=== PATIENT | female | born 1945 | race Hispanic/Latino ===

== ENCOUNTER 2023-07-24 15:57 | Inpatient (IN) | payer OTHER ==
--- OUTSIDE RECORDS SUMMARY | 2023-07-24 16:01 | XMS REPORT | Continuity of Care Document ---
:1945 Author Organization [facility] t Address [address] [facility] [address] [place] [id number] Care Team Providers Name Role Phone José Morrison Attending Clinician Unavailable Grady Murphy Attending Clinician Jocelyn-Mbayo_A_AH Attending Clinician Unavailable Jocelyn-Mbayo_A_AH Admitting Clinician Unavailable Payers Payer Name Policy Type Policy Number Effective Date Expiration Date S boris [facility] [id number] [facility]:00 (MEDICARE REPLACEMENT/ADVANT AGE - HMO) Problems Condition Condition Condition Status Onset Resolution Last Treating Co mments Source Name Details Category Date Date Treatment Clinician Date Obesity Obesity Problem Active 2019- [place] 5-22 Family 00:00: Practic 00 e Gallstone Gallstone Problem Active Lizbeth martinez 5-22 Family 00:00: Practic 00 e Hyperchole Hyperchole Problem Active 2019-0 V illage sterolemia sterolemia 5-22 Fa georges 00:00: Practic 00 e Major Major Problem Active 2019- [place] 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 Fa georges disorder Disorder 00:00: Practi c 00 e Cholecysti Problem Active 2023-02-13 M emoria tis Cholecysti 10:09:58 l without tis [place] calculus without (disorder) calculus (disorder) Active Problem 02/13/2023 [facility] Dementia Dementia Problem Active 2023-02-13 Memoria (disorder) (disorder) 10:09:58 l Active [place] Problem 02/13/2023 [facility] Hypertensi Hypertens Problem Active 2023-02-13 Memoria ve fabby 10:09:58 l disorder, disorder, Herm musa systemic systemic arterial arterial (disorder) (disorder) Active Problem 02/13/2023 [facility] Hyperlipid Hyperlipi Problem Active 2023-02-13 Memoria emia demia 10:09:58 l (disorder) (disorder) He rmann Active Problem 02/13/2023 [facility] Hypothyroi Hypothyro Problem Active 2023-02-13 Memoria dism idism 10:09:58 l (disorder) (disorder) He rmann Active Problem 02/13/2023 [facility] Labile Labile Problem Active 2023-02-13 [place] bro affect affect 10:09:58 l (finding) (finding) Herm musa Active Problem 02/13/2023 [facility] Memory Memory Problem Active 2023-02-13 Mem oria impairment impairment 10:09:58 l (finding) (finding) Herm musa Active Problem 02/13/2023 [facility] Morbid Morbid Problem Active 2023-02-13 [place] bro obesity obesity 10:09:58 l (disorder) (disorder) He rmann Active Problem 02/13/2023 [facility] 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 (disorder) (disorder) Active Problem 02/13/2023 [facility] [id number] Tobacco Problem Commo n use Spirit disorder - [facility] [id number] Acquired Problem Comm on hypothyroi Spirit dism - [facility] [id number] Mixed Problem Common hyperlipid Spirit emia - [facility] [id number] Alzheimer' Problem C ommon 17711 s disease Spirit with early - [facility] onset [facility] [id number] Incontinen Problem Com mon ce of Spirit feces, - [facility] unspecifie [facility] fecal [facility] incontinen Medica l ce type Center [id number] Current Problem Common moderate Spirit episode of - [facility] major [facility] without Center prior episode [id number] Body mass Problem Com mon index Spirit [BMI] - [facility] 40.0-44.9, [facility] [id number] Essential Problem Comm on hypertensi Spirit on - [facility] [id number] Morbid Problem Commo n 9104 (severe) Spirit obesity - [facility] due to [facility] [id number] Generalize Problem Com mon d anxiety Spirit disorder - [facility] Alzheimer' Alzheimer' Problem C ommon s disease 's disease Spi rit with late - CHI onset [facility] [id number] Elevated Problem Commo n fasting Spirit blood - [facility] sugar [facility] [id number] Noncomplia Problem Co mmon nce with Spirit dietary - [facility] restrictio [facility] Allergies, Adverse Reactions, Alerts Allergy Allergy Status Severity Reaction(s) Onset Inactive Treating Comm ents Source Name Type Date Date Clinician No Known No Known Active Memori a Medicati Medicati l on on Jayro Allergie Allergie s s Social History Social Habit Start Date Stop Date Quantity Comments Source History of Tobacco Current Smoker Co mmon Spirit - [facility] Use [facility] [place] Sex Assigned At Com mon Spirit - [facility] Smoking Status Start Date Stop Date Source Light Tobacco Smoker [facility] Practice Tobacco smoking status 2022-07-22 16:07:25 Tommyor rbuen Dial Medications Ordered Filled Start Stop Current Ordering Indication Dosage Frequency Signature Comments Components Source Medication Medication Date Date Medication? Clinician (SIG) Name Name memantine Yes = 1 tab, [place] bro 10 mg oral 2-28 PO, BID, # l tablet 17:48: 180 tab, 3 Lily nn 00 Refill(s), Pharmacy: [id number] memantine Yes = 1 tab, [place] bro 10 mg oral 2-28 PO, BID, # l tablet 17:48: 180 tab, 3 Lily nn 00 Refill(s), Pharmacy: [id number] Aricept 10 Yes 10 mg = 1 Me moria mg oral 8-25 tab, PO, l tablet 16:13: Bedtime, # Lily nn 00 90 tab, 3 Refill(s), Pharmacy: [facility] #[id number] Aricept 10 2021-0 Yes 10 mg = 1 Me moria mg oral 8-25 tab, PO, l tablet 16:13: Bedtime, # Lily nn 00 90 tab, 3 Refill(s), Pharmacy: [facility] #[id number] Aricept 10 2021-0 Yes 10 mg = 1 Me moria mg oral 8-25 tab, PO, l tablet 16:13: Bedtime, # Lily nn 00 90 tab, 3 Refill(s), Pharmacy: [facility] #[id number] cholestyram 2021-0 Yes 4 gm, PO, M emoria ine 8-25 BID, 0 l 16:09: Refill(s) [place] cholestyram 2021-0 Yes 4 gm, PO, M emoria ine 8-25 BID, 0 l 16:09: Refill(s) Jayro cholestyram 2021-0 Yes 4 gm, PO, M emoria ine 8-25 BID, 0 l 16:09: Refill(s) [place] memantine Yes = 1 tab, [place] bro 10 mg oral 3-23 PO, BID, # l tablet 14:44: 180 tab, 3 Lily nn 00 Refill(s), Pharmacy: [facility] #[id number], 142.24, cm, 07/18/20 11:38:00 CDT, Height, 85, kg, 07/18/20 11:38:00 CDT, Weight memantine Yes = 1 tab, [place] bro 10 mg oral 3-23 PO, BID, # l tablet 14:44: 180 tab, 3 Lily nn 00 Refill(s), Pharmacy: [facility] #[id number], 142.24, cm, 07/18/20 11:38:00 CDT, Height, 85, kg, 07/18/20 11:38:00 CDT, Weight memantine 0 Yes = 1 tab, [place] bro 10 mg oral 3-23 PO, BID, # l tablet 14:44: 180 tab, 3 Lily nn 00 Refill(s), Pharmacy: [facility] #[id number], 142.24, cm, 07/18/20 11:38:00 CDT, Height, 85, kg, 07/18/20 11:38:00 CDT, Weight memantine 2021-0 Yes = 1 tab, [place] bro 10 mg oral 2-25 PO, BID, # l tablet 16:17: 60 tab, 6 Shan n 00 Refill(s), Pharmacy: [facility] #[id number], 142.24, cm, 07/18/20 11:38:00 CDT, Height, 85, kg, 07/18/20 11:38:00 CDT, Weight memantine 2021-0 Yes = 1 tab, [place] bro 10 mg oral 2-25 PO, BID, # l tablet 16:17: 60 tab, 6 Shan n 00 Refill(s), [id number], 142.24, cm, 07/18/20 11:38:00 CDT, Height, 85, kg, 07/18/20 11:38:00 CDT, Weight memantine 2021-0 Yes = 1 tab, [place] bro 10 mg oral 2-25 PO, BID, # l tablet 16:17: 60 tab, 6 Shan n 00 Refill(s), [id number], 142.24, cm, 07/18/20 11:38:00 CDT, Height, 85, kg, 07/18/20 11:38:00 CDT, Weight Donepezil 2020-0 Yes 10 mg = 1 Mem oria hydrochlori 9-01 tab, PO, l de 10 MG 14:38: Bedtime, # Her phillips Oral Tablet 00 90 tab, 3 [Aricept] Refill(s), [id number], 142.24, cm, 07/18/20 11:38:00 CDT, Height, 85, kg, 07/18/20 11:38:00 CDT, Weight Donepezil 2020-0 Yes 10 mg = 1 Mem oria hydrochlori 9-01 tab, PO, l de 10 MG 14:38: Bedtime, # Her phillips Oral Tablet 00 90 tab, 3 [Aricept] Refill(s), [id number], 142.24, cm, 07/18/20 11:38:00 CDT, Height, 85, kg, 07/18/20 11:38:00 CDT, Weight Donepezil 2020-0 Yes 10 mg = 1 Mem oria hydrochlori 9-01 tab, PO, l de 10 MG 14:38: Bedtime, # Her phillips Oral Tablet 00 90 tab, 3 [Aricept] Refill(s), Pharmacy: [facility] #[id number], 142.24, cm, 07/18/20 11:38:00 CDT, Height, 85, kg, 07/18/20 11:38:00 CDT, Weight Donepezil 2020-0 Yes 10 mg = 1 Mem oria hydrochlori 8-25 tab, PO, l de 10 MG 16:25: Bedtime, # Her phillips Oral Tablet 00 30 tab, 4 [Aricept] Refill(s), Pharmacy: [facility] #[id number], 142.24, cm, 07/18/20 11:38:00 CDT, Height, 85, kg, 07/18/20 11:38:00 CDT, Weight Donepezil 2020-0 Yes 10 mg = 1 Mem oria hydrochlori 8-25 tab, PO, l de 10 MG 16:25: Bedtime, # Her phillips Oral Tablet 00 30 tab, 4 [Aricept] Refill(s), Pharmacy: [facility] #[id number], 142.24, cm, 07/18/20 11:38:00 CDT, Height, 85, kg, 07/18/20 11:38:00 CDT, Weight Donepezil 2020-0 Yes 10 mg = 1 Mem oria hydrochlori 8-25 tab, PO, l de 10 MG 16:25: Bedtime, # Her phillips Oral Tablet 00 30 tab, 4 [Aricept] Refill(s), Pharmacy: [facility] #[id number], 142.24, cm, 07/18/20 11:38:00 CDT, Height, 85, kg, 07/18/20 11:38:00 CDT, Weight Lidocaine Lidocaine 2020-0 No 10mg Com mon 5-10 Spirit 00:00: - [facility] 00 [facility] Celestone Celestone 2020-0 No 6mg Com mon Soluspan Soluspan 5-10 Spirit (Betamethas (Betamethas 00:00: - CHI one) one) 00 [facility] Lidocaine Lidocaine 2020-0 No 10mg Com mon 5-10 Spirit 00:00: - [facility] 00 [facility] Celestone Celestone 2020-0 No 6mg Com mon Soluspan Soluspan 5-10 Spirit (Betamethas (Betamethas 00:00: - CHI one) one) 00 [facility] Lidocaine Lidocaine 2020-0 No 10mg Com mon 5-10 Spirit 00:00: - [facility]I 00 [facility] Celestone Celestone 2020-0 No 6mg Com mon Soluspan Soluspan 5-10 Spirit (Betamethas (Betamethas 00:00: - CHI one) one) 00 [facility] Lidocaine Lidocaine 2020-0 No 10mg Com mon 5-10 Spirit 00:00: - [facility]I 00 [facility] Celestone Celestone 2020-0 No 6mg Com mon Soluspan Soluspan 5-10 Spirit (Betamethas (Betamethas 00:00: - CHI one) one) 00 [facility] Lidocaine Lidocaine 2020-0 No 10mg Com mon 5-10 Spirit 00:00: - [facility]I 00 [facility] Celestone Celestone 2020-0 No 6mg Com mon Soluspan Soluspan 5-10 Spirit (Betamethas (Betamethas 00:00: - CHI one) one) 00 [facility] Lidocaine Lidocaine 2020-0 No 10mg Com mon 5-10 Spirit 00:00: - [facility]I 00 [facility] Celestone Celestone 2020-0 No 6mg Com mon Soluspan Soluspan 5-10 Spirit (Betamethas (Betamethas 00:00: - CHI one) one) 00 [facility] Lidocaine Lidocaine 2020-0 No 10mg Com mon 5-10 Spirit 00:00: - [facility]I 00 [facility] Celestone Celestone 2020-0 No 6mg Com mon Soluspan Soluspan 5-10 Spirit (Betamethas (Betamethas 00:00: - CHI one) one) 00 [facility] Donepezil 2020-0 Yes 10 mg = 1 Mem oria hydrochlori 2-12 tab, PO, l de 10 MG 17:41: Bedtime, # Her phillips Oral Tablet 00 30 tab, 4 [Aricept] Refill(s), Pharmacy: [facility] #[id number], 142.24, cm, 07/18/20 11:38:00 CDT, Height, 85, kg, 07/18/20 11:38:00 CDT, Weight Donepezil 2021-0 Yes 10 mg = 1 Mem oria hydrochlori 2-12 tab, PO, l de 10 MG 17:41: Bedtime, # Her phillips Oral Tablet 00 30 tab, 4 [Aricept] Refill(s), Pharmacy: [facility] #[id number], 142.24, cm, 07/18/20 11:38:00 CDT, Height, 85, kg, 07/18/20 11:38:00 CDT, Weight Donepezil 1-0 Yes 10 mg = 1 Mem oria hydrochlori 2-12 tab, PO, l de 10 MG 17:41: Bedtime, # Her phillips Oral Tablet 00 30 tab, 4 [Aricept] Refill(s), Pharmacy: [facility] #[id number], 142.24, cm, 07/18/20 11:38:00 CDT, Height, 85, kg, 07/18/20 11:38:00 CDT, Weight Donepezil 2020-0 Yes 10 mg = 1 Mem oria hydrochlori 8-21 tab, PO, l de 10 MG 16:46: Bedtime, # Her phillips Oral Tablet 00 30 tab, 4 [Aricept] Refill(s), [id number], 142.24, cm, 07/18/20 11:38:00 CDT, Height, 85, kg, 07/18/20 11:38:00 CDT, Weight Donepezil 2020-0 Yes 10 mg = 1 Mem oria hydrochlori 8-21 tab, PO, l de 10 MG 16:46: Bedtime, # Her phillips Oral Tablet 00 30 tab, 4 [Aricept] Refill(s), Pharmacy: [facility] #[id number], 142.24, cm, 07/18/20 11:38:00 CDT, Height, 85, kg, 07/18/20 11:38:00 CDT, Weight Donepezil 2020-0 Yes 10 mg = 1 Mem oria hydrochlori 8-21 tab, PO, l de 10 MG 16:46: Bedtime, # Her phillips Oral Tablet 00 30 tab, 4 [Aricept] Refill(s), Pharmacy: [facility] #[id number], 142.24, cm, 07/18/20 11:38:00 CDT, Height, 85, kg, 07/18/20 11:38:00 CDT, Weight Donepezil 2020-0 Yes 10 mg = 1 Mem oria hydrochlori 5-21 tab, PO, l de 10 MG 17:04: Bedtime, # Her phillips Oral Tablet 00 30 tab, 4 [Aricept] Refill(s), Pharmacy: [facility] #[id number] Memantine 2020-0 Yes 10 mg = 1 Mem oria hydrochlori 5-21 tab, PO, l de 10 MG 17:04: BID, # 60 Herm musa Oral Tablet 00 tab, 6 [Namenda] Refill(s), Pharmacy: [id number] Donepezil 2020-0 Yes 10 mg = 1 Mem oria hydrochlori 5-21 tab, PO, l de 10 MG 17:04: Bedtime, # Her phillips Oral Tablet 00 30 tab, 4 [Aricept] Refill(s), Pharmacy: [facility] #[id number] Memantine 2020-0 Yes 10 mg = 1 Mem oria hydrochlori 5-21 tab, PO, l de 10 MG 17:04: BID, # 60 Herm musa Oral Tablet 00 tab, 6 [Namenda] Refill(s), Pharmacy: [id number] Donepezil 2020-0 Yes 10 mg = 1 Mem oria hydrochlori 5-21 tab, PO, l de 10 MG 17:04: Bedtime, # Her phillips Oral Tablet 00 30 tab, 4 [Aricept] Refill(s), Pharmacy: [id number] Memantine 2020-0 Yes 10 mg = 1 Mem oria hydrochlori 5-21 tab, PO, l de 10 MG 17:04: BID, # 60 Herm musa Oral Tablet 00 tab, 6 [Namenda] Refill(s), Pharmacy: [id number] Memantine 2020-0 Yes 5 mg = 1 [place] bro hydrochlori 1-23 tab, PO, l de 5 MG 17:55: BID, # 60 Lily nn Oral Tablet 00 tab, 6 [Namenda] Refill(s), Pharmacy: [id number] Memantine 2020-0 Yes 5 mg = 1 [place] bro hydrochlori 1-23 tab, PO, l de 5 MG 17:55: BID, # 60 Lily nn Oral Tablet 00 tab, 6 [Namenda] Refill(s), Pharmacy: [id number] Memantine 2020-0 Yes 5 mg = 1 [place] bro hydrochlori 1-23 tab, PO, l de 5 MG 17:55: BID, # 60 Lily nn Oral Tablet 00 tab, 6 [Namenda] Refill(s), Pharmacy: [facility] #[id number] Donepezil 2020-0 Yes 10 mg = 1 Mem oria hydrochlori 1-23 tab, PO, l de 10 MG 17:51: Bedtime, # Her phillips Oral Tablet 00 30 tab, 4 [Aricept] Refill(s), Pharmacy: [id number] Donepezil 2020-0 Yes 10 mg = 1 Mem oria hydrochlori 1-23 tab, PO, l de 10 MG 17:51: Bedtime, # Her phillips Oral Tablet 00 30 tab, 4 [Aricept] Refill(s), Pharmacy: [id number] Donepezil 2020-0 Yes 10 mg = 1 Mem oria hydrochlori 1-23 tab, PO, l de 10 MG 17:51: Bedtime, # Her phillips Oral Tablet 00 30 tab, 4 [Aricept] Refill(s), Pharmacy: [id number] Donepezil 2019-0 Yes 10 mg = 1 Mem oria hydrochlori 9-17 tab, PO, l de 10 MG 15:46: Bedtime, # Her phillips Oral Tablet 32 30 tab, 4 [Aricept] Refill(s), Pharmacy: [id number] Donepezil 2019-0 Yes 10 mg = 1 Mem oria hydrochlori 9-17 tab, PO, l de 10 MG 15:46: Bedtime, # Her phillips Oral Tablet 32 30 tab, 4 [Aricept] Refill(s), Pharmacy: [facility] #[id number] Donepezil 2019-0 Yes 10 mg = 1 Mem oria hydrochlori 9-17 tab, PO, l de 10 MG 15:46: Bedtime, # Her phillips Oral Tablet 32 30 tab, 4 [Aricept] Refill(s), [id number] Donepezil 2019-0 Yes 10 mg = 1 Mem oria hydrochlori 5-10 tab, PO, l de 10 MG 15:02: Bedtime, # Her phillips Oral Tablet 02 30 tab, 4 [Aricept] Refill(s), Pharmacy: [id number] Donepezil 2019-0 Yes 10 mg = 1 Mem oria hydrochlori 5-10 tab, PO, l de 10 MG 15:02: Bedtime, # Her phillips Oral Tablet 02 30 tab, 4 [Aricept] Refill(s), [id number] Donepezil 2019-0 Yes 10 mg = 1 Mem oria hydrochlori 5-10 tab, PO, l de 10 MG 15:02: Bedtime, # Her phillips Oral Tablet 02 30 tab, 4 [Aricept] Refill(s), [id number] Donepezil 2019-0 No 10 mg = 1 Mem oria hydrochlori 2-07 tab, PO, l de 10 MG 15:55: Bedtime, # Her phillips Oral Tablet 00 30 tab, 4 [Aricept] Refill(s), [id number] Donepezil 2019-0 No 10 mg = 1 Mem oria hydrochlori 2-07 tab, PO, l de 10 MG 15:55: Bedtime, # Her phillips Oral Tablet 00 30 tab, 4 [Aricept] Refill(s), [id number] Donepezil 2019-0 No 10 mg = 1 Mem oria hydrochlori 2-07 tab, PO, l de 10 MG 15:55: Bedtime, # Her phillips Oral Tablet 00 30 tab, 4 [Aricept] Refill(s), [id number] Donepezil 2018- No 5 mg = 1 [place] bro hydrochlori 2-19 tab, PO, l de 5 MG 15:23: Bedtime, # Herm musa Oral Tablet 00 30 tab, 3 [Aricept] Refill(s), [id number] Donepezil 2017-11 No 5 mg = 1 [place] bro hydrochlori 2-19 tab, PO, l de 5 MG 15:23: Bedtime, # Herm musa Oral Tablet 00 30 tab, 3 [Aricept] Refill(s), [id number] Donepezil 2017-11 No 5 mg = 1 [place] bro hydrochlori 2-19 tab, PO, l de 5 MG 15:23: Bedtime, # Herm musa Oral Tablet 00 30 tab, 3 [Aricept] Refill(s), [id number] lisinopril 2017-11 Yes 40 mg = 1 Me moria 40 mg oral 1-20 tab, PO, l tablet 16:34: Daily, # Jayro 00 30 tab, 0 Refill(s) metoprolol 2017-11 Yes 100 mg = 1 M emoria 100 mg oral 1-20 tab, PO, l tablet, 16:34: Daily, # Shan n extended 00 30 tab, 0 release Refill(s) amLODIPine 2017-11 Yes 5 mg = 1 Mem oria 5 mg oral 1-20 tab, PO, l tablet 16:34: Daily, # Jayro 00 30 tab, 0 Refill(s) levothyroxi 2017-11 Yes 88 Memori a ne 88 mcg 1-20 microgram l (0.088 mg) 16:34: = 1 tab, Her phillips oral tablet 00 PO, Daily, # 30 tab, 0 Refill(s) pravastatin 2017-11 Yes 20 mg = 1 M emoria 20 mg oral 1-20 tab, PO, l tablet 16:34: Bedtime, # Lily nn 00 30 tab, 0 Refill(s) amLODIPine 2017-11 Yes 5 mg = 1 Mem oria 5 mg oral 1-20 tab, PO, l tablet 16:34: Daily, # [place] 00 30 tab, 0 Refill(s) metoprolol 2017-11 Yes 100 mg = 1 M emoria 100 mg oral 1-20 tab, PO, l tablet, 16:34: Daily, # Shan n extended 00 30 tab, 0 release Refill(s) escitalopra 2017-11 Yes 10 mg = 1 M emoria m 10 mg 1-20 tab, PO, l oral tablet 16:34: Daily, # He rmann 00 30 tab, 0 Refill(s) pravastatin 2017-11 Yes 20 mg = 1 M emoria 20 mg oral 1-20 tab, PO, l tablet 16:34: Bedtime, # Lily nn 00 30 tab, 0 Refill(s) lisinopril 2017-11 Yes 40 mg = 1 Me moria 40 mg oral 1-20 tab, PO, l tablet 16:34: Daily, # [place] 00 30 tab, 0 Refill(s) levothyroxi 2017-11 Yes 88 Memori a ne 88 mcg 1-20 microgram l (0.088 mg) 16:34: = 1 tab, Her phillips oral tablet 00 PO, Daily, # 30 tab, 0 Refill(s) amLODIPine 2017-11 Yes 5 mg = 1 Mem oria 5 mg oral 1-20 tab, PO, l tablet 16:34: Daily, # [place] 00 30 tab, 0 Refill(s) metoprolol 2017-11 Yes 100 mg = 1 M emoria 100 mg oral 1-20 tab, PO, l tablet, 16:34: Daily, # Shan n extended 00 30 tab, 0 release Refill(s) escitalopra 2017-11 Yes 10 mg = 1 M emoria m 10 mg 1-20 tab, PO, l oral tablet 16:34: Daily, # Rai rmann 00 30 tab, 0 Refill(s) pravastatin 2017-11 Yes 20 mg = 1 M emoria 20 mg oral 1-20 tab, PO, l tablet 16:34: Bedtime, # Lily nn 00 30 tab, 0 Refill(s) lisinopril 2017-11 Yes 40 mg = 1 Me moria 40 mg oral 1-20 tab, PO, l tablet 16:34: Daily, # Jayro 00 30 tab, 0 Refill(s) levothyroxi 2017-11 Yes 88 Memori a ne 88 mcg 1-20 microgram l (0.088 mg) 16:34: = 1 tab, Her phillips oral tablet 00 PO, Daily, # 30 tab, 0 Refill(s) escitalopra 2017-11 Yes 10 mg = 1 M emoria m 10 mg 1-20 tab, PO, l oral tablet 16:34: Daily, # He rmann 00 30 tab, 0 Refill(s) Levothyroxi Levothyroxi Yes José 1 tablet Common ne Sodium ne Sodium Morrison in the Sp ange morning on - [facility] an empty [facility] Amlodipine Amlodipine Yes José 1 tablet Common Besylate Besylate Morrison [facility] Escitalopra Escitalopra Yes José 1 tablet Common m Oxalate m Oxalate Morrison Spir it [facility] Lisinopril Lisinopril Yes José 1 tablet Common Morrison [facility] Pravastatin Pravastatin Yes José 1 tablet Common Sodium Sodium Morrison [facility] Ursodiol Ursodiol Yes José as Commo n Morrison directed [facility] Multivitami Multivitami Yes José as Common ns ns Morrison directed [facility] Donezepil Donezepil Yes José one tablet Common HCl-10 mg HCl-10 mg Morrison Spir [facility] Metoprolol Metoprolol Yes José 1 tablet Common Succinate Succinate Morrison Spir it ER ER [facility] Memantine Memantine Yes José 1 tablet Common HCl HCl Morrison [facility] Donezepil Donezepil No Donezepil HCl-10 mg HCl-10 mg HCl-10 mg 10 mg 10 mg 10 mg amLODIPine amLODIPine No 1{table QD amLODIPine Besylate 5 Besylate 5 t} Besylate 5 MG MG MG Escitalopra Escitalopra No Escitalopr m Oxalate m Oxalate am Oxalate 10 MG 10 MG 10 MG Pravastatin Pravastatin No Pravastati Sodium 20 Sodium 20 n Sodium MG MG 20 MG Lisinopril Lisinopril No Lisinopril 40 MG 40 MG 40 MG Ursodiol Ursodiol No Ursodiol 300 MG 300 MG 300 MG Donezepil Donezepil No Donezepil HCl-10 mg HCl-10 mg HCl-10 mg 10 mg 10 mg 10 mg Vitamin D Vitamin D No Vitamin D (Cholecalci (Cholecalci (Cholecalc ferol) ferol) iferol) Metoprolol Metoprolol No 1{table QD Metoprolol Succinate Succinate t} Succinate ER 100 MG ER 100 MG ER 100 MG Levothyroxi Levothyroxi No QD Levothyrox ne Sodium ne Sodium ine Sodium 125 MCG 125 MCG 125 MCG Pravastatin Pravastatin No 1{table QD Pravastati Sodium 20 Sodium 20 t} n Sodium MG MG 20 MG Multivitami Multivitami No Multivitam ns - ns - ins - Ursodiol Ursodiol No Ursodiol 300 MG 300 MG 300 MG amLODIPine amLODIPine No 1{table QD amLODIPine Besylate 5 Besylate 5 t} Besylate 5 MG MG MG Escitalopra Escitalopra No Escitalopr m Oxalate m Oxalate am Oxalate 10 MG 10 MG 10 MG Memantine Memantine No 1{table QD Memantine HCl 5 MG HCl 5 MG t} HCl 5 MG Lisinopril Lisinopril No Lisinopril 40 MG 40 MG 40 MG Pravastatin Pravastatin No Pravastati Sodium 20 Sodium 20 n Sodium MG MG 20 MG Levothyroxi Levothyroxi No Levothyrox ne Sodium ne Sodium ine Sodium 125 MCG 125 MCG 125 MCG Metoprolol Metoprolol No Metoprolol Succinate Succinate Succinate ER 100 MG ER 100 MG ER 100 MG Lisinopril Lisinopril No Lisinopril 40 MG 40 MG 40 MG Ursodiol Ursodiol No Ursodiol 300 MG 300 MG 300 MG Pravastatin Pravastatin No Pravastati Sodium 20 Sodium 20 n Sodium MG MG 20 MG Multivitami Multivitami No Multivitam ns - ns - ins - Metoprolol Metoprolol No Metoprolol Succinate Succinate Succinate ER 100 MG ER 100 MG ER 100 MG Memantine Memantine No 1{table QD Memantine HCl 5 MG HCl 5 MG t} HCl 5 MG Levothyroxi Levothyroxi No Levothyrox ne Sodium ne Sodium ine Sodium 125 MCG 125 MCG 125 MCG Vitamin D Vitamin D No Vitamin D (Cholecalci (Cholecalci (Cholecalc ferol) ferol) iferol) Escitalopra Escitalopra No Escitalopr m Oxalate m Oxalate am Oxalate 10 MG 10 MG 10 MG amLODIPine amLODIPine No 1{table QD amLODIPine Besylate 5 Besylate 5 t} Besylate 5 MG MG MG Donezepil Donezepil No Donezepil HCl-10 mg HCl-10 mg HCl-10 mg 10 mg 10 mg 10 mg Pravastatin Pravastatin No 1{table QD Pravastati Sodium 20 Sodium 20 t} n Sodium MG MG 20 MG Metoprolol Metoprolol No 1{table QD Metoprolol Succinate Succinate t} Succinate ER 100 MG ER 100 MG ER 100 MG Multivitami Multivitami No Multivitam ns - ns - ins - Escitalopra Escitalopra No 1{table QD Escitalopr m Oxalate m Oxalate t} am Oxalate 10 MG 10 MG 10 MG Memantine Memantine No 1{table QD Memantine HCl 5 MG HCl 5 MG t} HCl 5 MG Levothyroxi Levothyroxi No Levothyrox ne Sodium ne Sodium ine Sodium 125 MCG 125 MCG 125 MCG Pravastatin Pravastatin No Pravastati Sodium 20 Sodium 20 n Sodium MG MG 20 MG Metoprolol Metoprolol No Metoprolol Succinate Succinate Succinate ER 100 MG ER 100 MG ER 100 MG Escitalopra Escitalopra No Escitalopr m Oxalate m Oxalate am Oxalate 10 MG 10 MG 10 MG Lisinopril Lisinopril No Lisinopril 40 MG 40 MG 40 MG amLODIPine amLODIPine No 1{table QD amLODIPine Besylate 5 Besylate 5 t} Besylate 5 MG MG MG Ursodiol Ursodiol No Ursodiol 300 MG 300 MG 300 MG Vitamin D Vitamin D No Vitamin D (Cholecalci (Cholecalci (Cholecalc ferol) ferol) iferol) Donezepil Donezepil No Donezepil HCl-10 mg HCl-10 mg HCl-10 mg 10 mg 10 mg 10 mg Levothyroxi Levothyroxi No QD Levothyrox ne Sodium ne Sodium ine Sodium 150 MCG 150 MCG 150 MCG Lisinopril Lisinopril No 1{table QD Lisinopril 40 MG 40 MG t} 40 MG Metoprolol Metoprolol No Metoprolol Succinate Succinate Succinate ER 100 MG ER 100 MG ER 100 MG Levothyroxi Levothyroxi No QD Levothyrox ne Sodium ne Sodium ine Sodium 150 MCG 150 MCG 150 MCG Memantine Memantine No 1{table QD Memantine HCl 5 MG HCl 5 MG t} HCl 5 MG Levothyroxi Levothyroxi No Levothyrox ne Sodium ne Sodium ine Sodium 125 MCG 125 MCG 125 MCG Pravastatin Pravastatin No Pravastati Sodium 20 Sodium 20 n Sodium MG MG 20 MG amLODIPine amLODIPine No 1{table QD amLODIPine Besylate 5 Besylate 5 t} Besylate 5 MG MG MG Vitamin D Vitamin D No Vitamin D (Cholecalci (Cholecalci (Cholecalc ferol) ferol) iferol) Ursodiol Ursodiol No Ursodiol 300 MG 300 MG 300 MG Escitalopra Escitalopra No Escitalopr m Oxalate m Oxalate am Oxalate 10 MG 10 MG 10 MG Lisinopril Lisinopril No Lisinopril 40 MG 40 MG 40 MG Metoprolol Metoprolol No 1{table QD Metoprolol Succinate Succinate t} Succinate ER 100 MG ER 100 MG ER 100 MG Donezepil Donezepil No Donezepil HCl-10 mg HCl-10 mg HCl-10 mg 10 mg 10 mg 10 mg Multivitami Multivitami No Multivitam ns - ns - ins - Pravastatin Pravastatin No 1{table QD Pravastati Sodium 20 Sodium 20 t} n Sodium MG MG 20 MG Memantine Memantine No 1{table QD Memantine HCl 5 MG HCl 5 MG t} HCl 5 MG Vitamin D Vitamin D No Vitamin D (Cholecalci (Cholecalci (Cholecalc ferol) ferol) iferol) Escitalopra Escitalopra No Escitalopr m Oxalate m Oxalate am Oxalate 10 MG 10 MG 10 MG amLODIPine amLODIPine No 1{table QD amLODIPine Besylate 5 Besylate 5 t} Besylate 5 MG MG MG Metoprolol Metoprolol No QD Metoprolol Succinate Succinate Succinate ER 100 MG ER 100 MG ER 100 MG Ursodiol Ursodiol No Ursodiol 300 MG 300 MG 300 MG Lisinopril Lisinopril No Lisinopril 40 MG 40 MG 40 MG Levothyroxi Levothyroxi No Levothyrox ne Sodium ne Sodium ine Sodium 125 MCG 125 MCG 125 MCG Levothyroxi Levothyroxi No QD Levothyrox ne Sodium ne Sodium ine Sodium 150 MCG 150 MCG 150 MCG Donezepil Donezepil No Donezepil HCl-10 mg HCl-10 mg HCl-10 mg 10 mg 10 mg 10 mg Pravastatin Pravastatin No QD Pravastati Sodium 20 Sodium 20 n Sodium MG MG 20 MG Multivitami Multivitami No Multivitam ns - ns - ins - Metoprolol Metoprolol No Metoprolol Succinate Succinate Succinate ER 100 MG ER 100 MG ER 100 MG Levothyroxi Levothyroxi No QD Levothyrox ne Sodium ne Sodium ine Sodium 150 MCG 150 MCG 150 MCG Memantine Memantine No 1{table QD Memantine HCl 5 MG HCl 5 MG t} HCl 5 MG Levothyroxi Levothyroxi No Levothyrox ne Sodium ne Sodium ine Sodium 125 MCG 125 MCG 125 MCG Pravastatin Pravastatin No Pravastati Sodium 20 Sodium 20 n Sodium MG MG 20 MG amLODIPine amLODIPine No 1{table QD amLODIPine Besylate 5 Besylate 5 t} Besylate 5 MG MG MG Vitamin D Vitamin D No Vitamin D (Cholecalci (Cholecalci (Cholecalc ferol) ferol) iferol) Ursodiol Ursodiol No Ursodiol 300 MG 300 MG 300 MG Escitalopra Escitalopra No Escitalopr m Oxalate m Oxalate am Oxalate 10 MG 10 MG 10 MG Lisinopril Lisinopril No Lisinopril 40 MG 40 MG 40 MG Metoprolol Metoprolol No 1{table QD Metoprolol Succinate Succinate t} Succinate ER 100 MG ER 100 MG ER 100 MG Donezepil Donezepil No Donezepil HCl-10 mg HCl-10 mg HCl-10 mg 10 mg 10 mg 10 mg Multivitami Multivitami No Multivitam ns - ns - ins - Pravastatin Pravastatin No 1{table QD Pravastati Sodium 20 Sodium 20 t} n Sodium MG MG 20 MG Metoprolol Metoprolol No Metoprolol Succinate Succinate Succinate ER 100 MG ER 100 MG ER 100 MG Multivitami Multivitami No Multivitam ns - ns - ins - Levothyroxi Levothyroxi No Levothyrox ne Sodium ne Sodium ine Sodium 125 MCG 125 MCG 125 MCG Levothyroxi Levothyroxi No QD Levothyrox ne Sodium ne Sodium ine Sodium 125 MCG 125 MCG 125 MCG Lisinopril Lisinopril No 1{table QD Lisinopril 40 MG 40 MG t} 40 MG Metoprolol Metoprolol No 1{table QD Metoprolol Succinate Succinate t} Succinate ER 100 MG ER 100 MG ER 100 MG Pravastatin Pravastatin No 1{table QD Pravastati Sodium 20 Sodium 20 t} n Sodium MG MG 20 MG Escitalopra Escitalopra No 1{table QD Escitalopr m Oxalate m Oxalate t} am Oxalate 10 MG 10 MG 10 MG Memantine Memantine No 1{table QD Memantine HCl 5 MG HCl 5 MG t} HCl 5 MG Vitamin D Vitamin D No Vitamin D (Cholecalci (Cholecalci (Cholecalc ferol) ferol) iferol) amlodipine amlodipine No 1 Q1D amlodipine [facility] 5 mg tablet 5 mg tablet 5 mg F amily Take 1 Take 1 tablet Practic tablet tablet Take 1 e every day every day tablet by oral by oral every day route. route. by oral route. donepezil donepezil No 1 Q1D donepezil [facility] 10 mg 10 mg 10 mg Family tablet Take tablet Take tablet Practic 1 tablet 1 tablet Take 1 e every day every day tablet by oral by oral every day route. route. by oral route. escitalopra escitalopra No 1 Q1D escitalopr [facility] m 10 mg m 10 mg am 10 mg Famil y tablet Take tablet Take tablet Practic 1 tablet 1 tablet Take 1 e every day every day tablet by oral by oral every day route. route. by oral route. levothyroxi levothyroxi No 1 Q1D levothyrox [facility] ne 125 mcg ne 125 mcg ine 125 Family tablet Take tablet Take mcg tablet Practic 1 tablet 1 tablet Take 1 e every day every day tablet by oral by oral every day route. route. by oral route. lisinopril lisinopril No 1 Q1D lisinopril [facility] 40 mg 40 mg 40 mg Family tablet Take tablet Take tablet Practic 1 tablet 1 tablet Take 1 e every day every day tablet by oral by oral every day route. route. by oral route. memantine 5 memantine 5 No 2 BID memantine [place] mg tablet mg tablet 5 mg Famil y Take 2 Take 2 tablet Practic tablets tablets Take 2 e twice a day twice a day tablets by oral by oral twice a route. route. day by oral route. metoprolol metoprolol No 1 BID metoprolol [facility] tartrate tartrate tartrate Fam hannah 100 mg 100 mg 100 mg Practic tablet Take tablet Take tablet e 1 tablet 1 tablet Take 1 twice a day twice a day tablet by oral by oral twice a route. route. day by oral route. pravastatin pravastatin No 1 Q1D pravastati [place] 20 mg 20 mg n 20 mg Family tablet Take tablet Take tablet Practic 1 tablet 1 tablet Take 1 e every day every day tablet by oral by oral every day route. route. by oral route. ursodiol ursodiol No 1mg BID ursodiol Lizbeth martinez 300 mg 300 mg 300 mg Family capsule capsule capsule Practi c Take 1 mg Take 1 mg Take 1 mg e twice a day twice a day twice a by oral by oral day by route. route. oral route. Immunizations Ordered Immunization Filled Immunization Date Status Commen ts Source Name Name [facility] COVID-19 Moderna COVID-19 2021-10-20 Completed [facility] 09:35:00 - [facility] Moderna COVID-19 Moderna COVID-19 2021-10-20 Completed [facility] Vaccine 09:35:00 - [facility] Moderna COVID-19 Moderna COVID-19 2021-10-20 Completed [facility]ine Vaccine 09:35:00 - [facility] Moderna COVID-19 Moderna COVID-19 2021-10-20 Completed [facility] Vaccine 09:35:00 - [facility] Moderna COVID-19 Moderna COVID-19 2021-10-20 Completed [facility] Vaccine Vaccine 09:35:00 - [facility] Moderna COVID-19 Moderna COVID-19 2021-10-20 Completed [facility]ine Vaccine 09:35:00 - [facility] Moderna COVID-19 Moderna COVID-19 2021-10-20 Completed [facility] Vaccine 09:35:00 - [facility] FluAD FluAD 2021-08-07 Completed [facility] 12:53:00 - [facility] FluAD FluAD 2021-08-07 Completed [facility] 12:53:00 [facility] FluAD FluAD 2021-08-07 Completed [facility] 12:53:00 [facility] FluAD FluAD 2021-08-07 Completed [facility] 12:53:00 [facility] FluAD FluAD 2021-08-07 Completed [facility] 12:53:00 [facility] FluAD FluAD 2021-08-07 Completed [facility] 12:53:00 [facility] FluAD FluAD 2021-08-07 Completed [facility] 12:53:00 [facility] Zostavax Zostavax 2019-12-11 Completed [facility] 15:15:00 [facility] Zostavax Zostavax 2019-12-11 Completed [facility] 15:15:00 - [facility] Zostavax Zostavax 2019-12-11 Completed [facility] 15:15:00 - [facility] Zostavax Zostavax 2019-12-11 Completed [facility] 15:15:00 - [facility] Zostavax Zostavax 2019-12-11 Completed [facility] 15:15:00 - [facility] Zostavax Zostavax 2019-12-11 Completed [facility] 15:15:00 - [facility] Zostavax Zostavax 2019-12-11 Completed [facility] 15:15:00 - [facility] Zostavax Zostavax 2019-09-07 Completed [facility] 15:15:00 - [facility] Zostavax Zostavax 2019-09-07 Completed [facility] 15:15:00 - [facility] Zostavax Zostavax 2019-09-07 Completed [facility] 15:15:00 - [facility] Zostavax Zostavax 2019-09-07 Completed [facility] 15:15:00 - [facility] Zostavax Zostavax 2019-09-07 Completed [facility] 15:15:00 - [facility] Zostavax Zostavax 2019-09-07 Completed [facility] 15:15:00 - [facility] Zostavax Zostavax 2019-09-07 Completed [facility] 15:15:00 - [facility] FluAD FluAD 2019-09-06 Completed [facility] 15:15:00 - [facility] FluAD FluAD 2019-09-06 Completed [facility] 15:15:00 - [facility] FluAD FluAD 2019-09-06 Completed [facility] 15:15:00 - [facility] FluAD FluAD 2019-09-06 Completed [facility] 15:15:00 - [facility] FluAD FluAD 2019-09-06 Completed [facility] 15:15:00 - [facility] FluAD FluAD 2019-09-06 Completed [facility] 15:15:00 - [facility] FluAD FluAD 2019-09-06 Completed [facility] 15:15:00 - [facility] PNEUMAVAX 23 PNEUMAVAX 23 2018-09-06 Completed [facility] 15:15:00 - [facility] PNEUMAVAX 23 PNEUMAVAX 23 2018-09-06 Completed [facility] 15:15:00 - [facility] PNEUMAVAX 23 PNEUMAVAX 23 2018-09-06 Completed [facility] 15:15:00 - [facility] PNEUMAVAX 23 PNEUMAVAX 23 2018-09-06 Completed [facility] 15:15:00 - [facility] PNEUMAVAX 23 PNEUMAVAX 23 2018-09-06 Completed [facility] 15:15:00 - [facility] PNEUMAVAX 23 PNEUMAVAX 23 2018-09-06 Completed [facility] 15:15:00 - [facility] PNEUMAVAX 23 PNEUMAVAX 23 2018-09-06 Completed [facility] 15:15:00 - [facility] Vital Signs Vital Name Observation Time Observation Value Comments Source height 2022-07-16 11:00:00 58 [in_i] [facility] weight 2022-07-16 11:00:00 206 [lb_av] [facility] temperature 2022-07-16 11:00:00 98 [degF] [facility] bmi 2022-07-16 11:00:00 43.05 kg/m2 [facility] blood pressure 2022-07-16 11:00:00 139 mm[Hg] [facility] systolic [facility] blood pressure 2022-07-16 11:00:00 83 mm[Hg] [facility] - diastolic [facility] height 2022-04-09 10:10:00 58 [in_i] [facility] weight 2022-04-09 10:10:00 204 [lb_av] [facility] temperature 2022-04-09 10:10:00 97 [degF] [facility] bmi 2022-04-09 10:10:00 42.63 kg/m2 [facility] blood pressure 2022-04-09 10:10:00 121 mm[Hg] [facility] - systolic [facility] blood pressure 2022-04-09 10:10:00 73 mm[Hg] [facility] - diastolic [facility] Height 2020-04-16 00:00:00 56 [in_i] [facility] BMI (Body Mass Index) 2020-04-16 00:00:00 41.3 kg/m2 [facility] Body Weight 2020-04-16 00:00:00 184 [lb_av] [facility] Systolic (mm Hg) 2023-02-10 18:27:00 [place] [facility] [place] Diastolic (mm Hg) 2023-02-10 18:27:00 [facility] [place] Heart Rate 2023-02-10 18:27:00 [facility] Height 2023-02-10 18:27:00 4 [ft_i] [facility] Weight 2023-02-10 18:27:00 [facility] BMI Calculated 2023-02-10 18:27:00 [facility] [place] Systolic (mm Hg) 2020-07-18 16:22:00 [place] [facility] [place] Diastolic (mm Hg) 2020-07-18 16:22:00 [facility] [place] Heart Rate 2020-07-18 16:22:00 [facility] Respitory Rate 2020-07-18 16:22:00 [facility] [place] Temperature Oral (F) 2020-07-18 16:22:00 97.4 F [facility] Height 2020-07-18 16:22:00 142.24 cm [facility] Weight 2020-07-18 16:22:00 [facility] BMI Calculated 2020-07-18 16:22:00 [facility] [place] Systolic (mm Hg) 2020-04-17 16:44:00 [place] [place] Diastolic (mm Hg) 2020-04-17 16:44:00 [facility] [place] Heart Rate 2020-04-17 16:44:00 [facility] Respitory Rate 2020-04-17 16:44:00 [facility] [place] Height 2020-04-17 16:44:00 147.32 cm [facility] Weight 2020-04-17 16:44:00 [facility] BMI Calculated 2020-04-17 16:44:00 [facility] [place] Systolic (mm Hg) 2019-12-20 17:12:00 [place] [facility] [place] Diastolic (mm Hg) 2019-12-20 17:12:00 [facility] [place] Heart Rate 2019-12-20 17:12:00 [facility] [place] Respitory Rate 2019-12-20 17:12:00 [facility] [place] Height 2019-12-20 17:12:00 144.78 cm [facility] Weight 2019-12-20 17:12:00 [facility] BMI Calculated 2019-12-20 17:12:00 [facility] [place] Systolic (mm Hg) 2019-08-14 14:56:00 [place] [facility] [place] Diastolic (mm Hg) 2019-08-14 14:56:00 [facility] [place] Heart Rate 2019-08-14 14:56:00 [facility] Respitory Rate 2019-08-14 14:56:00 [facility] [place] Height 2019-08-14 14:56:00 144.78 cm [facility] Weight 2019-08-14 14:56:00 [facility] BMI Calculated 2019-08-14 14:56:00 [facility] [place] BMI Calculated 2019-04-06 14:40:00 [facility] [place] Height 2019-04-06 14:40:00 144.78 cm [facility] Weight 2019-04-06 14:40:00 [facility] Heart Rate 2019-04-06 14:40:00 [facility] Respitory Rate 2019-04-06 14:40:00 [facility] [place] Systolic (mm Hg) 2019-04-06 14:40:00 [place] [facility] [place] Diastolic (mm Hg) 2019-04-06 14:40:00 [facility] [place] Systolic (mm Hg) 2019-01-04 15:21:00 [place] [facility] [place] Diastolic (mm Hg) 2019-01-04 15:21:00 [facility] [place] Heart Rate 2019-01-04 15:21:00 [facility] [place] Respitory Rate 2019-01-04 15:21:00 [facility] [place] Height 2019-01-04 15:21:00 147.32 cm [facility] Weight 2019-01-04 15:21:00 [facility] BMI Calculated 2019-01-04 15:21:00 [facility] [place] Respitory Rate 2018-10-17 16:27:00 [facility] [place] Systolic (mm Hg) 2018-10-17 16:27:00 [place] Dial Diastolic (mm Hg) 2018-10-17 16:27:00 Tommy Dial Height 2018-10-17 16:27:00 144.78 cm [facility] Weight 2018-10-17 16:27:00 [facility] BMI Calculated 2018-10-17 16:27:00 [facility] [place] Heart Rate 2018-10-17 16:27:00 [facility] Procedures This patient has no known procedures. Plan of Care Planned Activity Planned Date Details Comments Source Instructions [facility] Encounters Start End Encounter Admission Attending Care Care Encounter Source Date/Time Date/Time Type Type Clinicians Facility Department ID 2023-07-13 Outpatient Morrison, STLMLC STLMLC [id number] Common 10:47:00 José [id number] [facility] 2023-04-05 Outpatient Morrison, STLMLC STLMLC [id number] Common 11:03:02 José [id number] [facility] 2022-11-05 Outpatient Morrison, STLMLC STLMLC [id number] Common 10:48:02 José [id number] [facility] 2022-10-14 Outpatient Morrison, STLMLC STLMLC [id number] Common 16:31:01 José [id number] [facility] 2022-04-08 Outpatient Morrison, STLMLC STLMLC [id number] Common 11:43:00 José [facility] 2021-12-23 Outpatient Morrison, STLMLC STLMLC [id number] Common 13:47:31 José [id number] [facility] 2021-12-23 Outpatient Morrison, STLMLC STLMLC [id number] Common 13:23:01 José [id number] [facility] 2021-12-23 Outpatient Morrison, STLMLC STLMLC [id number] Common 13:01:30 José [id number] [facility] 2021-12-23 Outpatient Morrison, STLMLC STLC [id number] Common 12:54:48 José 79081 [facility] 2021-12-23 Outpatient Morrison, STLMLC STLC [id number] Common 12:53:24 José 35916 [facility] 2021-12-23 Outpatient Morrison, STLMLC STLC [id number] Common 12:45:04 José 55446 [facility] 2021-12-23 Outpatient Morrison, STLMLC [facility] [id number] Common 12:40:06 José [id number] [facility] 2021-12-23 Outpatient Morrison, STLC [facility] [id number] Common 11:21:38 José [id number] [facility] 2023-08-16 2023-08-16 Outpatient MHIE MHIE [id number] Memoria 11:00:00 11:00:00 18 sachi Dial 2023-08-16 2023-08-16 Outpatient MHIE MHIE [id number] Memoria 11:00:00 11:00:00 18 sachi Dial 2023-02-10 2023-02-11 Outpatient MHIE MNA [id number] Memoria 18:00:00 04:59:59 Neurology 17 sachi Hannaann 2023-02-10 2023-02-11 Outpatient MHIE MNA [id number] Memoria 18:00:00 04:59:59 Neurology 17 s[place] 2023-02-10 2023-02-10 [id number] 13:00:00 23:59:59 Grady 17 Clif 2023-02-10 2023-02-10 Outpatient MHIE MHIE [id number] Memoria 13:00:00 13:00:00 17 sachi Dial 2023-01-25 2023-01-25 Ambulatory MHIE MNA [id number] Memoria 17:00:00 17:00:00 Pre-Reg Neurology 16 sachi Hannaann 2023-01-25 2023-01-25 Ambulatory MHIE MNA [id number] Memoria 17:00:00 17:00:00 Pre-Reg Neurology 16 sachi Dial 2023-01-25 2023-01-25 Outpatient MHIE MHIE [id number] Memoria 11:00:00 11:00:00 16 sachi Dial 2023-01-25 2023-01-25 Outpatient MARY ANNE MurphySCHER MHMISCHER [id number] 11:00:00 11:00:00 Grady 16 Clif 2022-10-14 2022-10-14 (TEL) STLMLC STLMLC [id number] [facility] 00:00:00 00:00:00 [facility] 2022-09-02 2022-09-02 (TEL) STLMLC STLMLC [id number] Co mmon 00:00:00 00:00:00 [facility] 2022-07-22 2022-07-23 Outpatient nullFlavo MNA [id number] Memoria 16:00:00 04:59:59 r Neurology 15 l Amberly Hannaann 2022-07-22 2022-07-23 Outpatient nullFlavo MNA [id number] Memoria 16:00:00 04:59:59 r Neurology 15 l Amberly Dial 2022-07-22 2022-07-22 Outpatient MARY ANNE MurphySCHER MHMISCHER [id number] 11:00:00 23:59:59 Grady 15 Clif 2022-07-22 2022-07-22 Outpatient MHIE MHIE [id number] Memoria 11:00:00 11:00:00 15 sachi Dial 2022-07-16 2022-07-16 OFFICE STLMLC STLMLC [id number] Co mmon 00:00:00 00:00:00 VISIT [facility] LEVEL 4 [facility] 2022-06-29 2022-06-29 (TEL) STLMLC STLMLC [id number] Co mmon 00:00:00 00:00:00 [facility] 2022-06-04 2022-06-04 (TEL) STLMLC STLMLC [id number] Co mmon 00:00:00 00:00:00 [facility] 2022-04-09 2022-04-09 OFFICE STLMLC STLMLC [id number] Co mmon 00:00:00 00:00:00 VISIT [facility] 4 [facility] 2022-01-22 2022-01-23 Outpatient nullFlavo MNA [id number] Memoria 16:00:00 05:59:59 r Neurology 14 l Amberly Dial 2022-01-22 2022-01-23 Outpatient nullFlavo MNA [id number] Memoria 16:00:00 05:59:59 r Neurology 14 l Amberly Hannaann 2022-01-22 2022-01-22 Outpatient Katherine, MHMISCHER MISCHER [id number] 10:00:00 23:59:59 Grady 14 Clif 2022-01-22 2022-01-22 Outpatient MHIE MHIE [id number] Memoria 10:00:00 10:00:00 14 sachi Dial 2021-08-07 2021-08-07 Outpatient STLMLC STLMLC [id number] Common 00:00:00 00:00:00 [facility] 2021-08-07 2021-08-07 Outpatient STLMLC STLMLC [id number] Common 00:00:00 00:00:00 [facility] 2021-07-22 2021-07-23 Outpatient nullFlavo MNA [id number] Memoria 14:30:00 04:59:59 r Neurology 13 l Amberly Hannaann 2021-07-22 2021-07-23 Outpatient nullFlavo MNA [id number] Memoria 14:30:00 04:59:59 r Neurology 13 l Amberly Hannaann 2021-07-22 2021-07-22 Outpatient Katherine, MHMISCHER MISCHER [id number] 09:30:00 23:59:59 Grady 13 Clif 2021-07-22 2021-07-22 Outpatient MHIE MHIE [id number] Memoria 09:30:00 09:30:00 13 sachi Dial 2021-07-13 2021-07-13 Outpatient STLMLC STLMLC [id number] Common 00:00:00 00:00:00 [facility] 2021-07-09 2021-07-09 Ambulatory nullFlavo MNA [id number] Memoria 16:00:00 16:00:00 Pre-Reg r Neurology 12 sachi Dial 2021-07-09 2021-07-09 Ambulatory nullFlavo MNA [id number] Memoria 16:00:00 16:00:00 Pre-Reg r Neurology 12 l Amberly Dial 2021-07-09 2021-07-09 Outpatient MHIE IE [id number] Memoria 11:00:00 11:00:00 12 sachi Dial 2021-07-09 2021-07-09 [facility] [id number] 11:00:00 11:00:00 Grady 12 Clif 2021-06-11 2021-06-11 Outpatient STLMLC STLMLC [id number] Common 00:00:00 00:00:00 [facility] 2021-06-04 2021-06-04 Outpatient STLMLC STLMLC [id number] Common 00:00:00 00:00:00 [facility] 2021-04-06 2021-04-06 Outpatient STLMLC STLMLC [id number] Common 00:00:00 00:00:00 [facility] 2021-03-16 2021-03-16 Outpatient STLMLC STLMLC [id number] Common 00:00:00 00:00:00 [facility] 2021-02-10 2021-02-10 Outpatient STLMLC STLMLC [id number] Common 00:00:00 00:00:00 [facility] 2021-01-09 2021-01-10 Outpatient nullFlavo MNA [id number] Memoria 17:15:00 05:59:59 r Neurology 11 sachi Dial 2021-01-09 2021-01-10 Outpatient nullFlavo MNA [id number] Memoria 17:15:00 05:59:59 r Neurology 11 sachi Dial 2021-01-09 2021-01-09 Outpatient MARY ANNE MurphySCHER MISCHER [id number] 11:15:00 23:59:59 [place] 11 Clif 2021-01-09 2021-01-09 Outpatient MHIE MHIE [id number] Memoria 11:15:00 11:15:00 11 [place] 2020-11-24 2020-11-24 Outpatient STLMLC STLMLC [id number] Common 00:00:00 00:00:00 [facility] 2020-11-12 2020-11-12 Outpatient STLMLC STLMLC [id number] Common 00:00:00 00:00:00 [facility] 2020-07-18 2020-07-19 Outpatient nullFlavo MNA [id number] Memoria 16:15:00 04:59:59 r Neurology 10 l [place] 2020-07-18 2020-07-19 Outpatient nullFlavo MNA [id number] Memoria 16:15:00 04:59:59 r Neurology 10 l [place] 2020-07-18 2020-07-18 Outpatient MARY ANNE MurphySCHER MISCHER [id number] 11:15:00 23:59:59 Grady Kathy Clif 2020-07-18 2020-07-18 Ambulatory nullFlavo MNA [id number] Memoria 16:15:00 16:15:00 Pre-Reg r Neurology 09 l [place] 2020-07-18 2020-07-18 Ambulatory nullFlavo MNA [id number] Memoria 16:15:00 16:15:00 Pre-Reg r Neurology 09 l [place] 2020-07-18 2020-07-18 Outpatient MHIE MHIE [id number] Memoria 11:15:00 11:15:00 10 [place] 2020-07-18 2020-07-18 Outpatient MHIE MHIE [id number] Memoria 11:15:00 11:15:00 09 l [place] 2020-07-18 2020-07-18 Outpatient HERNESTO Murphy MISCHER [id number] 11:15:00 11:15:00 Grady 09 Clif 2020-07-09 2020-07-09 [facility] [id number] Common 14:00:00 14:00:00 [place] [employer] [employer] [facility] 2020-07-09 2020-07-09 Out[facility] [id number] Common 13:15:00 13:15:[address] [facility] 2020-06-18 2020-06-18 Out[facility] [id number] Common 14:07:00 14:07:[address] [facility] 2020-05-03 2020-05-03 Outpatient Jocelyn-Mbayo VFP VFP [id number] [facility] 12:05:00 12:05:00 _A_AH [id number] Family Practic e 2020-04-22 2020-04-22 Outpatient Jocelyn-Mbayo VFP VFP [phone] [facility] 05:33:00 05:33:00 _A_AH [id number] Family Practic e 2020-04-17 2020-04-18 Outpatient nullFlavo MNA [id number] [facility] 16:30:00 04:59:59 r Neurology 08 l Amberly [place] 2020-04-17 2020-04-18 Outpatient nullFlavo MNA [id number] [facility] 16:30:00 04:59:59 r Neurology 08 l Amberly Dial 2020-04-17 2020-04-17 Outpatient Katherine, MHMISCHER MHMISCHER [id number] 11:30:00 23:59:59 Grady 08 Clif 2020-04-17 2020-04-17 Outpatient MHIE MHIE [id number] Memoria 11:30:00 11:30:00 08 l Jayro 2020-04-17 2020-04-17 [facility] [id number] Common 10:15:00 10:15:[address] [facility] 2020-04-16 2020-04-16 [place] VFP [place] - [id number] V illage 00:00:00 00:00:00 [place] Fam hannah smith PURIFICATION DIRECTOR: Medical - Practi jami 9235 Alisha [email or web address]_ e [facility], [address] [address], [place] [address] , Ph. 2020-04-08 2020-04-08 [facility] [id number] Common 15:00:00 15:00:00 t Bronson [place] Spir it Communication Science [facility] 2020-01-16 2020-01-16 Outpatient Holli VFP [facility] [id number] [facility] 07:20:00 07:20:00 _[id number] [id number] Family Practic e 2019-12-20 2019-12-21 Outpatient nullFlavo MNA [id number] Memoria 17:15:00 05:59:59 r Neurology 07 l Amberly Dial 2019-12-20 2019-12-21 Outpatient nullFlavo MNA [id number] Memoria 17:15:00 05:59:59 r Neurology 07 l Amberly Hannaann 2019-12-20 2019-12-20 Outpatient MARY ANNE MurphySCHER MHMISCHER [id number] 11:15:00 23:59:59 Grady Steven Menezes 2019-12-20 2019-12-20 Outpatient MHIE MHIE [id number] Memoria 11:15:00 11:15:00 07 l Jayro 2019-12-18 2019-12-18 Ambulatory nullFlavo MNA [id number] Memoria 16:30:00 16:30:00 Pre-Reg r Neurology 06 l Amberly Dial 2019-12-18 2019-12-18 Ambulatory nullFlavo MNA [id number] Memoria 16:30:00 16:30:00 Pre-Reg r Neurology 06 l Amberly Dial 2019-12-18 2019-12-18 Outpatient MHIE MHIE [id number] Memoria 10:30:00 10:30:00 Maren Hannaann 2019-12-18 2019-12-18 Outpatient HERNESTO Murphy MISCHER [id number] 10:30:00 10:30:00 Grady Maren Menezes 2019-08-14 2019-08-15 Outpatient nullFlavo MNA [id number] Memoria 15:00:00 04:59:59 r Neurology 05 sachi Hannaann 2019-08-14 2019-08-15 Outpatient nullFlavo MNA [id number] Memoria 15:00:00 04:59:59 r Neurology 05 l [place] Hanna[place] 2019-08-14 2019-08-14 Outpatient MARY ANNE MurphySCHSARA MHMISCHER [id number] 10:00:00 23:59:59 Grady Joana Menezes 2019-08-14 2019-08-14 Outpatient MHIE MHIE [id number] Memoria 10:00:00 10:00:00 05 sachi Dial 2019-04-06 2019-04-07 Outpatient nullFlavo MNA [id number] Memoria 14:30:00 04:59:59 r Neurology 04 sachi Hannaann 2019-04-06 2019-04-07 Outpatient nullFlavo MNA [id number] Memoria 14:30:00 04:59:59 r Neurology 04 sachi Hannaann 2019-04-06 2019-04-06 [id number] 09:30:00 23:59:59 Grady Jesusita Menezes 2019-04-06 2019-04-06 Outpatient MHIE MHIE [id number] Memoria 09:30:00 09:30:00 04 sachi Jayro 2019-02-14 2019-02-14 Outpatient MHIE MHIE [id number] Memoria 09:45:00 09:45:00 03 sachi Jayro 2019-02-14 2019-02-14 Outpatient MHIE MHIE [id number] Memoria 09:45:00 09:45:00 03 sachi [place] 2019-01-04 2019-01-05 Outpatient nullFlavo MNA [id number] Memoria 15:15:00 05:59:59 r Neurology 02 sachi [place] Jayro 2019-01-04 2019-01-05 Outpatient nullFlavo MNA [id number] Memoria 15:15:00 05:59:59 r Neurology 02 sachi [place] Jay[place] 2019-01-04 2019-01-04 [facility] [id number] 09:15:00 23:59:59 Grady Andre Clif 2019-01-04 2019-01-04 Outpatient MHIE MHIE [id number] Memoria 09:15:00 09:15:00 02 sachi [place] 2018-11-15 2018-11-16 Outpatient nullFlavo MNA [id number] Memoria 14:45:00 05:59:59 r Neurology 01 sachi [place] Jayro 2018-11-15 2018-11-16 Outpatient nullFlavo MNA [id number] Memoria 14:45:00 05:59:59 r Neurology 01 l Amberly Dial 2018-11-15 2018-11-15 Outpatient [facility] [id number] 08:45:00 23:59:59 Grady 01 Clif 2018-11-15 2018-11-15 Outpatient MHIE LANDY [id number] Memoria 08:45:00 08:45:00 01 l [place] 2018-10-17 2018-10-18 Outpatient nullFlavo MNA [id number] Memoria 16:30:00 05:59:59 r Neurology 00 l Amberly Dial 2018-10-17 2018-10-18 Outpatient nullFlavo MNA [id number] Memoria 16:30:00 05:59:59 r Neurology 00 l Amberly Dial 2018-10-17 2018-10-17 [facility] [id number] 10:30:00 23:59:59 Grady 00 Clif 2018-10-17 2018-10-17 Outpatient STEPHANIE STEPHANIE [id number] Memoria 10:30:00 10:30:00 00 l [place] 2018-09-05 2018-09-07 Outside nullFlavo MNA [id number] Memoria 19:34:00 04:59:59 Medical r Neurology 00 l Records Amberly Dial 2018-09-05 2018-09-07 Outside nullFlavo MNA [id number] Memoria 19:34:00 04:59:59 Medical r Neurology 00 l Records Amberly Dial 2018-09-05 2018-09-06 Outpatient [facility] [id number] 14:34:00 23:59:59 00 Results Test Description Test Time Test Comments Results Result Comments Source ANEMIA STUDY 2018-10-24 21:44:00 Test Item Value Reference Range Interpretation Comme nts Vitamin B12 Lvl (test code = Vitamin B12 Lvl) [phone] [id number] 21:44:00 Test Item Value Reference Range Interpretation Comments Sed Rate (test code = Sed Rate) 6 [facility] [id number] 21:44:00 Test Item Value Reference Range Interpretation Comments Vitamin B12 Lvl (test code = Vitamin [id number] B12 Lvl) [id number] 21:44:00 Test Item Value Reference Range Interpretation Comments Sed Rate (test code = Sed Rate) [address] [facility]2018-11-27 21:44:00 Test Item Value Reference Range Interpretation Comments Vitamin B12 Lvl (test code = Vitamin [phone] B12 Lvl) [facility] H[id number] 21:44:00 Test Item Value Reference Range Interpretation Comments Sed Rate (test code = Sed Rate) 6 [facility]
[2023-07-24 16:54] LABS: Absolute Lymphocytes (CBC) 0.5 K/uL (0.7-4.9); Hematocrit 38.3 % (36.0-45.0); Lymphocytes % 3.3 % (15.3-44.8); MPV 10.4 fL (7.6-11.3); Platelets 97 thou/uL (152-406); RBC Red Blood Cell Count 3.98 M/uL (3.86-4.86)
[2023-07-24 16:54] LABS: Specific Gravity 1.017 (1.005-1.030); Urine Bacteria 20-50 /HPF (<20); Urine Bilirubin NEGATIVE (Negative); Urine Blood 2+ (Negative); Urine Clarity Extremely Turbid (Clear); Urine Color Yellow (Yellow); Urine Glucose NEGATIVE (Negative); Urine Mucus Slight /HPF (None Seen); Urine Protein 2+ (Negative); Urine Urobilinogen Normal (Normal); Urine WBC Clump Occasional /HPF (None Seen)
[2023-07-24 17:26] LABS: Potassium 3.9 mEq/L (3.5-5.1)
[2023-07-24 17:27] LABS: Troponin High Sensitivity 72.9 pg/mL (<58.9)
--- NOTE | 2023-07-24 18:07 | RAD REPORT ---
EXAM DESCRIPTION: Jaycob Single View07/24/2023 5:42 pm CLINICAL HISTORY: Syncope COMPARISON: Chest Pa And Lat (2 Views) dated 11/10/2018 TECHNIQUE: Portable AP view of the chest. FINDINGS: Central interstitial prominence and perihilar and left basilar patchy opacities. No pneumo thorax or effusion. The cardiomediastinal contours are unremarkable. IMPRESSION: Central opacities as above, suggestive of central congestion. Superimposed pneumonia wou ld be difficult to exclude.
--- NOTE | 2023-07-24 18:22 | RAD REPORT ---
EXAM DESCRIPTION: CT - Head Brain Wo Cont - 07/24/2023 5:47 pm CLINICAL HISTORY: MENTAL STATUS CHANGE COMPARISON: No comparisons TECHNIQUE: Noncontrast head CT images ad were obtained without IV contrast. Multiplanar reformats we re generated and reviewed. All CT scans are performed using dose optimization technique as appropriate and may include automated exposure control or mA/KV adjustment according to patient size. FINDINGS: No intracranial hemorrhage, mass, or edema. Midline structures are unremarkable. Normal ventricular caliber for age. Dong-white matter differentiation is preserved, without evidence of acute infarct. No abnormal extra- axial fluid collections. Patchy white matter changes, nonspecific, but suggest chronic small vessel changes. Mastoid air cells and visualized portions of the paranasal sinuses are clear. No acute bony findings. IMPRESSION: No evidence of an acute intracranial process.
[2023-07-24] MEDS ORDERED: NA CHLORIDE 0.9% 1,000 ML ONE (18:27)
--- NOTE | 2023-07-24 18:33 | RAD REPORT ---
EXAM DESCRIPTION: CT - Abdomen Pelvis Wo Contrast - 07/24/2023 5:49 pm CLINICAL HISTORY: diarrhea COMPARISON: Head Brain Wo Cont dated 07/24/2023 TECHNIQUE: Thin cut axial CT imaging of the abdomen and pelvis was performed without IV contrast. Mu ltiplanar reformats were generated and reviewed. All CT scans are performed using dose optimization technique as appropriate and may include automated exposure control or mA/KV adjustment according to patient size. FINDINGS: No suspicious findings in the lung bases. The liver is mildly enlarged, showing diffuse hepatic parenchymal hypoattenuation suggesting steatosi s. Adrenal glands, spleen, and pancreas show no suspicious findings. Gallbladder and biliary tree are also without suspicious finding. Symmetric renal contour, without suspicious parenchymal findings within limits of noncontrast techniq ue. No evidence of radiopaque calculi or hydroureteronephrosis. Right perinephric and periureteric fa t stranding. No dilated bowel loops or bowel wall thickening. Colonic diverticulosis. No free air, free fluid or i nflammatory stranding. No hernia, mass or bulky lymphadenopathy. The urinary bladder is suboptimally distended limiting evaluation. No suspicious bony findings. IMPRESSION: Nonspecific right perinephric and periureteric fat stranding. This could relate to recen tly passed stone or ongoing pyelonephritis. Please correlate clinically, and with urinalysis results. No other acute intra-abdominal process. Diffuse hepatic parenchymal hypoattenuation suggesting steatosis.
--- NOTE | 2023-07-24 19:00 | ER ---
Nurse's Notes [facility] Name: Carlota Wilkins Age: 78 yrs Sex: Female : 1945 Arrival Date: 07/24/2023 Time: 15:57 Bed 18 Private MD: Diagnosis: Pyelonephritis acute;Altered mental status, unspecified;Severe sepsis without septic shock Presentation: 07/24 16:26 Chief complaint: EMS states: they were called to patient's home for syncopal episode. cm10 Per EMS report, pt has been lethargic all day today and has had 2 episodes of being incontinent of BM. Pt is A\T\Ox3 upon arrival to the ED. Pts daughter states that patient has been lethargic all day today. Coronavirus screen: Client denies travel out of the [place] in the last 14 days. Ebola Screen: Patient denies travel to an Ebola-affected area in the 21 days before illness onset. No symptoms or risks identified at this time. Initial Sepsis Screen: Does the patient meet any 2 criteria? No. Patient's initial sepsis screen is negative. Does the patient have a suspected source of infection? No. Patient's initial sepsis screen is negative. Risk Assessment: Do you want to hurt yourself or someone else? Patient reports desire/thoughts of hurting themselves or someone else. Provider notified. Onset of symptoms was July 24, 2023. 16:26 Method Of Arrival: EMS: [facility] cm10 16:26 Acuity: ELISA 2 cm10 16:34 Care prior to arrival: Medication(s) given: Normal saline infusion, 500 mL, IV cm10 initiated. 18 GA, in the left forearm. 16:35 Chief complaint: Patient's son or daughter states: Pt was last seen to her normal on cm10 Tuesday. Historical: - Allergies: 16:32 No Known Allergies; cm10 - PMHx: 16:32 Dementia; Diabetes mellitus; Hypertensive disorder; Hypothyroidism; Diverticulitis; cm10 - Immunization history:: Adult Immunizations unknown. - Social history:: Smoking status: Patient denies any tobacco usage or history of. Screenin:58 [facility] ED Fall Risk Assessment (Adult) History of falling in the last 3 months, me1 including since admission Yes- single mechanical fall (1 pt) Confusion or Disorientation Yes (5 pts) Intoxicated or Sedated No (0 pts) Impaired Gait Yes (1 pt) Mobility Assist Device Used Yes (1 pt) Altered Elimination Yes (1 pt) Score/Fall Risk Level 3 or more points = High Risk. Abuse screen: Denies threats or abuse. Nutritional screening: No deficits noted. Tuberculosis screening: No symptoms or risk factors identified. Assessment: 16:58 General: Appears uncomfortable, Behavior is calm, cooperative, appropriate for age. me1 General: Reports fatigue for 1-2 days. Pain: Denies pain. Pain: Complains of pain in right leg. Neuro: Level of Consciousness is awake, alert, obeys commands, Oriented to person, time. Cardiovascular: Capillary refill < 3 seconds Patient's skin is warm and dry. Respiratory: Airway is patent Respiratory effort is even, unlabored, Respiratory pattern is regular, symmetrical. GI: Reports incontinence, since today. : Reports incontinence, since today. Vital Signs: 16:26 BP 90 / 57; Pulse 83; Resp 18; Pulse Ox 96% ; cm10 16:33 Temp 99.4(O); Weight 87.09 kg; Height 4 ft. 10 in. ; cm10 16:45 BP 93 / 56; Pulse 81; Resp 20; Pulse Ox 95% on R/A; cm10 17:15 BP 87 / 57; Pulse 76; Resp 17; Pulse Ox 95% on R/A; me1 19:05 BP 102 / 60; Pulse 72; Resp 17; Pulse Ox 95% on R/A; cm10 19:30 BP 100 / 56; Pulse 73; Resp 17; cm10 20:00 BP 95 / 60; Pulse 72; Resp 20; Pulse Ox 96% on R/A; cm10 20:30 BP 107 / 64; Pulse 75; Resp 20; Pulse Ox 93% on R/A; cm10 16:33 Body Mass Index 40.13 (87.09 kg, 147.32 cm) cm10 ED Course: 15:58 Patient arrived in ED. cm10 16:32 Triage completed. cm10 16:33 Arm band placed on Patient placed in an exam room, on a stretcher. cm10 16:38 Brad Mcnulty PA is PHCP. cp 16:38 Brad Villegas MD is Attending Physician. cp 16:56 Eddleman, Mikaela, RN is Primary Nurse. me1 16:57 Basic Metabolic Panel Sent. me1 16:57 CBC with Diff Sent. me1 16:57 Troponin HS Sent. me1 16:58 Patient has correct armband on for positive identification. Placed in gown. Bed in low me1 position. Call light in reach. Side rails up X2. Adult w/ patient. Provided Education on: POC. Daughter verbalized understanding. . 16:58 No provider procedures requiring assistance completed. Maintain EMS IV. Good blood me1 return noted. Site clean \T\ dry. Gauge \T\ site: 18 gauge Left AC. 17:44 XRAY Chest (1 view) In Process Unspecified. EDMS 17:49 CT Head Brain wo Cont In Process Unspecified. EDMS 17:51 Abdomen In Process Unspecified. EDMS 18:15 Lactate w/ 2H reflex if indic. Sent. me1 18:16 Urine Culture Sent. me1 18:44 Blood Culture Adult (2) Sent. me1 18:44 Lactate w/ 2H reflex if indic. Sent. me1 18:59 Amber Douglas FNP is Hospitalizing Provider. cp 20:55 Patient admitted, IV remains in place. me1 Administered Medications: 18:26 Drug: NS 0.9% IV 1000 ml Route: IV; Rate: 1 bolus; Site: left antecubital; me1 18:36 Follow up: IV Status: Completed infusion; IV Intake: 1000ml me1 19:28 Drug: Rocephin IV 1 grams Route: IV; Rate: calculated rate; Site: left forearm; cm10 20:03 Follow up: IV Status: Completed infusion; IV Intake: 100ml cm10 19:34 CANCELLED (Physician Discretion): NS 0.9% IV (30 ml/kg) 30 ml/kg IV at bolus once; cp Sepsis Protocol 20:03 Drug: Zithromax IVPB 500 mg Route: IVPB; Infused Over: 1 hrs; Site: left antecubital; cm10 20:03 Drug: NS 0.9% IV (30 ml/kg) 30 ml/kg Route: IV; Rate: bolus; Site: left antecubital; cm10 Medication: 16:58 VIS not applicable for this client. me1 Intake: 18:36 IV: 1000ml; Total: 1000ml. me1 20:03 IV: 100ml; Total: 1100ml. cm10 Outcome: 19:00 Decision to Hospitalize by Provider. cp 20:54 Admitted to Med/surg accompanied by tech, room 204, Report called to MARCIE Rodriguez me1 20:55 Condition: stable me1 20:55 Instructed on the need for admit. 21:17 Patient left the ED. cm10 Signatures: Dispatcher [employer] EDBrad Kitchen PA PA cp Martinez, Clarissa, RN RN 10 Mikaela Brian RN RN me1
--- NOTE | 2023-07-24 19:00 | EDPHYS ---
Physician Documentation [facility] Name: Carlota Wilkins Age: 78 yrs Sex: Female : 1945 Arrival Date: 07/24/2023 Time: 15:57 Bed 18 Private MD: ED Physician Brad Villegas HPI: 07/24 16:45 This 78 yrs old Female presents to ER via EMS with complaints of Altered cp Mental Status. 16:45 The patient presents with "lethargic". Onset: The symptoms/episode began/occurred cp yesterday, and became worse today. Possible causes: unknown. Associated signs and symptoms: Pertinent positives: weakness, syncopal episode while on toilet with 2 episodes of incontinence, Pertinent negatives: abdominal pain, chest pain, diarrhea, headache, vomiting. Current symptoms: In the emergency department the patient's symptoms are unchanged from the initial presentation, despite EMS interventions. Patient's baseline: Neuro: alert but confused, Motor: no deficits, Ambulation: walks without assistance, Speech: normal. Historical: - Allergies: 16:32 No Known Allergies; cm10 - PMHx: 16:32 Dementia; Diabetes mellitus; Hypertensive disorder; Hypothyroidism; Diverticulitis; cm10 - Immunization history:: Adult Immunizations unknown. - Social history:: Smoking status: Patient denies any tobacco usage or history of. ROS: 16:50 Constitutional: Negative for fever, poor PO intake. cp 16:50 Eyes: Negative for injury, pain, redness, and discharge. cp 16:50 ENT: Negative for drainage from ear(s), ear pain, sore throat, difficulty swallowing, difficulty handling secretions. 16:50 Neck: Negative for pain with movement, pain at rest, stiffness. 16:50 Cardiovascular: Negative for chest pain, edema, palpitations. 16:50 Respiratory: Negative for cough, wheezing. 16:50 Abdomen/GI: Positive for bowel incontinence, Negative for abdominal pain, vomiting, diarrhea, constipation. 16:50 : Negative for hematuria, flank pain, burning with urination. 16:50 Neuro: Positive for altered mental status, syncope, Negative for headache, loss of consciousness, weakness. 16:50 All other systems are negative. Exam: 16:55 Constitutional: The patient appears in no acute distress, alert, awake, cp non-diaphoretic, non-toxic, well developed, well nourished. 16:55 Constitutional: This is a well developed, well nourished patient who is awake, alert, cp and in no acute distress. Head/Face: Normocephalic, atraumatic. 16:55 Eyes: Periorbital structures: appear normal, Pupils: equal, round, and reactive to light and accomodation, Extraocular movements: intact throughout, Conjunctiva: normal, no exudate, no injection, Sclera: no appreciated abnormality, Lids and lashes: appear normal, bilaterally. 16:55 ENT: External ear(s): are unremarkable, Ear canal(s): are normal, clear, TM's: Nose: is normal, Mouth: Lips: moist, Oral mucosa: pink and intact, moist, Posterior pharynx: is normal, airway is patent, no erythema, no exudate. 16:55 Neck: ROM/movement: is normal, is supple, without pain, no range of motions limitations, no meningismus. 16:55 Neck: External neck: is normal. 16:55 Chest/axilla: Inspection: normal. 16:55 Chest/axilla: Palpation: is normal, no crepitus, no tenderness. 16:55 Cardiovascular: Rate: normal, Edema: is not appreciated, JVD: is not appreciated. 16:55 Respiratory: the patient does not display signs of respiratory distress, Respirations: normal, no use of accessory muscles, no shallow respirations, labored breathing, is not present, Breath sounds: are clear throughout, no decreased breath sounds, no stridor, no wheezing. 16:55 Abdomen/GI: Inspection: abdomen appears normal, Bowel sounds: active, all quadrants, Palpation: soft, in all quadrants, nontender, in all quadrants. 16:55 Back: pain, is absent, ROM is normal, CVA tenderness, is absent. 16:55 Skin: cellulitis, is not appreciated, no rash present. 16:55 Neuro: Orientation: to person, situation, Mentation: able to follow commands, slow to respond, Motor: moves all fours, strength is normal, Sensation: no obvious gross deficits. 18:30 ECG was reviewed by the Attending Physician. cp Vital Signs: 16:26 BP 90 / 57; Pulse 83; Resp 18; Pulse Ox 96% ; cm10 16:33 Temp 99.4(O); Weight 87.09 kg; Height 4 ft. 10 in. ; cm10 16:45 BP 93 / 56; Pulse 81; Resp 20; Pulse Ox 95% on R/A; cm10 17:15 BP 87 / 57; Pulse 76; Resp 17; Pulse Ox 95% on R/A; me1 19:05 BP 102 / 60; Pulse 72; Resp 17; Pulse Ox 95% on R/A; cm10 19:30 BP 100 / 56; Pulse 73; Resp 17; cm10 20:00 BP 95 / 60; Pulse 72; Resp 20; Pulse Ox 96% on R/A; cm10 20:30 BP 107 / 64; Pulse 75; Resp 20; Pulse Ox 93% on R/A; cm10 16:33 Body Mass Index 40.13 (87.09 kg, 147.32 cm) cm10 MDM: 16:38 Patient medically screened. cp 19:00 Data reviewed: vital signs, nurses notes, lab test result(s), EKG, radiologic studies, cp plain films. 19:00 Consideration of Admission/Observation Patient was admitted/placed on observation. cp Management of patient was discussed with the following: Hospitalist: Amber Douglas NP will admit after discussion. I considered the following discharge prescriptions or medication management in the emergency department Medications were administered in the Emergency Department. See MAR. Historians other than the Patient: Daughter/Son: daughter provides HPI. Care significantly affected by the following chronic conditions: Diabetes, Hypertension. Counseling: I had a detailed discussion with the patient and/or guardian regarding the historical points, exam findings, and any diagnostic results supporting the discharge/admit diagnosis, the presence of at least one elevated blood pressure reading (>120/80) during this emergency department visit, lab results, radiology results, the need for further work-up and treatment in the hospital. 07/24 16:34 Order name: Basic Metabolic Panel; Complete Time: 18:43 cm10 07/24 18:43 Interpretation: Normal except: NA 134; CO2 20; GLUC 187; BUN 35; CRE 1.84; GFR 28; CA cp 8.2. 07/24 16:34 Order name: CBC with Diff; Complete Time: 19:53 cm10 07/24 17:04 Interpretation: Normal except: WBC 14.50; PLT 97; BRANDON% 89.2; LYM% 3.3; NEUT A 12.9; cp LYMA 0.5. 07/24 16:34 Order name: Troponin HS; Complete Time: 18:43 cm10 07/24 18:43 Interpretation: Abnormal: Troponin HS 72.9. cp 07/24 16:34 Order name: Urine W/Microscopic (UAM); Complete Time: 17:03 cm10 07/24 18:44 Interpretation: Normal except: [facility] Extremely Turbid; UBLD 2+; UPROT 2+; UESTR 500; cp UWBC >50; URBC 5-10; UBACT 20-50; UWBC Clump Occasional. 07/24 16:57 Order name: Urine Culture EDMS 07/24 17:05 Order name: Lactate w/ 2H reflex if indic.; Complete Time: 19:32 cp 07/24 19:32 Interpretation: Reviewed. 07/24 17:05 Order name: Blood Culture Adult (2) cp 07/24 19:43 Order name: Manual Differential; Complete Time: 19:53 EDMS 07/24 19:54 Interpretation: Abnormal: BANDS [F] 21; LYM 1. cp 07/24 19:43 Order name: CBC Smear Scan; Complete Time: 19:53 EDMS 07/24 20:10 Order name: Lactate w/ 2H reflex if indic. EDMS 07/24 20:10 Order name: Urinalysis w/ reflexes EDMS 07/24 20:10 Order name: Basic Metabolic Panel EDMS 07/24 20:10 Order name: Basic Metabolic Panel EDMS 07/24 20:10 Order name: Basic Metabolic Panel EDMS 07/24 20:10 Order name: Basic Metabolic Panel EDMS 07/24 20:10 Order name: CBC with Automated Diff EDMS 07/24 20:10 Order name: CBC with Automated Diff EDMS 07/24 20:10 Order name: CBC with Automated Diff EDMS 07/24 20:10 Order name: CBC with Automated Diff EDMS 07/24 20:10 Order name: Magnesium EDMS 07/24 20:10 Order name: Magnesium EDMS 07/24 20:10 Order name: Magnesium EDMS 07/24 20:10 Order name: Magnesium EDMS 07/24 20:10 Order name: NT PRO-BNP EDMS 07/24 20:10 Order name: NT PRO-BNP EDMS 07/24 20:10 Order name: Troponin High Sensitivity EDUT 07/24 20:10 Order name: Troponin High Sensitivity EDMS 07/24 20:10 Order name: Troponin High Sensitivity EDMS 07/24 16:34 Order name: XRAY Chest (1 view); Complete Time: 18:43 cm10 07/24 18:44 Interpretation: Report review. 07/24 17:05 Order name: CT Head Brain wo Cont; Complete Time: 18:43 07/24 18:44 Interpretation: Report reviewed. 07/24 17:45 Order name: Abdomen ; Complete Time: 18:43 EDMS 07/24 16:34 Order name: EKG; Complete Time: 16:35 cm10 07/24 20:10 Order name: Clear Liquid EDUT 07/24 16:34 Order name: Cardiac monitoring; Complete Time: 16:57 cm10 07/24 16:34 Order name: EKG - Nurse/Tech; Complete Time: 18:26 cm10 07/24 16:34 Order name: IV Saline Lock; Complete Time: 16:57 cm10 07/24 16:34 Order name: Labs collected and sent; Complete Time: 16:57 cm10 07/24 16:34 Order name: O2 Per Protocol; Complete Time: 16:57 cm10 07/24 16:34 Order name: O2 Sat Monitoring; Complete Time: 16:57 cm10 EC:30 Rate is 72 beats/min. Rhythm is regular. [place] interval is prolonged. QRS interval is cp normal. QT interval is normal. T waves are Inverted in leads aVR, V2. Interpreted by me. Reviewed by me. Administered Medications: 18:26 Drug: NS 0.9% IV 1000 ml Route: IV; Rate: 1 bolus; Site: left antecubital; me1 18:36 Follow up: IV Status: Completed infusion; IV Intake: 1000ml me1 19:28 Drug: Rocephin IV 1 grams Route: IV; Rate: calculated rate; Site: left forearm; cm10 20:03 Follow up: IV Status: Completed infusion; IV Intake: 100ml cm10 19:34 CANCELLED (Physician Discretion): NS 0.9% IV (30 ml/kg) 30 ml/kg IV at bolus once; Sepsis Protocol 20:03 Drug: Zithromax IVPB 500 mg Route: IVPB; Infused Over: 1 hrs; Site: left antecubital; cm10 20:03 Drug: NS 0.9% IV (30 ml/kg) 30 ml/kg Route: IV; Rate: bolus; Site: left antecubital; cm10 Disposition Summary: 07/24/23 19:00 Hospitalization Ordered Hospitalization Status: Inpatient Admission cp Provider: Amber Douglas cp Location: Telemetry/MedSurg (Inpatient) cp Condition: Stable cp Problem: new cp Symptoms: have improved cp Bed/Room Type: Standard cp Room Assignment: 204(07/24/23 20:11) as6 Diagnosis - Pyelonephritis acute cp - Altered mental status, unspecified cp - Severe sepsis without septic shock cp Forms: - Medication Reconciliation Form cp - SBAR form cp - Leadership Thank You Letter cp Signatures: Dispatcher [employer] EDMS Brad Mcnulty PA PA cp Victor Manuel Joseph RN RN as6 Ioana Rodriguez RN RN cm10 Mikaela Brian RN RN me1 Corrections: (The following items were deleted from the chart) 17:45 17:25 Abdomen Pelvis W Con+CT.RAD.BRZ ordered. EDMS EDMS 19:34 19:33 NS 0.9% IV (30 ml/kg) 30 ml/kg IV at bolus once; Sepsis Protocol ordered. cp cp 20:11 19:00 cp as6 07/25 20:41 20:28 This 78 yrs old Female presents to ER via EMS with complaints of Altered cp Mental Status. cp 20:41 20:37 The patient presents with "lethargic", cp cp 20:41 20:37 Onset: The symptoms/episode began/occurred yesterday, and became worse today, cp cp 20:41 20:37 Possible causes: unknown, cp cp 20:41 20:37 Associated signs and symptoms: Pertinent positives: weakness, syncopal episode cp while on toilet with 2 episodes of incontinence, Pertinent negatives: abdominal pain, chest pain, diarrhea, headache, vomiting, cp 20:41 20:37 Current symptoms: In the emergency department the patient's symptoms are cp unchanged from the initial presentation, despite EMS interventions, cp 20:41 20:37 Patient's baseline: Neuro: alert but confused, Motor: no deficits, Ambulation: cp walks without assistance, Speech: normal, cp
[2023-07-24] MEDS ORDERED: CEFTRIAXONE 1000 MG/VIAL ONE (19:27)
[2023-07-24] MEDS ORDERED: NA CHLORIDE 0.9% 50 ML ONE (19:28)
[2023-07-24] MEDS ORDERED: AZITHROMYCIN 500 MG INJ IVPB ONE (19:29)
[2023-07-24] MEDS ORDERED: NA CHLORIDE 0.9% 250 ML ONE (19:29)
[2023-07-24 19:42] LABS: White Blood Cell Scan DIFF (OK)
[2023-07-24 19:43] LABS: Blood Morphology Comment NOT SEEN (NOT SEEN); Platelet Estimate DECR
--- NOTE | 2023-07-24 19:52 | P.HP ---
Certification for Inpatient Patient admitted to: Inpatient With expected LOS: <2 Midnights Patient will require the following post-hospital care: None Practitioner: I am a practitioner with admitting privileges, knowledge of patient current condition, hospital course, and medical plan of care. Services: Services provided to patient in accordance with Admission requirements found in Title 42 Section 412.3 of the Code of Federal Regulations Patient History Date of Service: 07/25/23 Reason for admission: Confusion History of Present Illness: 78-year-old [place]-speaking female with a past medical history of hypertension, diabetes, hypothyroidism, diverticulitis, dementia, hypothyroidism, fatty liver COPD, recently stopped smoking, presents to the emergency room [place] for confusion. Daughter is primary historian reports patient has been confused and weak today. Reports she was unable to get off of the commode. Report that she was more confused today, she was alert and oriented x2. No reported fever, chest pain, nausea vomiting diarrhea, edema dizziness. No history of [place] or stroke. No history of kidney disease. Daughter reports patient saw PCP 2 weeks ago was told she was prediabetic, all other labs were normal. Plan to admit for pyelonephritis, metabolic encephalopathy, elevated troponin, Lab evaluation elevated troponin 72.9, elevated lactic 2.6, hyponatremia 134, WBCs leukocytosis WBCs 14.50, left shift 89.2, UA pyelonephritis, leukoesterase 500, nitrite negative, ER course, sepsis bolus given, Zithromax, Rocephin blood cultures, lactic ordered, urine cultures evaluation P 90 / 57; Pulse 83; Resp 18; Pulse Ox 96% ; 16:33 Temp 99.4(O); Weight 87.09 kg; Height 4 ft. EKG normal sinus rhythm 72, CT of the abdomen pelvis Nonspecific right perinephric and periureteric fat stranding. This could relate to recently passed stone or ongoing pyelonephritis. Please correlate clinically, and with urinalysis results. No other acute intra-abdominal process. Diffuse hepatic parenchymal hypoattenuation suggesting steatosis. CT of the head IMPRESSION: No evidence of an acute intracranial process. Chest x-ray IMPRESSION: Central opacities as above, suggestive of central congestion. Superimposed pneumonia would be difficult to exclude Allergies No Known Allergies Allergy (Unverified 07/24/23 20:11) Home Medications: Cholecalciferol (Vitamin D3) [Vitamin D 1000 Iu Tab] 1,000 unit PO DAILY 07/24/23 Cholestyramine (with Sugar) [Cholestyramine Packet] 4 gm PO BID 07/24/23 Donepezil HCl [Aricept] 10 mg PO 169907/24/23 Escitalopram Oxalate [Lexapro] 10 mg PO 169907/24/23 Levothyroxine Sodium [Synthroid] 150 mcg PO 0600 07/24/23 Memantine HCl [Namenda] 10 mg PO BID 07/24/23 Metoprolol Succinate 100 mg PO 169907/24/23 Multivitamin 1 each PO DAILY 07/24/23 Omeprazole [Prilosec] 40 mg PO DAILY 07/24/23 Pravastatin Sodium 20 mg PO 169907/24/23 lisinopriL [Lisinopril] 40 mg PO 169907/24/23 ursodioL [Ursodiol] 300 mg PO BID 07/24/23 Review of Systems 10-point ROS is otherwise unremarkable Physical Examination - Physical Exam General: Alert, In no apparent distress, Oriented x2, Obese, Other (confused, tamazight speaking only) HEENT: Atraumatic, Normocephalic, PERRLA, Mucous membr. moist/pink Neck: Supple, 2+ carotid pulse no bruit, JVD not distended Cardiovascular: No edema, Normal pulses, Regular rate/rhythm Gastrointestinal: Normal bowel sounds, Soft and benign Musculoskeletal: No clubbing, No swelling Integumentary: No rashes, No breakdown Neurological: Normal speech, Normal strength at 5/5 x4 extr, Sensation intact, Cranial nerves 3-12 intact - Studies Laboratory Data (last 24 hrs) 07/24/23 07/24/23 16:30 16:30 WBC 14.50 H Hgb 12.7 Hct 38.3 Plt Count 97 L Sodium 134 L Potassium 3.9 BUN 35 H Creatinine 1.84 H Glucose 187 H Assessment and Plan - Plan Assessment plan Pyelonephritis Metabolic encephalopathy secondary to pyelonephritis acute heart failure unknown baseline Elevated troponin Acute kidney injury Essential hypertension Hyperlipidemia COPD Diabetes uncontrolled Hypothyroidism Dementia Fatty liver DVT prophylaxis heparin Assessment plan Pyelonephritis Metabolic encephalopathy secondary to pyelonephritis Nephrology consulted Dr. Angulo notified, IV fluids, IV antibiotics, Urine cultures, blood cultures elevated lactic 2.6 sepsis bolus given, Zithromax, Rocephin blood cultures, lactic ordered, urine cultures WBCs leukocytosis WBCs 14.50, left shift 89.2, UA pyelonephritis, leukoesterase 500, nitrite negative, ER course, sepsis bolus given, Zithromax, Rocephin blood cultures, lactic ordered, urine cultures Extremely Turbid; UBLD 2+; UPROT 2+; UESTR 500; UWBC >50; URBC 5-10; UBACT 20- 50; UWBC Clump CT of the abdomen pelvis Nonspecific right perinephric and periureteric fat stranding. This could relate to recently passed stone or ongoing pyelonephritis. Please correlate clinically, and with urinalysis results. No other acute intra-abdominal process. Diffuse hepatic parenchymal hypoattenuation suggesting steatosis. CT of the head IMPRESSION: No evidence of an acute intracranial process. Chest x-ray IMPRESSION: Central opacities as above, suggestive of central congestion. Superimposed pneumonia would be difficult to exclude EKG normal sinus rhythm 72, acute heart failure unknown baseline. cardiology consult 72 beats/min. Rhythm is regular. SC interval is prolonged. QRS interval is n ormal. QT interval is normal. T waves are Inverted in leads aVR, V2 BNP 2116 acute heart failure unknown baseline. Elevated troponin No chest pain, trend troponins, troponin 72.9, EKG normal sinus rhythm 72, Acute kidney injury hyponatremia 134, IV fluids, nephrology consulted Essential hypertension Hyperlipidemia Hypothyroidism Dementia Fatty liver Resume appropriate home medications Educated on exercise walking 30 minutes daily, 10-minute increments Daughter reports patient is very and sedentary she refuses to ambulate Fatty liver Diabetes uncontrolled A1c in the a.m. Accu-Cheks, sliding scale insulin DVT prophylaxis heparin Diabetic diet Full code Discharge Plan: Home Plan to discharge in: 48 Hours - Advance Directives Does patient have a Living Will: No Does patient have a Durable POA for Healthcare: No - Code Status/Comfort Care Code Status: Full Code Physician Review: Patient Assessed, Agree with Above Assessment and Plan Critical Care: No Time Spent Managing Pts Care (In Minutes): 50
[2023-07-24] MEDS ORDERED: NA CHLORIDE 0.9% 2,000 ML ONE (20:05)
[2023-07-24] MEDS ORDERED: ONDANSETRON 4 MG/2 ML VIAL IV PRN (20:07)
[2023-07-24] MEDS: HEPARIN 5000 UNIT/ML 1 ML VIAL SQ SCH (20:07)
[2023-07-24] MEDS ORDERED: NA CHLORIDE 0.9% 1,000 ML IV SCH (21:00)
[2023-07-24 21:29] VITALS: BMI 40.7
[2023-07-25] MEDS: HEPARIN 5000 UNIT/ML 1 ML VIAL SQ SCH ×3 (00:06→16:49)
[2023-07-25] MEDS: ACETAMINOPHEN 325 MG TABLET PO PRN ×3 (00:20→22:48)
[2023-07-25] MEDS ORDERED: D50W 25 GM/50 ML SYRINGE IV PRN (01:17)
[2023-07-25] MEDS ORDERED: GLUCAGON 1 MG/VIAL IM PRN (01:17)
[2023-07-25] MEDS: NA CHLORIDE 0.9% 1,000 ML IV SCH ×2 (01:56→16:59)
[2023-07-25] MEDS: FUROSEMIDE 40 MG/4 ML VIAL IV SCH ×3 (02:11→16:48)
[2023-07-25 04:27] LABS: Magnesium 1.7 mg/dL (1.6-2.4); Potassium 3.2 mEq/L (3.5-5.1)
[2023-07-25 04:56] LABS: Absolute Lymphocytes (CBC) 0.5 K/uL (0.7-4.9); Hematocrit 34.3 % (36.0-45.0); Lymphocytes % 3.2 % (15.3-44.8); MCV 96.2 fL (80-100); MPV 11.4 fL (7.6-11.3); Platelets 67 thou/uL (152-406); RBC Red Blood Cell Count 3.57 M/uL (3.86-4.86)
[2023-07-25] MEDS ORDERED: MAGNESIUM SULFATE 1 gm IVPB 1 GM/100 ML BAG IV ONE (05:42)
[2023-07-25] MEDS: INSULIN -REGULAR HUMAN 50 UNIT/0.5 ML ML SQ SCH ×4 (08:43→21:00)
[2023-07-25] MEDS ORDERED: POTASSIUM CL SA 10 MEQ TAB PO ONE ×2 (09:00→22:55)
[2023-07-25] MEDS ORDERED: CEFTRIAXONE 1,000 MG in NA CHLORIDE 0.9% 50 ML IVPB SCH (09:00)
[2023-07-25] MEDS ORDERED: CIPROFLOXACIN 400mg IV 400 MG/200 ML BAG IV SCH (09:00)
--- NOTE | 2023-07-25 09:16 | P.CNS ---
Date of Consult: 07/25/23 Reason for Consult: [facility] Requesting Physician: sana brock Chief Complaint: Confusion History of Present Illness: 78-year-old English-speaking female with a past medical history of hypertension, diabetes, hypothyroidism, diverticulitis, dementia, hypothyroidism, fatty liver COPD, recently stopped smoking, presents to the emergency room [place] for confusion. Daughter is primary historian reports patient has been confused and weak today. Reports she was unable to get off of the commode. Report that she was more confused today, she was alert and oriented x2. No reported fever, chest pain, nausea vomiting diarrhea, edema dizziness. No history of [place] or stroke. No history of kidney disease. Daughter reports patient saw PCP 2 weeks ago was told she was prediabetic, all other labs were normal. Plan to admit for pyelonephritis, metabolic encephalopathy, elevated troponin. Denies NSAIDs. Denies bladder difficulties. Allergies No Known Allergies Allergy (Unverified 07/24/23 20:11) Home medications list reviewed: Yes Home Medications: Cholecalciferol (Vitamin D3) [Vitamin D 1000 Iu Tab] 1,000 unit PO DAILY 07/24/23 Cholestyramine (with Sugar) [Cholestyramine Packet] 4 gm PO BID 07/24/23 Donepezil HCl [Aricept] 10 mg PO 1700 07/24/23 Escitalopram Oxalate [Lexapro] 10 mg PO 1700 07/24/23 Levothyroxine Sodium [Synthroid] 150 mcg PO 0600 07/24/23 Memantine HCl [Namenda] 10 mg PO BID 07/24/23 Metoprolol Succinate 100 mg PO 1700 07/24/23 Multivitamin 1 each PO DAILY 07/24/23 Omeprazole [Prilosec] 40 mg PO DAILY 07/24/23 Pravastatin Sodium 20 mg PO 1700 07/24/23 lisinopriL [Lisinopril] 40 mg PO 1700 07/24/23 ursodioL [Ursodiol] 300 mg PO BID 07/24/23 - Past Medical/Surgical History Diabetic: No -: hypothyroid -: pre diabetic -: HTN -: dementia -: diverticulitis -: CKD/ Proteinuria (Dr. Angulo/ Dr. Ambrocio) -: pancreatis -: recent "stone' - Social History Place of Residence: Home Review of Systems 10-point ROS is otherwise unremarkable General: Weakness, Malaise Physical Examination Temp Pulse Resp BP Pulse Ox 97.5 F 70 20 102/53 L 93 07/25/23 04:00 07/25/23 08:44 07/25/23 04:00 07/25/23 08:44 07/25/23 04:00 General: In no apparent distress, Oriented x3, Cooperative HEENT: Atraumatic Neck: Supple Respiratory: Clear to auscultation bilaterally Cardiovascular: No edema, Regular rate/rhythm Gastrointestinal: Soft and benign, Non-distended Musculoskeletal: No clubbing, No contractures Integumentary: No rashes, No cyanosis Neurological: Normal speech Laboratory Data (last 24 hrs) 07/24/23 07/24/23 16:30 16:30 WBC 14.50 H Hgb 12.7 Hct 38.3 Plt Count 97 L Sodium 134 L Potassium 3.9 BUN 35 H Creatinine 1.84 H Glucose 187 H Imagings Data: EXAM DESCRIPTION: CT - Abdomen Pelvis Wo Contrast - 07/24/2023 5:49 pm CLINICAL HISTORY: diarrhea COMPARISON: Head Brain Wo Cont dated 07/24/2023 TECHNIQUE: Thin cut axial CT imaging of the abdomen and pelvis was performed without IV contrast. Multiplanar reformats were generated and reviewed. All CT scans are performed using dose optimization technique as appropriate and may include automated exposure control or mA/KV adjustment according to patient size. FINDINGS: No suspicious findings in the lung bases. The liver is mildly enlarged, showing diffuse hepatic parenchymal hypoattenuation suggesting steatosis. Adrenal glands, spleen, and pancreas show no suspicious findings. Gallbladder and biliary tree are also without suspicious finding. Symmetric renal contour, without suspicious parenchymal findings within limits of noncontrast technique. No evidence of radiopaque calculi or hydroureteronephrosis. Right perinephric and periureteric fat stranding. No dilated bowel loops or bowel wall thickening. Colonic diverticulosis. No free air, free fluid or inflammatory stranding. No hernia, mass or bulky lymphadenopathy. The urinary bladder is suboptimally distended limiting evaluation. No suspicious bony findings. IMPRESSION: Nonspecific right perinephric and periureteric fat stranding. This could relate to recently passed stone or ongoing pyelonephritis. Please correlate clinically, and with urinalysis results. No other acute intra-abdominal process. Diffuse hepatic parenchymal hypoattenuation suggesting steatosis. EXAM DESCRIPTION: RADChest Single View07/24/2023 5:42 pm CLINICAL HISTORY: Syncope COMPARISON: Chest Pa And Lat (2 Views) dated 11/10/2018 TECHNIQUE: Portable AP view of the chest. FINDINGS: Central interstitial prominence and perihilar and left basilar patchy opacities. No pneumothorax or effusion. The cardiomediastinal contours are unremarkable. IMPRESSION: Central opacities as above, suggestive of central congestion. Sup erimposed pneumonia would be difficult to exclude. Conclusions/Impression: Stage I TRINITY in the setting of hypotension CKD III with Proteinuria -No NSAIDs Hyponatremia -Continue Lasix Hypokalemia -Replete as ordered NAG Metabolic Acidosis -Continue Lasix PreDM -No sugar diet Anemia in chronic illness -Monitor H&H Hospitalist note reviewed Thank you kindly for the consultation
[2023-07-25] MEDS: ALBUTEROL 2.5 MG/3 ML NEB SOL NEB SCH ×3 (10:08→20:00)
[2023-07-25] MEDS: IPRATROPIUM BROM 0.5MG/2.5ML NEB SCH ×3 (10:09→20:00)
[2023-07-25] MEDS ORDERED: D10W 125 ML IV PRN (10:36)
--- NOTE | 2023-07-25 12:14 | EKG ---
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
--- NOTE | 2023-07-25 13:46 | CON ---
Date of Consultation: 07/25/2023 Reason For Consultation: Elevated troponin. History Of Present Illness: A 78-year-old female, history of hypertension, diabetes, dementia, hypot hyroidism, COPD, ex-smoker, stopped smoking recently, presented to the emergency room with altered me ntal condition and confusion. Blood pressure was slightly low, responded to fluids. She feels sligh tly dizzy. Denied having any chest pain, but troponins are slightly elevated. Denies history of car diac disease. Past Medical History: As outlined above in the HPI. Medications: Refer to reconciliation sheet for detailed list. Allergies: NO KNOWN DRUG ALLERGIES. Family History: No premature coronary artery disease or cancer. Social History: She is an ex-smoker, quit recently. Does not drink or use any drugs. Review of Systems: All systems reviewed and they were negative except what mentioned in HPI. Physical Examination: Vital Signs: Reviewed. Head and Neck: Pupils are equal, reactive to light. Intact eye movements. No cervical lymphadenopa thy. Neck is supple. Thyroid is not enlarged. Lungs: Decreased breathing sounds bilaterally with mild wheezing. Heart: Irregular. No extra sounds. Abdomen: Soft, nontender. Bowel sounds positive. No organomegaly. No masses or hernia. No rigidi ty or rebound. Extremities: Trace edema bilaterally. No clubbing or cyanosis. Intact pulses. Skin: No rash. Neurologic: Alert, awake, oriented x3. No acute focal deficits appreciated. Lymph Nodes: No cervical or axillary lymphadenopathy. Investigations: BUN 34, creatinine 1.6. Troponin 62 and then 103. Assessment And Recommendations: 1.Elevated troponin. No chest pain, but longstanding smoking history. Obtain a Lexiscan nuclear st ress test and an echo to further evaluate. 2.Elevated NT-proBNP, probably chronic heart failure. I will obtain an echo to further evaluate and recommendations to follow accordingly. 3.Acute renal failure. Creatinine is improving. I noted that the patient is on Lasix and IV fluids in the same time. I recommend to discontinue both and await to further evaluate based on the echo r esults as they could give a good idea about her filling pressures. SR/MODL Voice ID: [id number] Report ID: [id number]
--- NOTE | 2023-07-25 18:34 | P.PN ---
Subjective Date of Service: 07/25/23 Chief Complaint: Confusion Nursing staff report patient aspirated on water. She has been afebrile Patient noted to be wheezing audibly. Physical Examination - Vital Signs Temperature: 98.3 F Blood Pressure: 96/54 Pulse: 72 Respirations: 20 Pulse Ox (%): 96 - Studies Laboratory Data (last 24 hrs) 07/24/23 16:30 WBC 14.50 H Hgb 12.7 Hct 38.3 Plt Count 97 L Assessment And Plan - Plan Physical Exam General: Alert, In no apparent distress, Oriented x2, Obese. Neck: Supple, 2+ carotid pulse no bruit, JVD not distended. Respiratory: Diffuse wheezes, no crackles. Adequate breath sounds bilaterally. Cardiovascular: No edema, Normal pulses, Regular rate/rhythm Gastrointestinal: Normal bowel sounds, Soft and benign Musculoskeletal: No swelling Integumentary: No rashes, No breakdown Neurological: Normal speech, no focal motor deficit. Diagnosis Acute Pyelonephritis Metabolic encephalopathy Elevated troponin Acute kidney injury Essential hypertension Hyperlipidemia COPD Diabetes type II Hypothyroidism Dementia Fatty liver Plan Pyelonephritis Metabolic encephalopathy secondary to pyelonephritis Chronic IV fluids, IV antibiotics, Follow urine cultures, blood cultures elevated lactic 2.6 IV Rocephin. NSTEMI No chest pain. Troponins relatively flat. Acute kidney injury hyponatremia 134, IV fluids, nephrology is following. Monitor renal function. Essential hypertension Hyperlipidemia Hypothyroidism Dementia Fatty liver Continue home medications Diabetes uncontrolled Accu-Cheks, sliding scale insulin DVT prophylaxis: heparin SQ. Diabetic diet Full code
[2023-07-25] MEDS: POTASSIUM 25 MEQ EFFERV TAB PO ONE ×2 (22:34→22:49)
[2023-07-26] MEDS: HEPARIN 5000 UNIT/ML 1 ML VIAL SQ SCH (01:00)
[2023-07-26] MEDS: ALBUTEROL 2.5 MG/3 ML NEB SOL NEB SCH ×4 (01:54→19:50)
[2023-07-26] MEDS: IPRATROPIUM BROM 0.5MG/2.5ML NEB SCH ×4 (01:54→19:50)
[2023-07-26 04:23] LABS: Absolute Lymphocytes (CBC) 1.2 K/uL (0.7-4.9); Hematocrit 32.7 % (36.0-45.0); Lymphocytes % 8.5 % (15.3-44.8); MCV 95.4 fL (80-100); MPV 10.9 fL (7.6-11.3); RBC Red Blood Cell Count 3.43 M/uL (3.86-4.86)
[2023-07-26 04:26] LABS: Platelets 72 thou/uL (152-406)
[2023-07-26 04:41] LABS: Magnesium 2.1 mg/dL (1.6-2.4); Potassium 3.7 mEq/L (3.5-5.1)
[2023-07-26] MEDS: ACETAMINOPHEN 325 MG TABLET PO PRN ×2 (06:17→15:59)
--- NOTE | 2023-07-26 06:39 | ECHO ---
HEIGHT: 4 ft 10 in WEIGHT: 192 lb 0 oz DATE OF STUDY: 07/25/[address]: Rafiq Dsouza 2-DIMENSIONAL: YES M.MODE: YES DOPPLER: YES COLOR FLOW: YES TDS: PORTABLE: YES DEFINITY: BUBBLE STUDY: DIAGNOSIS: ELEVATED TROPONIN CARDIAC HISTORY: CATHERIZATION: NO SURGERY: NO PROSTHETIC VALVE: NO PACEMAKER: NO MEASUREMENTS (cm) DIASTOLIC (NORMALS) SYSTOLIC (NORMALS) IVSd 1.0 (0.6-1.2) LA Diam 3.9 (1.9-4.0) LVEF 59% LVIDd 4.8 (3.5-5.7) LVIDs 3.3 (2.0-3.5) %FS 31% LVPWd 1.1 (0.6-1.2) Ao Diam 2.3 (2.0-3.7) 2 DIMENSIONAL ASSESSMENT: RIGHT ATRIUM: NORMAL LEFT ATRIUM: NORMAL RIGHT VENTRICLE: NORMAL LEFT VENTRICLE: NORMAL TRICUSPID VALVE: MILD TRICUSPID REGURGITATION MITRAL VALVE: NORMAL PULMONIC VALVE: NORMAL AORTIC VALVE: NORMAL PERICARDIAL EFFUSION: NONE AORTIC ROOT: NORMAL LEFT VENTRICULAR WALL MOTION: NORMAL DOPPLER/COLOR FLOW: MILD TRICUSPID REGURGITATION COMMENTS: 1. NORMAL LEFT VENTRICULAR EJECTION FRACTION 55-60% WITH NORMAL WALL MOTION 2. GRADE I DIASTOLIC DYSFUNCTION 3. MILD TRICUSPID REGURGITATION TECHNOLOGIST: BASILIO NOEL
--- NOTE | 2023-07-26 06:49 | P.PN ---
Date of Service: 07/26/23 Subjective: Feeling better today wheeze continues ~unchanged over last 24-36hrs no new / worsening problems afebrile ROS: 10 point ROS as noted above, otherwise negative Physical Exam: GEN: Alert, orientedx2 HEENT: Normal conjunctiva, sclera anicteric CV: Regular rate and rhythm, no edema Pulm: Nonlabored respirations on room air, +expiratory wheeze ABD: Soft, nontender, nondistended Neuro: Normal speech, normal affect vitals reviewed Problem List: sepsis secondaryt to Acute Pyelonephritis with GNR bacteremia Metabolic encephalopathy NSTEMI TRINITY COPD Hypertension Hyperlipidemia NIDDM2 Hypothyroidism Dementia Fatty Liver Plan sepsis secondaryt to Acute Pyelonephritis with GNR bacteremia Metabolic encephalopathy secondary to pyelonephritis Gram negative Bacteremia CT head (07/24): No evidence of an acute intracranial process. urine cx: E. coli blood cx: +GNR growing in 4/4 bottles ID consult Continue IV Rocephin (07/25-) afebrile, +leukocytosis PT consult NSTEMI No chest pain. troponins mildly elevated monitor on telemetry echo ordered Cardiology consulted Stress test was negative 07/26 Continue IV lasix TRINITY hyponatremia Nephrology consulted Monitor renal function Continue IV lasix improving COPD, chronic CXR (07/24):Central opacities, suggestive of central congestion. CXR (07/26): ordered PRN nebs on room air Continue home medications NIDDM2 Accu-Cheks, SSI Hypertension Hyperlipidemia Hypothyroidism Dementia Fatty Liver Continue home medications VTE: Heparin on hold Code: Full Dispo: Home; ~2 days Pending culture results, further improvement
[2023-07-26] MEDS ORDERED: REGADENOSON 0.4 MG/5 ML SYR IV ONE (07:29)
[2023-07-26] MEDS: INSULIN -REGULAR HUMAN 50 UNIT/0.5 ML ML SQ SCH ×4 (07:30→21:31)
--- NOTE | 2023-07-26 08:38 | P.CNS ---
Date of Consult: 07/26/23 Reason for Consult: pyelonephritis, bacteremia Chief Complaint: Confusion History of Present Illness: Patient is a 78-year-old female with a past medical history of diabetes, hypertension, hypothyroidism, diverticulitis, dementia, COPD who presented to the emergency department with complaints of confusion and generalized weakness. ED work-up revealing elevated troponin, elevated lactic acid, leukocytosis and urinalysis suggestive of urinary tract infection. Blood and urine cultures obtained in ED, patient was started on empiric Rocephin IV and infectious disease was consulted. Allergies No Known Allergies Allergy (Unverified 07/24/23 20:11) Home medications list reviewed: Yes Home Medications: Cholecalciferol (Vitamin D3) [Vitamin D 1000 Iu Tab] 1,000 unit PO DAILY 07/24/23 Cholestyramine (with Sugar) [Cholestyramine Packet] 4 gm PO BID 07/24/23 Donepezil HCl [Aricept] 10 mg PO 1700 07/24/23 Escitalopram Oxalate [Lexapro] [place] [address]/24/23 Levothyroxine Sodium [Synthroid] 150 mcg PO 0600 07/24/23 Memantine HCl [Namenda] 10 mg PO BID 07/24/23 Metoprolol Succinate 100 mg PO 1700 07/24/23 Multivitamin 1 each PO DAILY 07/24/23 Omeprazole [Prilosec] 40 mg PO DAILY 07/24/23 Pravastatin Sodium 20 mg PO 1700 07/24/23 lisinopriL [Lisinopril] 40 mg PO 1700 07/24/23 ursodioL [Ursodiol] 300 mg PO BID 07/24/23 - Past Medical/Surgical History Diabetic: No -: hypothyroid -: pre diabetic -: htn -: dementia -: diverticulitis -: pancreatis -: recent "stone' - Social History Place of Residence: Home Review of Systems Unremarkable Physical Examination Temp Pulse Resp BP Pulse Ox 98.0 F 74 15 106/56 L 95 07/26/23 04:00 07/26/23 04:00 07/26/23 04:00 07/26/23 04:00 07/26/23 04:00 General: Alert, In no apparent distress, Oriented x2 HEENT: Atraumatic, Normocephalic Neck: Supple, JVD not distended Respiratory: Normal air movement (on room air), Diminished Cardiovascular: No edema, Regular rate/rhythm Gastrointestinal: Normal bowel sounds, Soft and benign, No tenderness Musculoskeletal: No clubbing, No swelling Integumentary: No rashes Neurological: Normal speech, Normal affect Urinary: Other (PureWick with martinez colored urine) Laboratory data -Reviewed Microbiology data -Reviewed Imagings Data: Reviewed Conclusions/Impression: Problem list Gram-negative bacteremia Acute pyelonephritis Acute kidney injury Hypertension Hyperlipidemia Diabetes mellitus Hypothyroidism COPD Dementia Gram-negative bacteremia secondary to pyelonephritis -CT abdomen pelvis 07/24: "Nonspecific right perinephric and periureteral fat stranding. This could relate to recently passed stone or ongoing pyelonephritis. Please correlate clinically, and with urinalysis results." - Urine culture 07/24: Escherichia coli , [place] count >100,000 CFU/mL - Blood cultures 07/24: Gram negative rods in 4 of 4 bottles - On Rocephin (started 07/25) - Leukocytosis improving (WBC 16.9 -> 14.1). Afebrile. Acute kidney injury: Nephrology on case Elevated troponin: cardiology on case Recommendations -Bacteremia/pyelonephritis: Continue antibiotic therapy for 14 days -Currently on Rocephin IV (07/25-), continue for now - Follow up with final blood culture results -Monitor WBC and fever trends - Maintain adequate hydration and nutritional status Case discussed with Maria D Pringle
[2023-07-26] MEDS ORDERED: POTASSIUM CL SA 10 MEQ TAB PO ONE (09:00)
[2023-07-26] MEDS: CEFTRIAXONE 2,000 MG in NA CHLORIDE 0.9% 100 ML IV SCH (09:56)
[2023-07-26] MEDS: FUROSEMIDE 40 MG/4 ML VIAL IV SCH ×2 (09:56→16:37)
--- NOTE | 2023-07-26 10:32 | RAD REPORT ---
EXAM DESCRIPTION: NM - Rest Stress Cardiac Imaging - 07/26/2023 9:27 am CLINICAL HISTORY: Elevated troponin COMPARISON: None. TECHNIQUE: The patient was administered 10. mCi of Tc 99m Sestamibi prior to resting SPECT imaging o f the heart. The patient was then administered 31.8 MCi of Tc 99m Sestamibi following exercise or pha rmacologic stress. Multiplanar SPECT images were reviewed. FINDINGS: There is uniformity of radiotracer uptake involving the entire left ventricular myocardiu m on rest and stress images. The left ventricular ejection fraction equals 60% IMPRESSION: Negative for a myocardial perfusion defect
--- NOTE | 2023-07-26 13:48 | RAD REPORT ---
EXAM DESCRIPTION: RAD - Chest Single View - 07/26/2023 1:37 pm CLINICAL HISTORY: wheeze, ?CHF Chest pain. COMPARISON: Chest Single View dated 07/24/2023; Chest Pa And Lat (2 Views) dated 11/10/2018 FINDINGS: Portable technique limits examination quality. Patchy opacities in both lung bases appear similar to prior studies. This likely represents atelectas is. Small left pleural effusion. The heart is moderately enlarged.
--- NOTE | 2023-07-26 19:25 | PN ---
Date of Progress Note: 07/26/2023 Subjective: Seen by bedside. No chest pain. No shortness of breath, orthopnea, or cough. No nause a, vomiting, or diarrhea. She had a stress test today that was negative. All other systems were rev iewed, they were negative. Objective: Vital Signs: Reviewed. Head and Neck: Pupils are equal, reactive to light. Intact eye movements. No JVD. No cervical lym phadenopathy. Neck is supple. Thyroid is not enlarged. Lungs: Clear to auscultation bilaterally. No rhonchi, wheezing, or crackles. No accessory muscle u se. Heart: Regular rate and rhythm. No extra sounds. Abdomen: Soft, nontender. Bowel sounds positive. No organomegaly. No masses or hernia. No rigidit y or rebound. Extremities: No edema, clubbing, or cyanosis. Intact pulses. Skin: No rash. No nodule. Neurologic: Alert, awake, oriented x3. No acute focal deficits appreciated. Investigations: Creatinine today is 1.35, down from 1.85. Hemoglobin is 11.3 and troponin peaked at 103. Stress test, no evidence of stress-induced ischemia. Assessment And Recommendations: 1.Elevated troponin. This is demand ischemia with normal stress test. The patient was assured. 2.Elevated NT-proBNP, and on echo, patient has mild diastolic dysfunction. Normal ejection fraction . This is a chronic diastolic heart failure. Low-salt diet is recommended and blood pressure contro l. 3.Acute renal failure, improving nicely. Cardiology will sign off on the case and we will be happy to see her on an outpatient basis for her chronic diastolic heart failu re. /MODL Voice ID: [id number] Report ID: [id number]
--- NOTE | 2023-07-26 21:12 | P.PN ---
Date of Service: 07/26/23 Vital Signs Temp Pulse Resp BP Pulse Ox 98.1 F 75 16 131/64 95 07/26/23 16:00 07/26/23 16:37 07/26/23 16:00 07/26/23 16:37 07/26/23 16:00 Medications Acetaminophen (Acetaminophen 325 Mg Tablet) 650 mg PO Q4H PRN PRN Reason: Pain scale 2-4 (Mild) Last Admin: 07/26/23 15:59 Dose: 650 mg Albuterol Sulfate (Albuterol 2.5 Mg/3 Ml Neb R[place]) 2.5 mg NEB [id number] [facility] Last Admin: 07/26/23 19:50 Dose: 2.5 mg Furosemide (Furosemide 40 Mg/4 Ml Vial) 40 mg IV BIDL [facility] Last Admin: 07/26/23 16:37 Dose: 40 mg Glucagon (Glucagon 1 Mg/Vial) 1 mg IM 1X PRN; Protocol PRN Reason: HYPOGLYCEMIA Heparin Sodium (Porcine) (Heparin 5000 Unit/Ml 1 Ml Vial) 5,000 unit SQ Q8HR [facility] Last Admin: 07/26/23 01:00 Dose: Not Given Dextrose (Dextrose 10% Water Iv Soln.) 125 mls @ 0 mls/hr IV PRN PRN; Protocol PRN Reason: HYPOGLYCEMIA Ceftriaxone Sodium 2,000 mg/ (Sodium Chloride) 100 mls @ 200 mls/hr IV DAILY [facility]; Protocol Last Admin: 07/26/23 09:56 Dose: 100 mls Insulin Human Regular (Insulin -Regular Human 50 Unit/0.5 Ml Ml) 0 unit SQ ACHS [facility]; Protocol Last Admin: 07/26/23 16:11 Dose: Not Given Ipratropium [place] (Ipratropium Brom 0.5mg/2.5ml) 0.5 mg NEB [id number] [facility] Last Admin: 07/26/23 19:50 Dose: 0.5 mg Ondansetron HCl (Ondansetron 4 Mg/2 Ml Vial) 4 mg IV Q6HP PRN PRN Reason: NAUSEA / VOMITING Sodium Chloride (Flush Normal Saline 10 Ml) 10 ml IV BID [facility] Last Admin: 07/26/23 08:10 Dose: Not Given Sodium Chloride (Flush Normal Saline 10 Ml) 10 ml IV BID [facility] Last Admin: 07/26/23 09:57 Dose: 10 ml Spironolactone (Spironolactone 25 Mg Tablet) 25 mg PO DAILY [facility] Microbiology Results 07/24/23 16:15 Clean Catch Urine [place] Count - Final >100,000 CFU/ML. 07/24/23 16:15 Clean Catch Urine - Final Escherichia Coli 07/24/23 18:16 Blood - Blood Aerobic Blood Culture - Preliminary Gram Neg Luis F 07/24/23 18:16 Blood - Blood Blood Culture Gram Stain - Final 07/24/23 18:16 Blood - Blood Anaerobic Blood Culture - Preliminary Gram Neg Luis F 07/24/23 18:16 Blood - Blood Gram Stain - Final 07/24/23 18:41 Blood - Blood Aerobic Blood Culture - Preliminary Gram Neg Luis F 07/24/23 18:41 Blood - Blood Blood Culture Gram Stain - Final 07/24/23 18:41 Blood - Blood Anaerobic Blood Culture - Preliminary Gram Neg Luis F 07/24/23 18:41 Blood - Blood Gram Stain - Final Assessment/ Plan: Nephrology No dyspnea No chest pain Feeling better No acute events overnight Vitals, medications, blood work and imaging reviewed in the chart. General: In no apparent distress, Oriented x3, Cooperative HEENT: Atraumatic Neck: Supple Respiratory: Clear to auscultation bilaterally Cardiovascular: No edema, Regular rate/rhythm Gastrointestinal: Soft and benign, Non-distended Musculoskeletal: No clubbing, No contractures Integumentary: No rashes, No cyanosis Neurological: Normal speech Laboratory Data (last 24 hrs) 07/24/23 07/24/23 16:30 16:30 WBC 14.50 H Hgb 12.7 Hct 38.3 Plt Count 97 L Sodium 134 L Potassium 3.9 BUN 35 H Creatinine 1.84 H Glucose 187 H Imagings Data: EXAM DESCRIPTION: CT - Abdomen Pelvis Wo Contrast - 07/24/2023 5:49 pm CLINICAL HISTORY: diarrhea COMPARISON: Head Brain Wo Cont dated 07/24/2023 TECHNIQUE: Thin cut axial CT imaging of the abdomen and pelvis was performed without IV contrast. Multiplanar reformats were generated and reviewed. All CT scans are performed using dose optimization technique as appropriate and may include automated exposure control or mA/KV adjustment according to patient size. FINDINGS: No suspicious findings in the lung bases. The liver is mildly enlarged, showing diffuse hepatic parenchymal hypoattenuation suggesting steatosis. Adrenal glands, spleen, and pancreas show no suspicious findings. Gallbladder and biliary tree are also without suspicious finding. Symmetric renal contour, without suspicious parenchymal findings within limits of noncontrast technique. No evidence of radiopaque calculi or hydroureteronephrosis. Right perinephric and periureteric fat stranding. No dilated bowel loops or bowel wall thickening. Colonic diverticulosis. No free air, free fluid or inflammatory stranding. No hernia, mass or bulky lymphadenopathy. The urinary bladder is suboptimally distended limiting evaluation. No suspicious bony findings. IMPRESSION: Nonspecific right perinephric and periureteric fat stranding. This could relate to recently passed stone or ongoing pyelonephritis. Please correlate clinically, and with urinalysis results. No other acute intra-abdominal process. Diffuse hepatic parenchymal hypoattenuation suggesting steatosis. [facility] 5:42 pm CLINICAL HISTORY: Syncope COMPARISON: Chest Pa And Lat (2 Views) dated 11/10/2018 TECHNIQUE: Portable AP view of the chest. FINDINGS: Central interstitial prominence and perihilar and left basilar patchy opacities. No pneumothorax or effusion. The cardiomediastinal contours are unremarkable. IMPRESSION: Central opacities as above, suggestive of central congestion. Superimposed pneumonia would be difficult to exclude. Conclusions/Impression: Stage I TRINITY in the setting of hypotension CKD III with Proteinuria -No NSAIDs Hyponatremia -Continue Lasix Hypokalemia -Replete as ordered NAG Metabolic Acidosis -Continue Lasix PreDM -No sugar diet Anemia in chronic illness -Monitor H&H Sepsis Acute E.coli Pyelonephritis -Continue abx Hospitalist note reviewed
[2023-07-27] MEDS: ALBUTEROL 2.5 MG/3 ML NEB SOL NEB SCH ×4 (01:05→19:15)
[2023-07-27] MEDS: IPRATROPIUM BROM 0.5MG/2.5ML NEB SCH ×4 (01:05→19:15)
[2023-07-27 02:39] LABS: UR PROTEIN 53.1 mg/dL (<11.9); Urine Protein/Creatinine Ratio 0.78 ratio (<0.15)
[2023-07-27 03:06] LABS: UR MICROALBUMIN 7.6 mg/dL (< 1.9)
[2023-07-27 03:39] LABS: Absolute Lymphocytes (CBC) 1.2 K/uL (0.7-4.9); Hematocrit 35.5 % (36.0-45.0); Lymphocytes % 13.3 % (15.3-44.8); MCV 94.3 fL (80-100); MPV 10.7 fL (7.6-11.3); Platelets 104 thou/uL (152-406); RBC Red Blood Cell Count 3.76 M/uL (3.86-4.86)
[2023-07-27 03:44] LABS: Specific Gravity 1.013 (1.005-1.030); Urine Bacteria None Seen /HPF (<20); Urine Bilirubin NEGATIVE (Negative); Urine Blood Trace (Negative); Urine Clarity Turbid (Clear); Urine Color Yellow (Yellow); Urine Glucose NEGATIVE (Negative); Urine Protein TRACE (Negative); Urine Urobilinogen Normal (Normal)
[2023-07-27 04:02] LABS: Magnesium 1.7 mg/dL (1.6-2.4); Phosphorus 2.2 mg/dL (2.5-4.9); Potassium 3.7 mEq/L (3.5-5.1); Uric Acid 6.7 mg/dL (2.6-6.0)
--- NOTE | 2023-07-27 07:14 | P.PN ---
Date of Service: 07/27/23 Subjective: [place] dizzy yesterday, didn't work with PT appetite improving, no difficulty swallowing per family Breathing comfortably on room air, +mild cough no acute events overnight afebrile ROS: 10 point ROS as noted above, otherwise negative Physical Exam: GEN: Alert, orientedx2 HEENT: Normal conjunctiva, sclera anicteric CV: Regular rate and rhythm, no edema Pulm: Nonlabored respirations on room air, +mild expiratory wheeze ABD: Soft, nontender, nondistended Neuro: Normal speech, normal affect vitals reviewed Problem List: Sepsis secondary to Acute Pyelonephritis with E. Coli Bacteremia Metabolic encephalopathy secondary to pyelonephritis NSTEMI TRINITY COPD Hypertension Hyperlipidemia NIDDM2 Hypothyroidism Dementia Fatty Liver Sepsis secondary to Acute Pyelonephritis with E. Coli Bacteremia Metabolic encephalopathy secondary to pyelonephritis E. Coli, Bacteremia CT head (07/24): No evidence of an acute intracranial process. urine cx: E. coli blood cx: E.coli ID consulted IV Rocephin (07/25-07/26) switched to PO levaquin (07/27) afebrile, +leukocytosis PT consult NSTEMI No chest pain. troponins mildly elevated monitor on telemetry echo ordered Cardiology consulted Stress test was negative 07/26 IV lasix switched to PO 07/27 TRINITY hyponatremia Nephrology consulted Monitor renal function Continue PO lasix improving COPD, chronic CXR (07/24):Central opacities, suggestive of central congestion. CXR (07/26): Similar patchy opacities in both lung bases prior studies. likely at electasis. Small left pleural effusion. PRN nebs on room air Continue home medications Encourage incentive spirometry NIDDM2 Accu-Cheks, SSI Hypertension Hyperlipidemia Hypothyroidism Dementia Fatty Liver Continue home medications VTE: Heparin sq Code: Full Dispo: Home; ~1-2 days Pending further improvement, remains afebrile
[2023-07-27] MEDS: INSULIN -REGULAR HUMAN 50 UNIT/0.5 ML ML SQ SCH ×4 (07:30→21:00)
--- NOTE | 2023-07-27 07:34 | TREADPHA ---
DX: ELEVATED TROPONIN Date of Study: 07/26/2023 Ht: 4' 10 " Wt: 192 lb 0 oz Consulting Physician: OTIS MEDICATIONS: TYLENOL, PROVENTIL, LASIX, GLUCAGEN, HEPARIN, NOVOLIN-R, ATROVENT, ZOFRAN, KLOR-CON HISTORY: 78 YEAR OLD FEMALE WITH COMPLAINTS OF CHEST PAIN. HISTORY OF HYPERTENSION, HYPOTHYROID, DEMENTIA, FAMILY HISTORY OF CORONARY ARTERY DISEASE. DENIES PREVIOUS HEART SURGERY. SMOKES FOR OVER TWENTY YEARS, QUIT EIGHT MONTHS AGO. DENIESALCOHOL OR DRUG USE. PHYSICIAL EXAMINATION: RESTING B.P.: 11 RESTING H.R.: 76 RESTING EKG: NORMAL SINUS RHYTHM, WITHIN NORMAL LIMITS PROTOCOL: PHARMACOLOGIC EXERCISE TIME: 3:30 B.P. AT [place] STRESS: 111/64 IMPRESSION: LEXISCAN INJECTED. CARDIOLITE GIVEN, SEE NUCLEAR MEDICINE REPORT. DENIES CHEST PAIN OR SHORTNESS OF BREATH. NO SUPRAVENTRICULAR TACHYCARDIA, VENTRICULAR TACHYCARDIA, PREMATURE VENTRICULAR COMPLEXES, PREMATURE ATRIAL COMPLEXES NOTED. NO ELECTROCARDIOGRAM CHANGES OF ISCHEMIA WITH LEXISCAN.
[2023-07-27] MEDS ORDERED: MAGNESIUM SULFATE 1 gm IVPB 1 GM/100 ML BAG IV ONE (08:00)
[2023-07-27] MEDS ORDERED: POTASSIUM CL SA 10 MEQ TAB PO ONE (08:00)
[2023-07-27] MEDS: MEMANTINE HCL 10 MG TABLET PO SCH ×2 (08:30→20:59)
[2023-07-27] MEDS: CEFTRIAXONE 2,000 MG in NA CHLORIDE 0.9% 100 ML IV SCH (08:31)
[2023-07-27] MEDS: SPIRONOLACTONE 25 MG TABLET PO SCH (08:37)
[2023-07-27] MEDS: FUROSEMIDE 40 MG TABLET PO SCH ×2 (08:38→16:57)
[2023-07-27] MEDS: HEPARIN 5000 UNIT/ML 1 ML VIAL SQ SCH ×2 (09:18→16:18)
--- NOTE | 2023-07-27 09:30 | P.PN ---
Date of Service: 07/27/23 Chief Complaint: Confusion Subjective: Improving Patient in bed, alert and oriented x 2-3. Breathing comfortably on room air. Daughter at bedside. Patient denies any new or worsening complaints. Physical Examination Temp Pulse Resp BP Pulse Ox 99.0 F 81 17 131/74 95 07/27/23 04:00 07/27/23 08:38 07/27/23 04:00 07/27/23 08:38 07/27/23 04:00 General: Alert, In no apparent distress, Oriented x3. HEENT: Atraumatic, Normocephalic Neck: Supple, JVD not distended Respiratory: Normal air movement (on room air), Diminished Cardiovascular: No edema, Regular rate/rhythm Gastrointestinal: Normal bowel sounds, Soft and benign, No tenderness Musculoskeletal: No clubbing, No swelling Integumentary: No rashes Neurological: Normal speech, Normal affect Urinary: Other (PureWick with martinez colored urine) Laboratory data -Reviewed Microbiology data -Reviewed Imagings Data: Reviewed Assessment and Plan Problem list E.coli Bacteremia Acute pyelonephritis Acute kidney injury Hypertension Hyperlipidemia Diabetes mellitus Hypothyroidism COPD Dementia E.coli Bacteremia secondary to Complicated Urinary Tract Infection -CT abdomen pelvis 07/24: "Nonspecific right perinephric and periureteral fat stranding. This could relate to recently passed stone or ongoing pyelonephritis. Please correlate clinically, and with urinalysis results." - Urine culture 07/24: Escherichia coli , [facility] count >100,000 CFU/mL - Blood cultures 07/24: Escherichia coli in 4 of 4 bottles - On Rocephin (started 07/25) - Leukocytosis improved. Afebrile. Acute kidney injury: Nephrology on case Recommendations -Bacteremia/pyelonephritis: Continue antibiotic therapy for 14 days -Currently on Rocephin IV (07/25-) - Consider switch to Levaquin PO to complete 14 days of antibiotics (07/25- 08/08) -Monitor WBC and fever trends Patient and daughter explained side effects of antibiotic medication. If patient develops persistent diarrhea, concern for inadequate absorption of oral antibiotic and will need to continue with IV antibiotic. Case discussed with Maria D Pringle
--- NOTE | 2023-07-27 10:28 | P.PN ---
Date of Service: 07/27/23 Vital Signs Temp Pulse Resp BP Pulse Ox 97.2 F 81 20 131/74 99 07/27/23 08:00 07/27/23 08:38 07/27/23 08:00 07/27/23 08:38 07/27/23 08:00 Medications Acetaminophen (Acetaminophen 325 Mg Tablet) 650 mg PO Q4H PRN PRN Reason: Pain scale 2-4 (Mild) Last Admin: 07/26/23 15:59 Dose: 650 mg Albuterol Sulfate (Albuterol 2.5 Mg/3 Ml Neb [place]) 2.5 mg NEB [id number] [facility] Last Admin: 07/27/23 07:48 Dose: 2.5 mg Donepezil HCl (Donepezil Hcl 5 Mg Tab) 10 mg PO 1700 [facility] Escitalopram Oxalate (Escitalopram 20 Mg Tab) 10 mg PO 1700 [facility] Furosemide (Furosemide 40 Mg Tablet) 40 mg PO BIDL [facility] Last Admin: 07/27/23 08:38 Dose: 40 mg Glucagon (Glucagon 1 Mg/Vial) 1 mg IM 1X PRN; Protocol PRN Reason: HYPOGLYCEMIA Heparin Sodium (Porcine) (Heparin 5000 Unit/Ml 1 Ml Vial) 5,000 unit SQ Q8HR [facility] Last Admin: 07/27/23 09:18 Dose: 5,000 unit Dextrose (Dextrose 10% Water Iv Soln.) 125 mls @ 0 mls/hr IV PRN PRN; Protocol PRN Reason: HYPOGLYCEMIA Ceftriaxone Sodium 2,000 mg/ (Sodium Chloride) 100 mls @ 200 mls/hr IV DAILY [facility]; Protocol Last Admin: 07/27/23 08:31 Dose: 100 mls Insulin Human Regular (Insulin -Regular Human 50 Unit/0.5 Ml Ml) 0 unit SQ ACHS [facility]; Protocol Last Admin: 07/27/23 07:30 Dose: Not Given Ipratropium Protem (Ipratropium Brom 0.5mg/2.5ml) 0.5 mg NEB [id number] [facility] Last Admin: 07/27/23 07:48 Dose: 0.5 mg Levothyroxine Sodium (Levothyroxine Sod 0.075 Mg Tab) 0.15 mg PO 0600 [facility] Memantine (Memantine Hcl 10 Mg Tablet) 10 mg PO BID [facility] Last Admin: 07/27/23 08:30 Dose: 10 mg Ondansetron HCl (Ondansetron 4 Mg/2 Ml Vial) 4 mg IV Q6HP PRN PRN Reason: NAUSEA / VOMITING Sodium Chloride (Flush Normal Saline 10 Ml) 10 ml IV BID [facility] Last Admin: 07/27/23 08:31 Dose: 10 ml Sodium Chloride (Flush Normal Saline 10 Ml) 10 ml IV BID [facility] Last Admin: 07/27/23 08:38 Dose: Not Given Spironolactone (Spironolactone 25 Mg Tablet) 25 mg PO DAILY [facility] Last Admin: 07/27/23 08:37 Dose: 25 mg Microbiology Results 07/24/23 18:16 Blood - Blood Aerobic Blood Culture - Final Gram Neg Luis F Escherichia Coli 07/24/23 18:16 Blood - Blood Blood Culture Gram Stain - Final 07/24/23 18:16 Blood - Blood Anaerobic Blood Culture - Final Gram Neg Luis F Escherichia Coli 07/24/23 18:16 Blood - Blood Gram Stain - Final 07/24/23 18:41 Blood - Blood Aerobic Blood Culture - Final Gram Neg Luis F Escherichia Coli 07/24/23 18:41 Blood - Blood Blood Culture Gram Stain - Final 07/24/23 18:41 Blood - Blood Anaerobic Blood Culture - Final Gram Neg Luis F Escherichia Coli 07/24/23 18:41 Blood - Blood Gram Stain - Final 07/24/23 16:15 Clean Catch Urine [place] Count - Final >100,000 CFU/ML. 07/24/23 16:15 Clean Catch Urine - Final Escherichia Coli Assessment/ Plan: Nephrology No dyspnea No chest pain Feeling better with improved appetite No acute events overnight Vitals, medications, blood work and imaging reviewed in the chart. General: In no apparent distress, Oriented x3, Cooperative. Obese. HEENT: Atraumatic Neck: Supple Respiratory: Clear to auscultation bilaterally Cardiovascular: No edema, Regular rate/rhythm Gastrointestinal: Soft and benign, Non-distended Musculoskeletal: No clubbing, No contractures Integumentary: No rashes, No cyanosis Neurological: Normal speech Laboratory Data (last 24 hrs) 07/24/23 07/24/23 16:30 16:30 WBC 14.50 H Hgb 12.7 Hct 38.3 Plt Count 97 L Sodium 134 L Potassium 3.9 BUN 35 H Creatinine 1.84 H Glucose 187 H Imagings Data: EXAM DESCRIPTION: CT - Abdomen Pelvis Wo Contrast - 07/24/2023 5:49 pm CLINICAL HISTORY: diarrhea COMPARISON: Head Brain Wo Cont dated 07/24/2023 TECHNIQUE: Thin cut axial CT imaging of the abdomen and pelvis was performed without IV contrast. Multiplanar reformats were generated and reviewed. All CT scans are performed using dose optimization technique as appropriate and may include automated exposure control or mA/KV adjustment according to patient size. FINDINGS: No suspicious findings in the lung bases. The liver is mildly enlarged, showing diffuse hepatic parenchymal hypoattenuation suggesting steatosis. Adrenal glands, spleen, and pancreas show no suspicious findings. Gallbladder and biliary tree are also without suspicious finding. Symmetric renal contour, without suspicious parenchymal findings within limits of noncontrast technique. No evidence of radiopaque calculi or hydroureteronephrosis. Right perinephric and periureteric fat stranding. No dilated bowel loops or bowel wall thickening. Colonic diverticulosis. No free air, free fluid or inflammatory stranding. No hernia, mass or bulky lymphadenopathy. The urinary bladder is suboptimally distended limiting evaluation. No suspicious bony findings. IMPRESSION: Nonspecific right perinephric and periureteric fat stranding. This could relate to recently passed stone or ongoing pyelonephritis. Please correlate clinically, and with urinalysis results. No other acute intra-abdominal process. Diffuse hepatic parenchymal hypoattenuation suggesting steatosis. EXAM DESCRIPTION: RADChest Single View07/24/2023 5:42 pm CLINICAL HISTORY: Syncope COMPARISON: Chest Pa And Lat (2 Views) dated 11/10/2018 TECHNIQUE: Portable AP view of the chest. FINDINGS: Central interstitial prominence and perihilar and left basilar patchy opacities. No pneumothorax or effusion. The cardiomediastinal contours are unremarkable. IMPRESSION: Central opacities as above, suggestive of central congestion. Superimposed pneumonia would be difficult to exclude. [id number] EXAM DESCRIPTION: RAD - Chest Single View - 07/26/2023 1:37 pm CLINICAL HISTORY: wheeze, ?CHF Chest pain. COMPARISON: Chest Single View dated 07/24/2023; Chest Pa And Lat (2 Views) dated 11/10/2018 FINDINGS: Portable technique limits examination quality. Patchy opacities in both lung bases appear similar to prior studies. This likely represents atelectasis. Small left pleural effusion. The heart is moderately enlarged. Conclusions/Impression: Stage I TRINITY in the setting of hypotension CKD III with Proteinuria -No NSAIDs Hyponatremia, resolved Hypokalemia -Replete prn NAG Metabolic Acidosis, resolved Hypophosphatemia -Encourage nutrition PreDM -No sugar diet Anemia in chronic illness -Monitor H&H Sepsis Acute E.coli Pyelonephritis -Continue abx Hospitalist note reviewed Case reviewed with Dr. Pacheco
[2023-07-27] MEDS: levoFLOXacin 750 MG TAB PO SCH (11:49)
[2023-07-27] MEDS: ESCITALOPRAM 20 MG TAB PO SCH (16:18)
[2023-07-27] MEDS: DONEPEZIL HCL 5 MG TAB PO SCH (16:19)
[2023-07-27] MEDS: ACETAMINOPHEN 325 MG TABLET PO PRN (16:22)
[2023-07-27] MEDS: LACTOBACILLUS/ACIDOPHILUS TAB PO SCH (16:57)
[2023-07-28] MEDS: HEPARIN 5000 UNIT/ML 1 ML VIAL SQ SCH ×3 (00:41→17:20)
[2023-07-28] MEDS: ALBUTEROL 2.5 MG/3 ML NEB SOL NEB SCH ×4 (01:10→19:50)
[2023-07-28] MEDS: IPRATROPIUM BROM 0.5MG/2.5ML NEB SCH ×4 (01:10→19:50)
[2023-07-28 03:39] LABS: Potassium 3.7 mEq/L (3.5-5.1)
[2023-07-28] MEDS: LEVOTHYROXINE SOD 0.075 MG TAB PO SCH (06:28)
--- NOTE | 2023-07-28 06:57 | P.PN ---
Date of Service: 07/28/23 Subjective: Feeling better each day sat up in chair and ambulated to the bathroom with assistance today 3 soft / pasty BM ~24 hours no new / worsening problems afebrile ROS: 10 point ROS as noted above, otherwise negative Physical Exam: GEN: Alert, oriented, NAD HEENT: Normal conjunctiva, sclera anicteric CV: Regular rate and rhythm, no edema Pulm: Nonlabored respirations on room air, clear bilaterally ABD: Soft, nontender, nondistended Neuro: Normal speech, normal affect vitals reviewed Problem List: Sepsis secondary to Acute Pyelonephritis with E. Coli Bacteremia Metabolic encephalopathy secondary to pyelonephritis NSTEMI TRINITY COPD Hypertension Hyperlipidemia NIDDM2 Hypothyroidism Dementia Fatty Liver Sepsis secondary to Acute Pyelonephritis with E. Coli Bacteremia Metabolic encephalopathy secondary to pyelonephritis E. Coli, Bacteremia CT head (07/24): No evidence of an acute intracranial process. urine cx: E. coli blood cx: E.coli ID consulted IV Rocephin (07/25-07/26) switched to PO levaquin (07/27-08/08) x14 days of total antibiotics afebrile, +leukocytosis PT consult NSTEMI No chest pain. troponins mildly elevated monitor on telemetry echo: 59% EF, Grade 1 diastolic dysfunction, mild TR Cardiology consulted Stress test was negative 07/26 IV lasix switched to PO 07/27 TRINITY hyponatremia Nephrology consulted Monitor renal function Continue PO lasix improving COPD, chronic CXR (07/24):Central opacities, suggestive of central congestion. CXR (07/26): Similar patchy opacities in both lung bases prior studies. likely atelectasis. Small left pleural effusion. PRN nebs on room air Continue home medications Encourage incentive spirometry NIDDM2 Accu-Cheks, SSI Hypertension Hyperlipidemia Hypothyroidism Dementia Fatty Liver Continue home medications VTE: Heparin sq Code: Full Dispo: Home with HH; ~1 day Pending further improvement, remains afebrile
[2023-07-28 07:11] LABS: Phosphorus 3.5 mg/dL (2.5-4.9)
[2023-07-28] MEDS: PANTOPRAZOLE 40MG TABLET PO SCH (07:20)
[2023-07-28] MEDS: INSULIN -REGULAR HUMAN 50 UNIT/0.5 ML ML SQ SCH ×4 (07:30→20:55)
[2023-07-28] MEDS: LACTOBACILLUS/ACIDOPHILUS TAB PO SCH (08:00)
--- NOTE | 2023-07-28 08:26 | P.PN ---
Date of Service: 07/28/23 Chief Complaint: Confusion Subjective: Improving Patient sitting in chair. Denies any complaints at this time. No acute events reported overnight. Daughter at bedside. Physical Examination Temp Pulse Resp BP Pulse Ox 97.5 F 87 18 114/65 93 07/28/23 04:00 07/28/23 04:00 07/28/23 04:00 07/28/23 04:00 07/28/23 04:00 General: Alert, In no apparent distress, Oriented x3. HEENT: Atraumatic, Normocephalic Neck: Supple, JVD not distended Respiratory: Normal air movement. Diminished at bases. Breathing comfortably on room air. Cardiovascular: No edema, Regular rate/rhythm Gastrointestinal: Normal bowel sounds, Soft and benign, No tenderness Musculoskeletal: No clubbing, No swelling Integumentary: No rashes Neurological: Normal speech, Normal affect Laboratory data -Reviewed Microbiology data -Reviewed Imagings Data: Reviewed Medication list: Reviewed Assessment and Plan Problem list E.coli Bacteremia Acute pyelonephritis Acute kidney injury Hypertension Hyperlipidemia Diabetes mellitus Hypothyroidism COPD Dementia E.coli Bacteremia secondary to Complicated Urinary Tract Infection -CT abdomen pelvis 07/24: "Nonspecific right perinephric and periureteral fat stranding. This could relate to recently passed stone or ongoing pyelonephritis. Please correlate clinically, and with urinalysis results." - Urine culture 07/24: Escherichia coli , [place] count >100,000 CFU/mL - Blood cultures 07/24: Escherichia coli in 4 of 4 bottles - Rocephin (07/25-07/27) switched to Levaquin PO 07/27. - Leukocytosis improved. Afebrile. Acute kidney injury: Nephrology on case Recommendations -Bacteremia/pyelonephritis: Continue antibiotic therapy for 14 days - Continue Levaquin PO to complete 14 days of antibiotics (07/25-08/08) -Continue probiotic daily. Patient and daughter explained side effects of antibiotic medication. If patient develops persistent diarrhea, concern for inadequate absorption of oral antibiotic and will need to continue with IV antibiotic. Case discussed with Maria D Pringle
[2023-07-28] MEDS: MEMANTINE HCL 10 MG TABLET PO SCH ×2 (08:36→20:55)
[2023-07-28] MEDS: SPIRONOLACTONE 25 MG TABLET PO SCH (08:36)
[2023-07-28] MEDS: FUROSEMIDE 40 MG TABLET PO SCH ×2 (08:36→17:21)
[2023-07-28] MEDS ORDERED: POTASSIUM CL SA 10 MEQ TAB PO ONE (09:00)
[2023-07-28] MEDS: DONEPEZIL HCL 5 MG TAB PO SCH (17:20)
[2023-07-28] MEDS: ESCITALOPRAM 20 MG TAB PO SCH (17:20)
--- NOTE | 2023-07-28 21:16 | P.PN ---
Date of Service: 07/28/23 Vital Signs Temp Pulse Resp BP Pulse Ox 97.2 F 96 H 18 112/72 93 07/28/23 16:00 07/28/23 16:00 07/28/23 16:00 07/28/23 16:00 07/28/23 16:00 Medications Acetaminophen (Acetaminophen 325 Mg Tablet) 650 mg PO Q4H PRN PRN Reason: Pain scale 2-4 (Mild) Last Admin: 07/27/23 16:22 Dose: 650 mg Albuterol Sulfate (Albuterol 2.5 Mg/3 Ml Neb Roul[place]) 2.5 mg NEB [id number] [facility] Last Admin: 07/28/23 19:50 Dose: 2.5 mg Donepezil HCl (Donepezil Hcl 5 Mg Tab) 10 mg PO 1700 [facility] Last Admin: 07/28/23 17:20 Dose: 10 mg Escitalopram Oxalate (Escitalopram 20 Mg Tab) 10 mg PO 1700 [facility] Last Admin: 07/28/23 17:20 Dose: 10 mg Furosemide (Furosemide 40 Mg Tablet) 40 mg PO BIDL [facility] Last Admin: 07/28/23 17:21 Dose: 40 mg Glucagon (Glucagon 1 Mg/Vial) 1 mg IM 1X PRN; Protocol PRN Reason: HYPOGLYCEMIA Heparin Sodium (Porcine) (Heparin 5000 Unit/Ml 1 Ml Vial) 5,000 unit SQ Q8HR [facility] Last Admin: 07/28/23 17:20 Dose: 5,000 unit Dextrose (Dextrose 10% Water Iv Soln.) 125 mls @ 0 mls/hr IV PRN PRN; Protocol PRN Reason: HYPOGLYCEMIA Insulin Human Regular (Insulin -Regular Human 50 Unit/0.5 Ml Ml) 0 unit SQ ACHS [facility]; Protocol Last Admin: 07/28/23 20:55 Dose: Not Given Ipratropium [place] (Ipratropium Brom 0.5mg/2.5ml) 0.5 mg NEB [id number] [facility] Last Admin: 07/28/23 19:50 Dose: 0.5 mg Lactobacillus Acidoph/[place] (Lactobacillus/Acidophilus Tab) 1 tab PO DAILY WITH BREAKFAST [facility] Last Admin: 07/28/23 08:00 Dose: 1 tab Levofloxacin (Levofloxacin 750 Mg Tab) 750 mg PO Q48H [facility] Last Admin: 07/27/23 11:49 Dose: 750 mg Levothyroxine Sodium (Levothyroxine Sod 0.075 Mg Tab) 0.15 mg PO 0600 [facility] Last Admin: 07/28/23 06:28 Dose: 0.15 mg Memantine (Memantine Hcl 10 Mg Tablet) 10 mg PO BID [facility] Last Admin: 07/28/23 20:55 Dose: 10 mg Ondansetron HCl (Ondansetron 4 Mg/2 Ml Vial) 4 mg IV Q6HP PRN PRN Reason: NAUSEA / VOMITING Pantoprazole Sodium (Pantoprazole 40mg Tablet) [facility]; Protocol Last Admin: 07/28/23 07:20 Dose: 40 mg Sodium Chloride (Flush Normal Saline 10 Ml) 10 ml IV BID [facility] Last Admin: 07/28/23 20:55 Dose: 10 ml Spironolactone (Spironolactone 25 Mg Tablet) 25 mg PO DAILY [facility] Last Admin: 07/28/23 08:36 Dose: 25 mg Microbiology Results 07/24/23 18:16 Blood - Blood Aerobic Blood Culture - Final Gram Neg Luis F Escherichia Coli 07/24/23 18:16 Blood - Blood Blood Culture Gram Stain - Final 07/24/23 18:16 Blood - Blood Anaerobic Blood Culture - Final Gram Neg Luis F Escherichia Coli 07/24/23 18:16 Blood - Blood Gram Stain - Final 07/24/23 18:41 Blood - Blood Aerobic Blood Culture - Final Gram Neg Luis F Escherichia Coli 07/24/23 18:41 Blood - Blood Blood Culture Gram Stain - Final 07/24/23 18:41 Blood - Blood Anaerobic Blood Culture - Final Gram Neg Luis F Escherichia Coli 07/24/23 18:41 Blood - Blood Gram Stain - Final 07/24/23 16:15 Clean Catch Urine [place] Count - Final >100,000 CFU/ML. 07/24/23 16:15 Clean Catch Urine - Final Escherichia Coli Assessment/ Plan: Nephrology No dyspnea No chest pain No dizziness Feeling better with improved appetite No acute events overnight Vitals, medications, blood work and imaging reviewed in the chart. General: In no apparent distress, Oriented x3, Cooperative. Obese. HEENT: Atraumatic Neck: Supple Respiratory: Clear to auscultation bilaterally Cardiovascular: No edema, Regular rate/rhythm Gastrointestinal: Soft and benign, Non-distended Musculoskeletal: No clubbing, No contractures Integumentary: No rashes, No cyanosis Neurological: Normal speech Laboratory Data (last 24 hrs) 07/24/23 07/24/23 16:30 16:30 WBC 14.50 H Hgb 12.7 Hct 38.3 Plt Count 97 L Sodium 134 L Potassium 3.9 BUN 35 H Creatinine 1.84 H Glucose 187 H Imagings Data: EXAM DESCRIPTION: CT - Abdomen Pelvis Wo Contrast - 07/24/2023 5:49 pm CLINICAL HISTORY: diarrhea COMPARISON: Head Brain Wo Cont dated 07/24/2023 TECHNIQUE: Thin cut axial CT imaging of the abdomen and pelvis was performed without IV contrast. Multiplanar reformats were generated and reviewed. All CT scans are performed using dose optimization technique as appropriate and may include automated exposure control or mA/KV adjustment according to patient size. FINDINGS: No suspicious findings in the lung bases. The liver is mildly enlarged, showing diffuse hepatic parenchymal hypoattenuation suggesting steatosis. Adrenal glands, spleen, and pancreas show no suspicious findings. Gallbladder and biliary tree are also without suspicious finding. Symmetric renal contour, without suspicious parenchymal findings within limits of noncontrast technique. No evidence of radiopaque calculi or hydroureteronephrosis. Right perinephric and periureteric fat stranding. No dilated bowel loops or bowel wall thickening. Colonic diverticulosis. No free air, free fluid or inflammatory stranding. No hernia, mass or bulky lymphadenopathy. The urinary bladder is suboptimally distended limiting evaluation. No suspicious bony findings. IMPRESSION: Nonspecific right perinephric and periureteric fat stranding. This could relate to recently passed stone or ongoing pyelonephritis. Please correlate clinically, and with urinalysis results. No other acute intra-abdominal process. Diffuse hepatic parenchymal hypoattenuation suggesting steatosis. EXAM DESCRIPTION: RADChest Single View07/24/2023 5:42 pm CLINICAL HISTORY: Syncope COMPARISON: Chest Pa And Lat (2 Views) dated 11/10/2018 TECHNIQUE: Portable AP view of the chest. FINDINGS: Central interstitial prominence and perihilar and left basilar patchy opacities. No pneumothorax or effusion. The cardiomediastinal contours are unremarkable. IMPRESSION: Central opacities as above, suggestive of central congestion. Superimposed pneumonia would be difficult to exclude. [id number] EXAM DESCRIPTION: RAD - Chest Single View - 07/26/2023 1:37 pm CLINICAL HISTORY: wheeze, ?CHF Chest pain. COMPARISON: Chest Single View dated 07/24/2023; Chest Pa And Lat (2 Views) dated 11/10/2018 FINDINGS: Portable technique limits examination quality. Patchy opacities in both lung bases appear similar to prior studies. This likely represents atelectasis. Small left pleural effusion. The heart is moderately enlarged. [id number] LEFT VENTRICULAR WALL MOTION: NORMAL DOPPLER/COLOR FLOW: MILD TRICUSPID REGURGITATION COMMENTS: 1. NORMAL LEFT VENTRICULAR EJECTION FRACTION 55-60% WITH NORMAL WALL MOTION 2. GRADE I DIASTOLIC DYSFUNCTION Conclusions/Impression: Stage I TRINITY in the setting of hypotension CKD III with Proteinuria -No NSAIDs Hyponatremia -Encourage nutrition -Continue Lasix Hypokalemia -Replete prn NAG Metabolic Acidosis, resolved Hypophosphatemia -Encourage nutrition Diastolic CHF, chronic -Continue Lasix and Spironolactone PreDM -No sugar diet Anemia in chronic illness -Monitor H&H Sepsis Acute E.coli Pyelonephritis -Continue abx Hospitalist note reviewed
[2023-07-29] MEDS: HEPARIN 5000 UNIT/ML 1 ML VIAL SQ SCH ×3 (00:40→16:03)
[2023-07-29] MEDS: ALBUTEROL 2.5 MG/3 ML NEB SOL NEB SCH ×5 (01:00→19:40)
[2023-07-29] MEDS: IPRATROPIUM BROM 0.5MG/2.5ML NEB SCH ×5 (01:00→19:40)
[2023-07-29 04:05] LABS: Albumin 2.3 g/dL (3.4-5.0); Phosphorus 3.8 mg/dL (2.5-4.9); Potassium 3.6 mEq/L (3.5-5.1)
[2023-07-29] MEDS ORDERED: POTASSIUM CL SA 10 MEQ TAB PO ONE ×2 (05:25→07:19)
[2023-07-29] MEDS: PANTOPRAZOLE 40MG TABLET PO SCH (05:59)
[2023-07-29] MEDS: LEVOTHYROXINE SOD 0.075 MG TAB PO SCH (05:59)
--- NOTE | 2023-07-29 06:43 | P.PN ---
Date of Service: 07/29/23 Subjective: Feeling better Strength improving Ambulating better per her report daughter states she was concerned yesterday due to dizziness ambulating to bathroom no acute events overnight ROS: 10 point ROS as noted above, otherwise negative Physical Exam: GEN: Alert, oriented, NAD HEENT: Normal conjunctiva, sclera anicteric CV: Regular rate and rhythm, no edema Pulm: Nonlabored respirations on room air, clear bilaterally ABD: Soft, nontender, nondistended Neuro: Normal speech, normal affect vitals reviewed Problem List: Sepsis secondary to Acute Pyelonephritis with E. Coli Bacteremia Metabolic encephalopathy secondary to pyelonephritis NSTEMI [place] COPD Hypertension Hyperlipidemia NIDDM2 Hypothyroidism Dementia Fatty Liver Sepsis secondary to Acute Pyelonephritis with E. Coli Bacteremia Metabolic encephalopathy secondary to pyelonephritis E. Coli, Bacteremia CT head (07/24): No evidence of an acute intracranial process. urine cx: E. coli blood cx: E.coli ID consulted IV Rocephin (07/25-07/26) switched to PO levaquin (07/27-08/08) x14 days of total antibiotics afebrile, +leukocytosis PT consult NSTEMI No chest pain. troponins mildly elevated monitor on telemetry echo: 59% EF, Grade 1 diastolic dysfunction, mild TR Cardiology consulted Stress test was negative 07/26 IV lasix switched to PO 07/27 [place] hyponatremia Nephrology consulted Monitor renal function Continue PO lasix at daily frequency improving COPD, chronic CXR (07/24):Central opacities, suggestive of central congestion. CXR (07/26): Similar patchy opacities in both lung bases prior studies. likely atelectasis. Small left pleural effusion. PRN nebs on room air Continue home medications Encourage incentive spirometry NIDDM2 Accu-Cheks, SSI Hypertension Hyperlipidemia Hypothyroidism Dementia Fatty Liver Continue home medications VTE: Heparin sq Code: Full Dispo: Home with HH; ~1 day Pending further improvement, remains afebrile
[2023-07-29] MEDS: INSULIN -REGULAR HUMAN 50 UNIT/0.5 ML ML SQ SCH ×4 (07:30→20:20)
[2023-07-29] MEDS: SPIRONOLACTONE 25 MG TABLET PO SCH (08:14)
[2023-07-29] MEDS: MEMANTINE HCL 10 MG TABLET PO SCH ×2 (08:14→20:17)
[2023-07-29] MEDS: LACTOBACILLUS/ACIDOPHILUS TAB PO SCH (08:15)
--- NOTE | 2023-07-29 09:48 | P.PN ---
Date of Service: 07/29/23 Chief Complaint: Confusion Subjective: Improving Patient ambulating to restroom with assistance from daughter. + dizziness reported upon standing up from sitting position Physical Examination Temp Pulse Resp BP Pulse Ox 97.4 F 89 16 118/76 96 07/29/23 08:00 07/29/23 08:14 07/29/23 08:00 07/29/23 08:14 07/29/23 08:00 General: Alert, In no apparent distress, Oriented x3. HEENT: Atraumatic, Normocephalic. Moist mucous membranes. Neck: Supple, JVD not distended Respiratory: Normal air movement. Clear to auscultation bilaterally. Breathing comfortably on room air. Cardiovascular: No edema, Regular rate/rhythm Gastrointestinal: Normal bowel sounds, Soft and benign, No tenderness Musculoskeletal: No clubbing, No swelling Integumentary: No rashes Neurological: Normal speech, Normal affect Laboratory data -Reviewed Microbiology data -Reviewed Imagings Data: Reviewed Medication list: Reviewed Assessment and Plan Problem list E.coli Bacteremia Acute pyelonephritis Acute kidney injury Hypertension Hyperlipidemia Diabetes mellitus Hypothyroidism COPD Dementia E.coli Bacteremia secondary to Complicated Urinary Tract Infection -CT abdomen pelvis 07/24: "Nonspecific right perinephric and periureteral fat stranding. This could relate to recently passed stone or ongoing pyelonephritis. Please correlate clinically, and with urinalysis results." - Urine culture 07/24: Escherichia coli , [place] count >100,000 CFU/mL - Blood cultures 07/24: Escherichia coli in 4 of 4 bottles - Rocephin (07/25-07/27) switched to Levaquin PO 07/27. - Leukocytosis improved. Afebrile. Acute kidney injury: Nephrology on case Recommendations -Bacteremia/pyelonephritis: Continue antibiotic therapy for 14 days - Continue Levaquin PO to complete 14 days of antibiotics (07/25-08/08) -Continue probiotic daily. - Supplemental nutrition as needed Plan of care discussed with patient's daughter. Case discussed with Maria D Pringle
[2023-07-29] MEDS: levoFLOXacin 750 MG TAB PO SCH (10:57)
[2023-07-29] MEDS: ESCITALOPRAM 20 MG TAB PO SCH (16:02)
[2023-07-29] MEDS: DONEPEZIL HCL 5 MG TAB PO SCH (16:03)
[2023-07-30] MEDS: HEPARIN 5000 UNIT/ML 1 ML VIAL SQ SCH ×2 (00:22→09:16)
[2023-07-30] MEDS: IPRATROPIUM BROM 0.5MG/2.5ML NEB SCH ×2 (02:10→07:22)
[2023-07-30] MEDS: ALBUTEROL 2.5 MG/3 ML NEB SOL NEB SCH ×2 (02:10→07:22)
[2023-07-30 04:24] LABS: Albumin 2.4 g/dL (3.4-5.0); Phosphorus 3.3 mg/dL (2.5-4.9); Potassium 4.5 mEq/L (3.5-5.1)
[2023-07-30] MEDS: LEVOTHYROXINE SOD 0.075 MG TAB PO SCH (05:56)
[2023-07-30] MEDS: PANTOPRAZOLE 40MG TABLET PO SCH (05:56)
[2023-07-30] MEDS: INSULIN -REGULAR HUMAN 50 UNIT/0.5 ML ML SQ SCH (07:30)
--- NOTE | 2023-07-30 08:04 | P.DS ---
Admission Date: 07/24/23 Discharge Date: 07/30/23 Disposition: DC HOME/HOME HEALTH CARE Discharge Condition: GOOD Reason for Admission: Confusion Consultations: Cardiology - Dr. Dsouza Nephrology - Dr. Angulo Infectious Disease - Dr. Cat Brief History of Present Illness: 78 yo F, PMH: hypertension, diabetes, hypothyroidism, diverticulitis, dementia, hypothyroidism, fatty liver COPD, recently stopped smoking, Patient presents to the emergency room [place] for confusion. Daughter is primary historian reports patient has been confused and weak today. Reports she was unable to get off of the commode. Report that she was more confused today, she was alert and oriented x2. No reported fever, chest pain, nausea vomiting diarrhea, edema dizziness. No history of NV or stroke. No history of kidney disease. Daughter reports patient saw PCP 2 weeks ago was told she was prediabetic, all other labs were normal. Plan to admit for pyelonephritis, metabolic encephalopathy, elevated troponin Hospital Course: Problem List: Sepsis secondary to Acute Pyelonephritis with E. Coli Bacteremia Metabolic encephalopathy secondary to pyelonephritis NSTEMI TRINITY COPD Hypertension Hyperlipidemia NIDDM2 Hypothyroidism Dementia Fatty Liver Patient presented with confusion, weakness. She was found to have Acute Pyelonephritis complicated with E. Coli Bacteremia. ID was consulted. Patient was given IV rocephin and had improvement of her symptoms. Patient remained afebrile throughout hospitalization, leukocytosis resolved, strength improved, was deemed stable for discharge home. Patient is to complete 9 more days of PO levaquin on discharge for a total of 14 days of antibiotics treatment. Last day is 08/08 Recommend . probiotic During her hospitalization, patients troponins were elevated. Cardiology was consulted. Echo done this hospitalization noted 59% EF, Grade 1 diastolic dysfunction, mild TR. Nuclear stress test 07/26 was negative. No further ischemic workup done while inpatient. Recommend to follow up with cardiology as outpatient. Advised low salt diet to decrease risk factors. During her hospitalization she was found to have an TRINITY felt secondary to hypotension. Nephrology was consulted. Her lisinopril and metoprolol were held, started on lasix and spironolactone, and had some improvement / remained stable (Creatinine. ~1.1-1.2). Her blood pressure during hospitalization has been borderline low to low normal. Recommend to check blood pressure daily. If blood pressure is consistently > 140 while on her new medications (lasix and spironolactone) restart lisinoprol (can cut in half if able to and slowly work way up to full dose) Patient is to stop taking lisinopril and metoprolol and to start taking Lasix and Spironolactone on discharge. Medications: New: Levaquin 1 pill ever other day to be completed on 08/08 Lasix 40 mg daily Spironolactone 25mg daily Probiotic (Over the counter) Stop: Lisinopril Metoprolol continue other home medications as previously prescribed Follow up: PCP 3-5 days - Recommend BMP in the next week to monitor renal function. Creatinine: 1.25 on discharge Cardiology 2-4 weeks Nephrology in 1-2 weeks Physical Exam: GEN: Alert, oriented, NAD HEENT: Normal conjunctiva, sclera anicteric CV: Regular rate and rhythm, no edema Pulm: Nonlabored respirations on room air, clear bilaterally ABD: Soft, nontender, nondistended Neuro: Normal speech, normal affect Vital Signs/Physical Exam: Temp Pulse Resp BP Pulse Ox 97.7 F 80 16 113/55 L 95 07/30/23 04:00 07/30/23 04:00 07/30/23 04:00 07/30/23 04:00 07/30/23 04:00 Laboratory Data at Discharge: WBC 9.30 thou/uL (4.3-10.9) 07/27/23 02:44 Hgb 12.5 g/dL (12.0-15.0) D 07/27/23 02:44 Hct 35.5 % (36.0-45.0) L 07/27/23 02:44 Plt Count 104 thou/uL (152-406) L D 07/27/23 02:44 Sodium 137 mEq/L (136-145) 07/30/23 02:46 Potassium 4.5 mEq/L (3.5-5.1) D 07/30/23 02:46 BUN 30 mg/dL (7-18) H 07/30/23 02:46 Creatinine 1.25 mg/dL (0.55-1.02) H 07/30/23 02:46 Glucose 133 mg/dL (74-106) H 07/30/23 02:46 Uric Acid 6.7 mg/dL (2.6-6.0) H 07/27/23 02:49 Phosphorus 3.3 mg/dL (2.5-4.9) 07/30/23 02:46 Magnesium 2.0 mg/dL (1.6-2.4) 07/28/23 02:47 Home Medications: Cholecalciferol (Vitamin D3) [Vitamin D 1000 Iu Tab*] 1,000 unit PO DAILY 07/24/23 Cholestyramine (with Sugar) [Cholestyramine Packet] 4 gm PO BID 07/24/23 Donepezil HCl [Aricept] 10 mg PO 169907/24/23 Escitalopram Oxalate [Lexapro] 10 mg PO 169907/24/23 Levothyroxine Sodium [Synthroid] 150 mcg PO 0600 07/24/23 Memantine HCl [Namenda] 10 mg PO BID 07/24/23 Multivitamin 1 each PO DAILY 07/24/23 Omeprazole [Prilosec] 40 mg PO DAILY 07/24/23 Pravastatin Sodium 20 mg PO 169907/24/23 ursodioL [Ursodiol] 300 mg PO BID 07/24/23 Furosemide [Lasix*] 40 mg PO DAILY 30 Days #30 tab 07/30/23 Spironolactone [Aldactone*] 25 mg PO DAILY 30 Days #30 tab 07/30/23 levoFLOXacin [Levaquin*] 750 mg PO Q48H 10 Days #5 tab 07/30/23 New Medications: Spironolactone [Aldactone*] 25 mg PO DAILY 30 Days #30 tab Furosemide [Lasix*] 40 mg PO DAILY 30 Days #30 tab levoFLOXacin [Levaquin*] 750 mg PO Q48H 10 Days #5 tab Physician Discharge Instructions: Patient presented with confusion, weakness. She was found to have Acute Pyelonephritis complicated with E. Coli Bacteremia. ID was consulted. Patient was given IV rocephin and had improvement of her symptoms. Patient remained afebrile throughout hospitalization, leukocytosis resolved, strength improved, was deemed stable for discharge home. Patient is to complete 9 more days of PO levaquin on discharge for a total of 14 days of antibiotics treatment. Last day is 08/08 Recommend . probiotic During her hospitalization, patients troponins were elevated. Cardiology was consulted. Echo done this hospitalization noted 59% EF, Grade 1 diastolic dysfunction, mild TR. Nuclear stress test 07/26 was negative. No further ischemic workup done while inpatient. Recommend to follow up with cardiology as outpatient. Advised low salt diet to decrease risk factors. During her hospitalization she was found to have an TRINITY felt secondary to hypotension. Nephrology was consulted. Her lisinopril and metoprolol were held, started on lasix and spironolactone, and had some improvement / remained stable (Creatinine. ~1.1-1.2). Her blood pressure during hospitalization has been borderline low to low normal. Recommend to check blood pressure daily. If blood pressure is consistently > 140 while on her new medications (lasix and spironolactone) restart lisinoprol (can cut in half if able to and slowly work way up to full dose) Patient is to stop taking lisinopril and metoprolol and to start taking Lasix and Spironolactone on discharge. Medications: New: Levaquin 1 pill ever other day to be completed on 08/08 Lasix 40 mg daily Spironolactone 25mg daily Probiotic (Over the counter) Stop: Lisinopril Metoprolol continue other home medications as previously prescribed Follow up: PCP 3-5 days - Recommend BMP in the next week to monitor renal function. Creatinine: 1.25 on discharge Cardiology 2-4 weeks Nephrology in 1-2 weeks Followup: José Morrison DO [Primary Care Provider] - Time spent managing pt's care (in minutes): 45
[2023-07-30] MEDS: SPIRONOLACTONE 25 MG TABLET PO SCH (08:57)
[2023-07-30] MEDS: LACTOBACILLUS/ACIDOPHILUS TAB PO SCH (08:58)
[2023-07-30] MEDS: MEMANTINE HCL 10 MG TABLET PO SCH (08:58)
[2023-07-30 08:59] VITALS: BP 125/78
[2023-07-30] MEDS ORDERED: FUROSEMIDE 40 MG TABLET PO SCH (09:00)
[2023-07-30 09:13] VITALS: O2SAT 93
[2023-07-30 11:02] VITALS: TEMP 97.3
== END 2023-07-30 10:50 | disposition home health service (06) | DRG 871 ==
LOC: ER 15:57 → ERHOLD 20:01 → 2ND 20:46
PROVIDERS: ADMIT Internal Medicine; ATTEND Hospitalist
DX: A41.51 Sepsis due to Escherichia coli [E. coli] (principal); G93.41 Metabolic encephalopathy; I21.4 Non-ST elevation (NSTEMI) myocardial infarction; N10 Acute pyelonephritis; E87.1 Hypo-osmolality and hyponatremia; Z68.41 Body mass index [BMI] 40.0-44.9, adult; N17.9 Acute kidney failure, unspecified; I13.0 Hypertensive heart and chronic kidney disease with heart failure and stage 1 through stage 4 chronic kidney disease, or unspecified chronic kidney disease; E87.20 Acidosis, unspecified; J44.0 Chronic obstructive pulmonary disease with (acute) lower respiratory infection; I50.32 Chronic diastolic (congestive) heart failure; J20.9 Acute bronchitis, unspecified; R65.20 Severe sepsis without septic shock; N18.30 Chronic kidney disease, stage 3 unspecified; E11.22 Type 2 diabetes mellitus with diabetic chronic kidney disease; D63.1 Anemia in chronic kidney disease; E83.39 Other disorders of phosphorus metabolism; E66.09 Other obesity due to excess calories; E87.6 Hypokalemia; E03.9 Hypothyroidism, unspecified; K76.0 Fatty (change of) liver, not elsewhere classified; F03.90 Unspecified dementia, unspecified severity, without behavioral disturbance, psychotic disturbance, mood disturbance, and anxiety; R13.12 Dysphagia, oropharyngeal phase; Z79.890 Hormone replacement therapy; Z79.899 Other long term (current) drug therapy; Z87.891 Personal history of nicotine dependence
CPT/HCPCS: 36415; 70450; 71045; 74176; 78452; 80048; 80069; 81001; 82043; 82570; 82947; 83036; 83605; 83735; 83880; 84100; 84132; 84156; 84484; 84550; 85025; 87040; 87077; 87086; 87088; 87186; 87205; 92526; 92610; 93005; 93017; 93306; 94010; 94640; 96365; 96375; 97110; 97116; 97161; 97530; 99285; A9500; J0696; J0744; J1644; J1815; J1940; J2785; J3475; J7030; J7050; J7613; J7644

== ENCOUNTER 2024-08-09 18:17 | Emergency (ER) | payer OTHER ==
--- NOTE | 2024-08-09 20:47 | RAD REPORT ---
EXAMINATION: ONE VIEW CHEST XR CLINICAL INDICATION: Female, 79 years old. Weakness, shortness of breath. TECHNIQUE: Frontal chest projection is submitted. Examination is limited by patient positioning and t echnique. COMPARISON: 07/26/2023 FINDINGS: Mild bilateral pulmonary opacities are seen with trace pleural fluid. This may represent mild interst itial pulmonary edema or infection. The heart is mildly enlarged in size.
[2024-08-09 21:14] LABS: SARS-CoV-2 Antigen CONTROL BLUE LINE VIS/BG OK; SARS-CoV-2 Antigen Rapid Res Negative (Negative)
[2024-08-09 21:15] LABS: PT Prothrombin Time 13.4 SECONDS (9.4-12.5); Protime INR 1.2
--- NOTE | 2024-08-09 21:18 | RAD REPORT ---
EXAM: CT brain without contrast HISTORY: Headache, drowsiness, weakness COMPARISON: 07/24/2023 TECHNIQUE: Multiple contiguous axial images were obtained and a CT of the brain without contrast. Sag ittal and coronal reformats were performed. FINDINGS:No evidence of hydrocephalus, intracranial hemorrhage, or extra-axial fluid collection. Mild brain atrophy with mild periventricular and deep white matter chronic microvascular ischemic skyler nges present. No midline shift or areas of brain edema. The calvarium is intact. The visualized paranasal sinuses and mastoid air cells are essentially clear . IMPRESSION: No evidence of acute intracranial abnormality.
[2024-08-09 21:19] LABS: Absolute Lymphocytes (CBC) 0.4 K/uL (0.7-4.9); Absolute Monocytes 0.7 K/uL (0.1-1.3); Absolute Neutrophil 15.6 K/uL (1.8-8.0); Basophils % 0.1 % (0-1.3); Hematocrit 38.7 % (36.0-45.0); Hemoglobin 13.1 g/dL (12.0-15.0); Lymphocytes % 2.5 % (15.3-44.8); MCH 31.7 pg (27.0-35.0); MCHC 33.8 g/dL (32.0-36.0); MCV 93.9 fL (80-100); MPV 10.1 fL (7.6-11.3); Monocytes % 4.3 % (3.3-12.3); Neutrophils % 93.1 % (41.7-73.7); Nucleated Red Blood Cells % 0.1 % (0-0); Platelets 245 thou/uL (152-406); RBC Red Blood Cell Count 4.12 M/uL (3.86-4.86); Red Cell Distribution Width 13.3 % (12.1-15.2)
[2024-08-09 21:27] LABS: Albumin 2.8 g/dL (3.4-5.0); Albumin/Globulin Ratio 0.5 (1.1-1.8); Anion Gap 13.7 mEq/L (5.0-15.0); Bilirubin Indirect, Calculated 0.6 mg/dL (0.2-0.8); Bilirubin Total 2.6 mg/dL (0.2-1.0); Globulin 5.2 g/dL (2.3-3.5); Magnesium 1.8 mg/dL (1.6-2.4); Potassium 3.7 mEq/L (3.5-5.1)
[2024-08-09] MEDS ORDERED: NA CHLORIDE 0.9% 1,000 ML ONE (21:36)
[2024-08-09 22:20] LABS: Band Neutrophils 4 % (0-1); Blood Morphology Comment NOT SEEN (NOT SEEN); Differential Total Cells Count 100; Lymphocytes 5 % (15-42); Monocytes 8 % (0-10); Platelet Estimate ADEQ; Segmented Neutrophils 83 % (40-80)
[2024-08-09 22:38] LABS: Specific Gravity 1.018 (1.005-1.030); Sqamous Epithelial None Seen /HPF (None Seen); Urine Bacteria None Seen /HPF (<20); Urine Bilirubin 1+ (Negative); Urine Blood Trace (Negative); Urine Clarity Turbid (Clear); Urine Color Yellow (Yellow); Urine Culture Reflex Order NOT NEEDED; Urine Glucose NEGATIVE (Negative); Urine Ketones NEGATIVE (Negative); Urine Microscopic Reflex YN ORDER UMIC; Urine Nitrite NEGATIVE (Negative); Urine Protein NEGATIVE (Negative); Urine Urobilinogen 2+ (Normal); Urine WBC <5 /HPF (<5)
[2024-08-09] MEDS ORDERED: CEFTRIAXONE 1000 MG/VIAL ONE (23:08)
[2024-08-09] MEDS ORDERED: NA CHLORIDE 0.9% 500 ML ONE (23:09)
[2024-08-09] MEDS ORDERED: NA CHLORIDE 0.9% 2,000 ML ONE (23:09)
--- NOTE | 2024-08-10 00:31 | EDPHYS ---
Physician Documentation [facility] Name: Carlota Wilkins Age: 79 yrs Sex: Female : 1945 Arrival Date: 08/09/2024 Time: 18:17 Bed 13 Private MD: ED Physician Agustin Munoz HPI: 08/09 20:15 This 79 yrs old Female presents to ER via Wheelchair with complaints of cp Weakness. 20:15 The patient presents to the emergency department with weakness of the entire body, cp generalized weakness, that is moderate, difficult walking, the patient is generally weak. Onset: The symptoms/episode began/occurred today. Patient's baseline: Neuro: alert but confused, Motor: no deficits, Ambulation: walks with assist only, uses walker, Speech: normal. Current symptoms: weakness, chills. 20:15 Daughter reports patient appeared to be trembling and shaking all over today while cp attempting to use restroom. Patient c/o chills and general weakness. Historical: - Allergies: 18:24 No Known Allergies; ll1 - PMHx: 18:24 Dementia; diabetes mellitus; Diverticulitis; Hypertensive disorder; Hypothyroidism; ll1 18:39 UTI with sepsis; ll1 - PSHx: 18:39 Cholecystectomy; ll1 - Immunization history:: Adult Immunizations up to date. - Infectious Disease History:: Denies. - Social history:: Smoking status: Patient denies any tobacco usage or history of. ROS: 20:20 Constitutional: Positive for chills, Negative for fever, cp 20:20 Cardiovascular: Negative for chest pain, edema, palpitations, cp 20:20 Respiratory: Negative for cough, shortness of breath, wheezing, 20:20 Abdomen/GI: Negative for abdominal pain, vomiting, diarrhea, constipation, 20:20 : Negative for flank pain, 20:20 Skin: Negative for cellulitis, rash, 20:20 Neuro: Positive for weakness, Negative for altered mental status, headache, syncope, 20:20 Constitutional: HX per hpi cp Exam: 20:20 Constitutional: The patient appears in no acute distress, alert, awake, cp non-diaphoretic, non-toxic, well developed, well nourished, 20:20 Head/Face: Normocephalic, atraumatic. cp 20:20 Eyes: Periorbital structures: appear normal, Pupils: equal, round, and reactive to light and accomodation, Conjunctiva: normal, no exudate, no injection, Sclera: no appreciated abnormality, Lids and lashes: appear normal, bilaterally, 20:20 ENT: External ear(s): are unremarkable, Nose: is normal, Mouth: Lips: moist, Oral mucosa: pink and intact, moist, Posterior pharynx: Airway: no evidence of obstruction, patent, erythema, is not appreciated, exudate, is not appreciated, 20:20 Neck: ROM/movement: is normal, is supple, without pain, no range of motions limitations, 20:20 Chest/axilla: Inspection: normal, 20:20 Cardiovascular: Rate: tachycardic, Rhythm: regular, Edema: is not appreciated, JVD: is not appreciated, 20:20 Respiratory: the patient does not display signs of respiratory distress, Respirations: normal, no use of accessory muscles, no retractions, labored breathing, is not present, Breath sounds: are clear throughout, no decreased breath sounds, no stridor, no wheezing, 20:20 Abdomen/GI: Inspection: abdomen appears normal, Palpation: abdomen is soft and non-tender, in all quadrants, 20:20 Back: CVA tenderness, is absent, 20:20 Neuro: Orientation: to person, situation, Mentation: able to follow commands, Motor: moves all fours, no focal deficits, 20:28 ECG was reviewed by the Attending Physician. cp Vital Signs: 18:37 BP 109 / 68; Pulse 100; Resp 18; Temp 98.9; Pulse Ox 95% on R/A; Weight 77.11 kg; ll1 Height 4 ft. 10 in. ; Pain 0/10; 20:30 BP 110 / 78; Pulse 82; Resp 16; Pulse Ox 97% ; jj7 21:30 BP 111 / 73; Pulse 75; Resp 16; Pulse Ox 96% ; jj7 22:00 BP 114 / 75; Pulse 70; Resp 18; Pulse Ox 95% ; jj7 23:00 BP 116 / 64; Pulse 67; Resp 21; Pulse Ox 95% ; jj7 08/10 00:00 BP 135 / 83; Pulse 61; Resp 17; Pulse Ox 96% ; jj7 01:00 BP 131 / 105; Pulse 59; Resp 17; Pulse Ox 97% ; j7 02:09 BP 126 / 67; Pulse 55; Resp 17; Pulse Ox 98% ; j7 03:12 BP 116 / 64; Pulse 58; Resp 16; Temp 97; Pulse Ox 97% ; Pain 0/10; j7 12 18:37 Body Mass Index 35.53 (77.11 kg, 147.32 cm) ll1 08/09 18:37 Pain Scale: Adult [facility] 03:12 Pain Scale: Adult [facility] MDM: 08/09 19:42 Patient medically screened. 08/10 01:17 Data reviewed: vital signs, nurses notes, lab test result(s), EKG, radiologic studies, cp CT scan, plain films. I considered the following discharge prescriptions or medication management in the emergency department Medications were administered in the Emergency Department. See MAR. ED course: transfer complete with physician, DR Maria D Hope, at [facility] for GI consult due to concern for choledocholithiasis. 08/09 20:10 Order name: Lactate w/ 2H reflex if indic.; Complete Time: 21:12 08/09 21:12 Interpretation: Reviewed. 08/09 20:10 Order name: SARS RAPID; Complete Time: 21:21 08/09 21:05 Order name: Basic Metabolic Panel; Complete Time: 22:27 EDDE 08/09 22:28 Interpretation: Normal except: NA 132; GLUC 167; BUN 24; CRE 1.47; GFR 36. 08/09 21:05 Order name: Liver (Hepatic) Function; Complete Time: 22:27 [facility] 08/09 21:05 Order name: Troponin High Sensitivity; Complete Time: 22:27 [facility] 08/09 21:05 Order name: Magnesium; Complete Time: 22:27 [facility] 08/09 21:05 Order name: CBC with Automated Diff; Complete Time: 22:27 [facility] 08/09 21:05 Order name: Protime (+INR); Complete Time: 21:21 [facility] 08/09 21:22 Interpretation: Reviewed. 08/09 21:14 Order name: Blood Culture Adult (2) 08/09 22:18 Order name: Urinalysis w/ reflexes; Complete Time: 23:02 [facility] 08/09 22:20 Order name: Manual Differential; Complete Time: 22:27 EDMS 08/09 23:08 Order name: Ghost Lactate-NO COLLECT Timer; Complete Time: 01:13 EDMS 08/10 01:17 Order name: Lipase cp 08/09 20:10 Order name: XRAY Chest (1 view); Complete Time: 21:12 cp 08/09 20:10 Order name: CT Head Brain wo Cont; Complete Time: 21:21 cp 08/09 22:32 Order name: CT Chest, Abdomen, Pelvis - W/Contrast 08/09 20:10 Order name: EKG; Complete Time: 20:10 cp 08/09 20:10 Order name: Cardiac monitoring; Complete Time: 20:42 cp 08/09 20:10 Order name: EKG - Nurse/Tech; Complete Time: 20:42 cp 08/09 20:10 Order name: IV Saline Lock; Complete Time: 20:42 cp 08/09 20:10 Order name: Labs collected and sent; Complete Time: 20:42 cp 08/09 20:10 Order name: O2 Per Protocol; Complete Time: 20:42 cp 08/09 20:10 Order name: O2 Sat Monitoring; Complete Time: 20:43 cp 08/09 20:10 Order name: Cath; Complete Time: 22:00 cp EC/12 20:28 Rate is 83 beats/min. Rhythm is regular. WV interval is normal. QRS interval is normal. cp QT interval is normal. Interpreted by me. Reviewed by me. Administered Medications: 21:47 Drug: NS 0.9% IV 1000 ml IV at 999 ml/hr Per protocol Route: IV; Rate: 999 ml/hr; Site: [facility] right antecubital; 23:18 Drug: NS 0.9% IV (30 ml/kg) 30 ml/kg IV at bolus once; Sepsis Protocol for total 2310 jj7 cc NS Route: IV; Rate: bolus; Site: right antecubital; 08/10 02:28 Follow up: IV Status: Completed infusion jj7 08/09 23:19 Drug: Rocephin IV 1 grams IV at calculated rate once; Given slow IV push per pharmacy jj7 instructions Route: IV; Rate: calculated rate; Site: right antecubital; 23:30 Follow up: IV Status: Completed infusion jj7 23:19 Not Given (Duplicate Order): ns 0.9% 1000 ml IV at 1 bolus Per protocol; 1000 mL bolus jj7 08/10 02:28 Drug: metroNIDAZOLE IVPB 500 mg 100 ml IVPB at 200 ml/hr once over 30 mins Volume: 100 jj7 ml; Route: IVPB; Rate: 200 ml/hr; Infused Over: 30 mins; Site: right antecubital; 03:21 Follow up: IV Status: Infusion continued upon transfer jj7 Disposition: 05:09 Co-signature as Attending Physician, Agustin Munoz MD I agree with the assessment sp4 and plan of care. I reviewed the patient's care provided by the Advanced Practice Provider and agree with the diagnosis and treatment plan. Disposition Summary: 08/10/24 00:31 Transfer Ordered Notes: Transfer Location: [facility] cp Reason: Higher level of care cp Condition: Stable cp Problem: new cp Symptoms: have improved cp Accepting Physician: DR Maria D Hope(08/10/24 03:22) jj7 Diagnosis - Abnormal findings on diagnostic imaging of liver and biliary tract cp - Abnormal results of liver function studies cp - Severe sepsis without septic shock cp Forms: - Medication Reconciliation Form cp - SBAR form cp Signatures: Dispatcher [employer] EDMS Brad Mcnulty PA PA cp Balwinder Das RN RN ll1 Silverio Butterfield RN RN jj7 Agustin Munoz MD MD sp4 Corrections: (The following items were deleted from the chart) 08/09 20:10 20:10 Head Brain Wo Cont+CT.RAD.BRZ ordered. EDMS EDMS 08/10 01:18 01:18 LIPASE+C.LAB.BRZ ordered. EDMS EDMS 01: 01:17 ED course: transfer complete with physician at [facility] cp for GI consult due to concern for choledocholithiasis. cp 01:23 00:31 DOCTOR cp cp 03:22 01:23 DR Maria D Hope cp jj7
--- NOTE | 2024-08-10 00:31 | ER ---
Nurse's Notes [facility] Name: Carlota Wilkins Age: 79 yrs Sex: Female : 1945 Arrival Date: 08/09/2024 Time: 18:17 Bed 13 Private MD: Diagnosis: Abnormal findings on diagnostic imaging of liver and biliary tract;Abnormal results of liver function studies;Severe sepsis without septic shock Presentation: 08/09 18:37 Chief complaint: Patient states: Started shaking on toilet at 1400 today (lasted about ll1 2 hours). Patient was talking, telling daughter she doesn't known what is wrong. Has fever before coming in, but none now. Coronavirus screen: Client denies travel out of the [place] in the last 14 days. At this time, the client does not indicate any symptoms associated with coronavirus-19. Ebola Screen: Patient denies travel to an Ebola-affected area in the 21 days before illness onset. No acute neurological deficit is noted. Initial Sepsis Screen: Does the patient meet any 2 criteria? No. Patient's initial sepsis screen is negative. Does the patient have a suspected source of infection? No. Patient's initial sepsis screen is negative. Risk Assessment: Do you want to hurt yourself or someone else? Patient reports no desire to harm self or others. Onset of symptoms was August 09, 2024. 18:37 Method Of Arrival: Wheelchair ll1 18:37 Acuity: ELISA 3 ll1 Stroke Activation: Symptom onset > 6 hours Physician: ED Attending; Name: ; Notified At: ; Arrived At: Physician: Mid-Level Provider; Name: ; Notified At: ; Arrived At: Physician: [not used]; Name: ; Notified At: ; Arrived At: Physician: [not used]; Name: ; Notified At: ; Arrived At: Physician: [not used]; Name: ; Notified At: ; Arrived At: Historical: - Allergies: 18:24 No Known Allergies; ll1 - PMHx: 18:24 Dementia; diabetes mellitus; Diverticulitis; Hypertensive disorder; Hypothyroidism; ll1 18:39 UTI with sepsis; ll1 - PSHx: 18:39 Cholecystectomy; ll1 - Immunization history:: Adult Immunizations up to date. - Infectious Disease History:: Denies. - Social history:: Smoking status: Patient denies any tobacco usage or history of. Screenin:30 [facility] ED Fall Risk Assessment (Adult) History of falling in the last 3 months, jj7 including since admission No falls in past 3 months (0 pts) Confusion or Disorientation Yes (5 pts) Intoxicated or Sedated No (0 pts) Impaired Gait No (0 pts) Mobility Assist Device Used Yes (1 pt) Altered Elimination No (0 pt) Score/Fall Risk Level 3 or more points = High Risk Oriented to surroundings, Maintained a safe environment, Educated pt \T\ family on fall prevention, incl call for assistance when getting out of bed, Assessed \T\ reinforced patient's understanding of fall precautions. Abuse screen: Denies threats or abuse. Nutritional screening: No deficits noted. Tuberculosis screening: No symptoms or risk factors identified. Assessment: 20:30 General: Appears in no apparent distress. comfortable, Behavior is calm, cooperative, jj7 appropriate for age. Pain: Complains of pain in head and abdomen. Neuro: Level of Consciousness is awake, alert, confused, Oriented to person, Reports headache weakness. GI: Parent/caregiver reports the patient having ABD PAIN. Vital Signs: 18:37 BP 109 / 68; Pulse 100; Resp 18; Temp 98.9; Pulse Ox 95% on R/A; Weight 77.11 kg; ll1 Height 4 ft. 10 in. ; Pain 0/10; 20:30 BP 110 / 78; Pulse 82; Resp 16; Pulse Ox 97% ; jj7 21:30 BP 111 / 73; Pulse 75; Resp 16; Pulse Ox 96% ; jj7 22:00 BP 114 / 75; Pulse 70; Resp 18; Pulse Ox 95% ; jj7 23:00 BP 116 / 64; Pulse 67; Resp 21; Pulse Ox 95% ; jj7 08/10 00:00 BP 135 / 83; Pulse 61; Resp 17; Pulse Ox 96% ; jj7 01:00 BP 131 / 105; Pulse 59; Resp 17; Pulse Ox 97% ; jj7 02:09 BP 126 / 67; Pulse 55; Resp 17; Pulse Ox 98% ; jj7 03:12 BP 116 / 64; Pulse 58; Resp 16; Temp 97; Pulse Ox 97% ; Pain 0/10; jj7 08/09 18:37 Body Mass Index 35.53 (77.11 kg, 147.32 cm) ll1 08/09 18:37 Pain Scale: Adult ll1 03:12 Pain Scale: Adult jj7 ED Course: 08/09 18:20 Patient arrived in ED. ra3 18:24 Arm band placed on. ll1 18:39 Triage completed. ll1 19:42 Brad Mcnulty PA is PHCP. cp 19:42 Campbell Staley MD is Attending Physician. cp 20:07 Silverio Butterfield, MARCIE is Primary Nurse. jj7 20:26 EKG done, by ED staff, reviewed by Brad AL. oe 20:30 Patient has correct armband on for positive identification. Bed in low position. Call jj7 light in reach. Side rails up X2. Adult w/ patient. Provided Education on: USE OF CALL PARADA. Client placed on continuous cardiac and pulse oximetry monitoring. NIBP monitoring applied. quality assurance monitor on. Warm blanket given. 20:35 Inserted saline lock: 20 gauge in right antecubital area, using aseptic technique. jj7 Blood collected. Flushed with 10 mL NS. 20:42 SARS RAPID Sent. jj7 20:42 Lactate w/ 2H reflex if indic. Sent. jj7 20:43 XRAY Chest (1 view) Sent. jj7 20:45 XRAY Chest (1 view) In Process Unspecified. EDMS 21:00 CT Head Brain wo Cont In Process Unspecified. EDMS 21:47 Blood Culture Adult (2) Sent. jj7 22:06 Saweyr cath inserted, using sterile technique, 16 Fr., returned martinez urine. Patient tm6 tolerated well. 22:48 Blood Culture Adult (2) Sent. jj7 22:52 CT Chest, Abdomen, Pelvis - W/Contrast In Process Unspecified. EDMS 08/10 00:31 Initiated transfer with Juan at [facility]. rv1 00:32 Agustin Munoz MD is Attending Physician. cp 01:11 Doc to Doc with [facility] Hospitalist Dr. Hope. rv1 01:40 Dr. Hope accepted pt at 0117, bed assignment was given at 0120, Juan called with rv1 MOT at 0140. 01:[address] Hope to [facility] Rm [id number]. rv1 02:00 Transfer delay due to nurse completing medication orders. rv1 02:27 EMS to transfer pt, given 15 min ETA. rv1 02:58 EMS at bedside. rv1 03:21 No provider procedures requiring assistance completed. Patient transferred, IV remains jj7 in place. Administered Medications: 08/09 21:47 Drug: NS 0.9% IV 1000 ml IV at 999 ml/hr Per protocol Route: IV; Rate: 999 ml/hr; Site: [facility] right antecubital; 23:18 Drug: NS 0.9% IV (30 ml/kg) 30 ml/kg IV at bolus once; Sepsis Protocol for total 2310 jj7 cc NS Route: IV; Rate: bolus; Site: right antecubital; 08/10 02:28 Follow up: IV Status: Completed infusion j7 08/09 23:19 Drug: Rocephin IV 1 grams IV at calculated rate once; Given slow IV push per pharmacy j7 instructions Route: IV; Rate: calculated rate; Site: right antecubital; 23:30 Follow up: IV Status: Completed infusion j7 23:19 Not Given (Duplicate Order): ns 0.9% 1000 ml IV at 1 bolus Per protocol; 1000 mL bolus j 08/10 02:28 Drug: metroNIDAZOLE IVPB 500 mg 100 ml IVPB at 200 ml/hr once over 30 mins Volume: 100 jj7 ml; Route: IVPB; Rate: 200 ml/hr; Infused Over: 30 mins; Site: right antecubital; 03:21 Follow up: IV Status: Infusion continued upon transfer j7 Medication: 08/09 20:30 VIS not applicable for this client. jj7 Outcome: 08/10 00:31 ER care complete, transfer ordered by MD. price 03:20 Transferred by ground EMS [facility] to [facility], [facility], [facility] 03:20 Condition: improved 03:22 Patient left the ED. jj7 Signatures: Dispatcher [employer] EDMS Brda Mcnulty PA PA cp Espinosa, Orlando oe Lewis, Lynsay, RN RN ll1 Silverio Butterfield RN RN jj7 Pretty Gorman rv1 Barbra Peterson RN RN tm6 Jolynn Villa ra3 Corrections: (The following items were deleted from the chart) 08/09 18:40 18:37 BP 109 / 68; Pulse 100bpm; Resp 18bpm; Pulse Ox 95% RA; Temp 98.9F; Pain 0/10, ll1 Adult; ll1
[2024-08-10] MEDS ORDERED: METRONIDAZOLE 500mg IVPB 500 MG/100 ML BAG IV ONE (01:37)
[2024-08-10 03:54] VITALS: BP 116/64; TEMP 97; O2SAT 97
--- NOTE | 2024-08-11 19:15 | RAD REPORT ---
EXAM DESCRIPTION: CT - Chest Abdomen Pelvis W Cont - 08/10/2024 6:50 am CLINICAL HISTORY: 79 years Female Chills. COMPARISON: CT Abdomen pelvis 07/24/2023. TECHNIQUE: Images were obtained in axial, coronal and sagittal planes. Intravenous contrast was admi nistered. This exam was performed according to our departmental dose-optimization program which inclu ishmael use of Automated Exposure Control, adjustment of the mA and/or kV according to patient size and/o r use of iterative reconstruction technique. FINDINGS: Decreased attenuation involving the liver consistent with fatty change. Prior cholecystect gurinder. Common bile duct is dilated measuring 1.8 cm in transverse dimension. Air is seen within the com mon bile duct. Abnormal increased attenuation is identified within the distal common bile duct at the level of the head of the pancreas. Choledocholithiasis or sludge questioned. Mild intrahepatic bilia ry dilatation centrally. No dilatation pancreatic duct. No obstructing renal or ureteral calculi bilaterally. Mild bilateral hydronephrosis right greater gallito n left. Sawyer catheter balloon within the bladder. Bladder is incompletely distended. Mucosal thicken ing is present. Punctate air collection anterior bladder. Enlarged lobular appearing uterine fundus. 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 Appendix within normal limits. No bowel obstruction, perforation, or inflammation. Small paraumbilica l hernia which contains only mesenteric fat. Enlarged heart. Increased pulmonary vascularity. Reticulation and honeycombing peripheral lungs bilat erally. Thickening interlobular septa. No acute osseous abnormality. No dilatation of abdominal aorta. Unremarkable portal vein. No adenopathy or abnormal fluid collectio ns seen. IMPRESSION: 1. Prior cholecystectomy. Dilated common bile duct. Abnormal increased attenuation wit hin the distal common bile duct at the level of the head of the pancreas indicating choledocholithias is or sludge. Correlation with MRCP would be suggested for further characterization. 2. Mild bilateral hydronephrosis right greater than left. No obstructing renal or ureteral calculi bilaterally. 3. Enlarged lobular appearing uterine fundus. 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 Correlation with pelvic ultrasound suggested for further characterization. 4. Enlarged heart with increased pulmonary vascularity. Chronic interstitial lung disease. Electronically signed by: Bria Stout MD 08/09/2024 11:49 PM CDT RP Due to temporary technical issues with the PACS/Fluency reporting system, reports are being signed by the in house radiologists without review as a courtesy to insure prompt reporting. The interpreting radiologist is fully responsible for the content of the report.
--- NOTE | 2024-08-13 13:01 | EKG ---
Test Date: 2024-08-09 Test Time: 20:21:32 Site Identification Specialist: RONDA MEASUREMENT RESULTS: Intervals: Rate: 83 MD: 192 QRSD: 96 QT: 316 QTc: 371 Hackett: P: 37 MD: 192 QRS: -55 T: 29 INTERPRETIVE STATEMENTS: Normal sinus rhythm Left axis deviation Low voltage QRS Abnormal ECG Compared to ECG 07/24/2023 18:23:02 Left-axis deviation now present Low QRS voltage now present Atrial premature complex(es) no longer present T-wave abnormality no longer present Electronically Signed On 08-13-24 12:51:07 CDT by Rafiq Dsouza
== END 2024-08-10 03:22 | disposition short-term general hospital (02) ==
LOC: ER 18:17
DX: R93.2 Abnormal findings on diagnostic imaging of liver and biliary tract (principal); R65.20 Severe sepsis without septic shock; R94.5 Abnormal results of liver function studies; E11.9 Type 2 diabetes mellitus without complications; I10 Essential (primary) hypertension; F03.90 Unspecified dementia, unspecified severity, without behavioral disturbance, psychotic disturbance, mood disturbance, and anxiety; Z11.52 Encounter for screening for COVID-19
CPT/HCPCS: 96365; 96367; 93005; 87040 ×2; 85025; 81001; 80048; 36415; 83735; 85610; 80076; 83605; 84484; 83690; 70450; 71260; 74177; 71045; 51702; 96375; 99285; 96366; 87811; Q9967; J7040; J7030 ×2; J0696

== ENCOUNTER 2025-02-11 15:46 | Emergency (ER) | payer OTHER ==
[2025-02-11] MEDS ORDERED: NA CHLORIDE 0.9% 1,000 ML ONE (16:48)
[2025-02-11 17:17] LABS: Absolute Eosinophils 0.1 K/uL (0-0.5); Absolute Lymphocytes (CBC) 1.2 K/uL (0.7-4.9); Absolute Monocytes 0.5 K/uL (0.1-1.3); Absolute Neutrophil 2.6 K/uL (1.8-8.0); Basophils % 0.4 % (0-1.3); Hematocrit 43.7 % (36.0-45.0); Hemoglobin 15.1 g/dL (12.0-15.0); Lymphocytes % 26.9 % (15.3-44.8); MCH 32.2 pg (27.0-35.0); MCHC 34.6 g/dL (32.0-36.0); MCV 93.1 fL (80-100); MPV 10.9 fL (7.6-11.3); Neutrophils % 58.7 % (41.7-73.7); Nucleated Red Blood Cells % 0.1 % (0-0); Platelets 135 thou/uL (152-406); RBC Red Blood Cell Count 4.69 M/uL (3.86-4.86); Red Cell Distribution Width 14.4 % (12.1-15.2)
--- NOTE | 2025-02-11 17:17 | RAD REPORT ---
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 CARDIAC/MEDIASTINUM: The cardiac silhouette is within normal limits. UPPER ABDOMEN: No significant abnormality. BONES: No acute abnormality. LINES/TUBES/OTHER: N/A IMPRESSION: Low lung volumes accentuates the pulmonary vasculature. Mild edema difficult to exclude.
[2025-02-11 17:18] LABS: PT Prothrombin Time 11.2 SECONDS (10-13.0); Protime INR 0.98
[2025-02-11 17:28] LABS: Specific Gravity 1.012 (1.005-1.030); Sqamous Epithelial <5 /HPF (None Seen); Urine Bacteria None Seen /HPF (<20); Urine Bilirubin NEGATIVE (Negative); Urine Blood Trace (Negative); Urine Clarity Clear (Clear); Urine Color Colorless (Yellow); Urine Culture Reflex Order NOT NEEDED; Urine Glucose NEGATIVE (Negative); Urine Ketones NEGATIVE (Negative); Urine Microscopic Reflex YN ORDER UMIC; Urine Nitrite NEGATIVE (Negative); Urine Protein NEGATIVE (Negative); Urine RBC <5 /HPF (None Seen); Urine Urobilinogen Normal (Normal); Urine WBC <5 /HPF (<5); Urine Yeast (Budding) Trace /HPF (None Seen); Urine pH 6.5 (5.0-7.0)
[2025-02-11 17:29] LABS: Albumin 3.5 g/dL (3.4-5.0); Albumin/Globulin Ratio 0.9 (1.1-1.8); Anion Gap 9.6 mEq/L (5.0-15.0); Bilirubin Total 0.5 mg/dL (0.2-1.0); Potassium 4.6 mEq/L (3.5-5.1); Protein, Total 7.5 g/dL (6.4-8.2); Troponin High Sensitivity 5.9 pg/mL (<58.9)
[2025-02-11 17:31] LABS: Influenza A Ag Negative; Influenza B Ag Negative; SARS-CoV-2 Antigen Rapid Res Negative (Negative)
--- NOTE | 2025-02-11 18:09 | RAD REPORT ---
EXAMINATION: CT ABDOMEN AND PELVIS WITH CONTRAST CLINICAL INDICATION: Female, 79 years old.prior retained stones biliary tree;Abd pain TECHNIQUE: CT abdomen and pelvis was performed, after the administration of IV contrast, as per [facility] protocol. Axial, sagittal and coronal reconstructions were obtained. One or more of the following dose reduction techniques were used: Automated exposure control, adjustment of the mA and/o r kV according to patient size, and/or iterative reconstruction. Unless otherwise specified, incidental findings do not require dedicated imaging follow-up. [id number]. COMPARISON: 08/09/2024 FINDINGS: LOWER CHEST: No acute process identified.No significant pericardial effusion. Likely pulmonary fibrot ic changes in the right middle lobe and lingula. Mild cardiomegaly. UPPER GI: No significant abnormality. LIVER: Hepatic steatosis, but otherwise unremarkable. GALLBLADDER/BILE DUCTS: Cholecystectomy. Moderate extrahepatic biliary ductal dilatation. This could be secondary to the post-cholecystectomy state. Recommend correlation with LFT's. If abnormal, consider MRCP for further evaluation. ?Pneumobilia which may be related to prior sternotomy. PANCREAS: Small cystic lesion along the pancreatic body measuring 6 mm is unchanged. SPLEEN: Unremarkable. ADRENALS: No adrenal masses. KIDNEYS AND URETERS: No hydronephrosis.Low density and/or too small to characterize renal lesions whi ch are statistically benign.No renal calculi. ABDOMINAL AORTA AND OTHER VESSELS: Normal caliber aorta and IVC. PERITONEUM: No abnormal free fluid. No free air. LYMPH NODES: No pathologic lymphadenopathy. ABDOMINAL WALL: Unremarkable SMALL BOWEL/COLON: Small bowel has normal course and caliber. No colonic wall thickening or pericolon ic inflammatory changes.Normal appendix. Mild diverticulosis without diverticulitis. Mild formed stool burden. URINARY BLADDER: Circumferential bladder wall thickening which could reflect cystitis. Correlate with urinalysis. REPRODUCTIVE ORGANS: Possible developmental uterine anomaly or intramural fibroid. MUSCULOSKELETAL: Grade 1 anterolisthesis of L4 and L5. Degenerative changes are present in the spine. ADDITIONAL FINDINGS: None. IMPRESSION: Mild improvement in biliary ductal dilatation though with increased pneumobilia which may be from oliver or instrumentation and stone extraction. Bladder wall thickening and enhancement. Correlate with urinalysis to exclude cystitis.
--- NOTE | 2025-02-11 18:31 | EDPHYS ---
Physician Documentation [facility] Name: Carlota Wilkins Age: 79 yrs Sex: Female : 1945 Arrival Date: 02/11/2025 Time: 15:46 Bed 8 Private MD: ED Physician Dash Morrison HPI: 02/11 16:22 This 79 yrs old Female presents to ER via EMS with complaints of rigors. sp3 16:22 History, physical, ROS limited secondary to dementia. 79-year-old female with history sp3 of dementia, diabetes, diverticulitis, hypertension, multiple UTIs, cholecystectomy with retained stones in the past, now presents to the ED with chief complaint of rigors x 2 days off-and-on. Patient with severe dementia and nonverbal for the most part. Family reports no significant cough, increasing void pattern, diarrhea, fever or any other symptoms concerning for infection. No travel history or known sick contacts reported by family.. Historical: - Allergies: 15:59 No Known Allergies; ld1 - PMHx: 15:59 Dementia; diabetes mellitus; Diverticulitis; Hypertensive disorder; Hypothyroidism; UTI ld1 with sepsis; - PSHx: 15:59 Cholecystectomy; ld1 - Immunization history:: Adult Immunizations up to date. - Infectious Disease History:: Denies. - Social history:: Smoking status: Patient denies any tobacco usage or history of. ROS: 16:23 Unable to obtain ROS due to baseline dementia, sp3 Exam: 16:23 Unable to obtain exam due to baseline dementia, sp3 16:23 Constitutional: The patient appears Patient awake, no acute distress, normal vital sp3 signs. No significant grimace on abdominal palpation. No active cough noted. Patient is afebrile. 16:53 ECG was reviewed by the Attending Physician. EKG demonstrates normal sinus rhythm at 60 sp3 bpm with a first-degree AV block with DC interval 234 otherwise normal intervals, normal axis, normal QRS, low voltage and nonspecific diffuse ST/T changes without evidence of acute ischemia. Vital Signs: 15:59 BP 135 / 68; Pulse 59; Resp 18; Pulse Ox 98% on R/A; Weight 72.57 kg; Height 4 ft. 11 ld1 in. ; Pain 0/10; 17:21 BP 141 / 106; Pulse 58; Resp 18; Pulse Ox 98% on R/A; ld1 18:28 BP 123 / 67; Pulse 55; Resp 18; Pulse Ox 100% on R/A; ld1 15:59 Body Mass Index 32.32 (72.57 kg, 149.86 cm) ld1 15:59 Pain Scale: Adult ld1 MDM: 15:59 Medical Screening Exam initiated sp3 16:24 Data reviewed: vital signs, nurses notes, old medical records, lab test result(s), EKG, sp3 radiologic studies. ED course: 79-year-old female with dementia now with rigors. Differential diagnosis is broad and includes viral illness, COVID-19, influenza, pneumonia, UTI, other intra-abdominal infection, among others. Workup will include general labs, chest x-ray, viral swabs, UA, CT scan of the abdomen pelvis with IV contrast, and general supportive care. Normal saline 1 L ordered. Will add antibiotics if indicated. Disposition pending workup and patient course.. 18:29 ED course: Full workup negative including CT. No cystitis on UA. Follow-up with PCP.. 02/11 16:20 Order name: Blood Culture Adult (2) 02/11 16:20 Order name: CBC with Diff; Complete Time: 17:32 3 02/11 16:20 Order name: CMP; Complete Time: 17:32 sp02/11 16:20 Order name: Lactate w/ 2H reflex if indic.; Complete Time: 17:32 02/11 16:20 Order name: Protime (+inr); Complete Time: 17:32 02/11 16:20 Order name: Urinalysis w/ reflexes; Complete Time: 17:32 sp02/11 16:21 Order name: Troponin High Sensitivity; Complete Time: 17:32 sp3 02/11 16:21 Order name: COVID-19 Ag + Flu A+B Ag; Complete Time: 17:32 sp3 02/11 16:20 Order name: Chest Single View XRAY; Complete Time: 17:32 sp02/11 16:21 Order name: CT Abd/Pelvis - IV Contrast Only; Complete Time: 18:18 sp02/11 16:20 Order name: Cardiac monitoring; Complete Time: 16:44 sp02/11 16:20 Order name: EKG - Nurse/Tech; Complete Time: 17:05 sp3 02/11 16:20 Order name: IV Saline Lock - Large Bore; Complete Time: 17:05 sp3 02/11 16:20 Order name: Labs collected and sent; Complete Time: 17:05 sp3 02/11 16:20 Order name: O2 Per Protocol; Complete Time: 16:36 sp3 02/11 16:20 Order name: O2 Sat Monitoring; Complete Time: 16:36 sp3 02/11 16:20 Order name: Vital Signs; Complete Time: 16:43 sp3 02/11 16:21 Order name: NPO; Complete Time: 16:36 sp3 Administered Medications: 17:06 Drug: NS 0.9% IV 1000 ml IV at 1000 ml once; to be given as a bolus over 60 minutes ld1 Route: IV; Rate: 1000 ml; Site: right antecubital; Disposition Summary: 02/11/25 18:31 Discharge Ordered Notes: Location: Home sp3 Condition: Stable sp3 Diagnosis - Rigors sp3 Followup: sp3 - With: Private Physician - When: Upon discharge from the Emergency Department - Reason: Continuance of care Discharge Instructions: - Discharge Summary Sheet sp3 - Fever, Adult sp3 Forms: - Medication Reconciliation Form sp3 - Antibiotic Education sp3 - Prescription Opioid Use sp3 - Patient Portal Instructions sp3 - Leadership Thank You Letter sp3 Signatures: Dispatcher [employer] EDMarisela Pack, RN RN ld1 Dash Morrison MD MD sp3 Corrections: (The following items were deleted from the chart) 16:20 16:20 BLOOD CULTURE*+BA.LAB.BRZ ordered. EDMS EDMS 16:20 16:20 CBC+H.LAB.BRZ ordered. EDMS EDMS 16:20 16:20 COMPREHENSIVE METABOLIC PANEL+C.LAB.BRZ ordered. EDMS EDMS 16:20 16:20 LACTATE+C.LAB.BRZ ordered. EDMS EDMS 16:20 16:20 PROTIME (+INR)+COAG.LAB.BRZ ordered. EDMS EDMS 16:20 16:20 Urinalysis+U.LAB.BRZ ordered. EDMS EDMS 16:20 16:20 Chest Single View+RAD.RAD.BRZ ordered. EDMS EDMS
--- NOTE | 2025-02-11 18:31 | ER ---
Nurse's Notes [facility] Name: Carlota Wilkins Age: 79 yrs Sex: Female : 1945 Arrival Date: 02/11/2025 Time: 15:46 Bed 8 Private MD: Diagnosis: Rigors Presentation: 02/11 15:59 Chief complaint: EMS states: toned out to patient home for tremors, confusion and ld1 weakness. Coronavirus screen: At this time, the client does not indicate any symptoms associated with coronavirus-19. Ebola Screen: No symptoms or risks identified at this time. Initial Sepsis Screen: Does the patient meet any 2 criteria? No. Patient's initial sepsis screen is negative. Does the patient have a suspected source of infection? No. Patient's initial sepsis screen is negative. Risk Assessment: Do you want to hurt yourself or someone else? Patient reports no desire to harm self or others. Onset of symptoms was February 11, 2025. 15:59 Method Of Arrival: EMS: [facility] ld1 15:59 Acuity: ELISA 3 ld1 Triage Assessment: 15:59 General: Appears in no apparent distress. comfortable, Behavior is calm, cooperative, ld1 appropriate for age. Pain: Denies pain. EENT: No signs and/or symptoms were reported regarding the EENT system. Neuro: Level of Consciousness is awake, alert, obeys commands, Oriented to person, place, time, situation. Cardiovascular: Capillary refill < 3 seconds Patient's skin is warm and dry. Respiratory: Airway is patent Respiratory effort is even, unlabored. GI: Abdomen is round non-distended. : No signs and/or symptoms were reported regarding the genitourinary system. Derm: No signs and/or symptoms reported regarding the dermatologic system. Musculoskeletal: No signs and/or symptoms reported regarding the musculoskeletal system. Historical: - Allergies: 15:59 No Known Allergies; ld1 - PMHx: 15:59 Dementia; diabetes mellitus; Diverticulitis; Hypertensive disorder; Hypothyroidism; UTI ld1 with sepsis; - PSHx: 15:59 Cholecystectomy; ld1 - Immunization history:: Adult Immunizations up to date. - Infectious Disease History:: Denies. - Social history:: Smoking status: Patient denies any tobacco usage or history of. Screenin:00 [facility] ED Fall Risk Assessment (Adult) History of falling in the last 3 months, ld1 including since admission No falls in past 3 months (0 pts) Confusion or Disorientation No (0 pts) Intoxicated or Sedated No (0 pts) Impaired Gait No (0 pts) Mobility Assist Device Used No (0 pt) Altered Elimination No (0 pt) Score/Fall Risk Level 0 - 2 = Low Risk Oriented to surroundings, Hourly rounding (assess needs \T\ fall precautionary measures) done. Abuse screen: Denies threats or abuse. Denies injuries from another. Nutritional screening: No deficits noted. Tuberculosis screening: No symptoms or risk factors identified. Assessment: 16:00 Reassessment: See triage assessmnet. ld1 17:21 Reassessment: Patient appears in no apparent distress at this time. No changes from ld1 previously documented assessment. Patient and/or family updated on plan of care and expected duration. Pain level reassessed. Patient is alert, oriented x 3, equal unlabored respirations, skin warm/dry/pink. Patient denies pain at this time. 17:53 Reassessment: Patient appears in no apparent distress at this time. No changes from ld1 previously documented assessment. Patient and/or family updated on plan of care and expected duration. Pain level reassessed. Vital Signs: 15:59 BP 135 / 68; Pulse 59; Resp 18; Pulse Ox 98% on R/A; Weight 72.57 kg; Height 4 ft. 11 ld1 in. ; Pain 0/10; 17:21 BP 141 / 106; Pulse 58; Resp 18; Pulse Ox 98% on R/A; ld1 18:28 BP 123 / 67; Pulse 55; Resp 18; Pulse Ox 100% on R/A; ld1 15:59 Body Mass Index 32.32 (72.57 kg, 149.86 cm) ld1 15:59 Pain Scale: Adult ld1 ED Course: 15:57 Patient arrived in ED. bd 15:59 Dash Morrison MD is Attending Physician. sp3 15:59 Triage completed. ld1 15:59 Arm band placed on right wrist. ld1 16:00 Patient has correct armband on for positive identification. Placed in gown. Bed in low ld1 position. Call light in reach. Side rails up X2. conveyor monitor on. Pulse ox on. NIBP on. Door closed. Noise minimized. Warm blanket given. 16:00 No provider procedures requiring assistance completed. ld1 17:04 Chest Single View XRAY In Process Unspecified. EDMS 17:06 Marisela Xiao, RN is Primary Nurse. ld1 17:06 COVID-19 Ag + Flu A+B Ag Sent. ld1 17:06 Troponin High Sensitivity Sent. ld1 17:06 Lactate w/ 2H reflex if indic. Sent. ld1 17:06 Blood Culture Adult (2) Sent. ld1 17:21 Cleaned of incontinence. Linen changed. ld1 17:21 COVID-19 Ag + Flu A+B Ag Sent. ld1 17:21 Blood Culture Adult (2) Sent. ld1 17:21 Lactate w/ 2H reflex if indic. Sent. ld1 17:21 Urinalysis w/ reflexes Sent. ld1 17:21 Inserted saline lock: 20 gauge in right antecubital area, using aseptic technique. ld1 Blood collected. Flushed with 10 mL NS. 17:21 Purewick applied to patient. ld1 17:23 Straight cath inserted, using sterile technique, 16 Fr. Returned clear yellow urine. ld1 Patient tolerated well. 17:50 CT Abd/Pelvis - IV Contrast Only In Process Unspecified. EDMS 18:35 IV discontinued, intact, bleeding controlled, No redness/swelling at site. ld1 Administered Medications: 17:06 Drug: NS 0.9% IV 1000 ml IV at 1000 ml once; to be given as a bolus over 60 minutes ld1 Route: IV; Rate: 1000 ml; Site: right antecubital; Medication: 16:00 VIS not applicable for this client. ld1 Outcome: 18:31 Discharge ordered by . sp3 18:35 Discharged to home ambulatory, ld1 18:35 Condition: stable 18:35 Discharge instructions given to patient, Instructed on discharge instructions, follow up and referral plans. Demonstrated understanding of instructions, follow-up care, 18:35 Patient left the ED. ld1 Signatures: Dispatcher [employer] EDMS Shira Amaya Lauren, RN RN ld1 Dash Morrison MD MD sp3
[2025-02-11 19:30] VITALS: BP 123/67; O2SAT 100
--- NOTE | 2025-02-13 12:35 | EKG ---
Test Date: 2025-02-11 Test Time: 16:50:09 Physical Fitness Teacher: Celestina SELBY MEASUREMENT RESULTS: Intervals: Rate: 56 CT: 234 QRSD: 78 QT: 436 QTc: 420 [place]: P: 38 CT: 234 QRS: -68 T: 46 INTERPRETIVE STATEMENTS: Sinus bradycardia with 1st degree AV block Left axis deviation Low voltage QRS Abnormal ECG Compared to ECG 08/09/2024 20:21:32 First degree AV block now present Sinus rhythm no longer present Electronically Signed On 02-13-25 12:26:55 CDT by Stanford Stockton
== END 2025-02-11 18:35 | disposition home or self-care (01) ==
LOC: ER 15:46
DX: R68.83 Chills (without fever) (principal); E11.9 Type 2 diabetes mellitus without complications; I10 Essential (primary) hypertension; F03.90 Unspecified dementia, unspecified severity, without behavioral disturbance, psychotic disturbance, mood disturbance, and anxiety; Z11.52 Encounter for screening for COVID-19
CPT/HCPCS: 93005; 87040 ×2; 85025; 81001; 36415; 85610; 83605; 84484; 80053; 74177; 71045; 51702; 99285; 87428; Q9967; J7030